=== PATIENT | female | born 1955 | race Caucasian/White ===

== ENCOUNTER → 2019-07-31 09:33 | Outpatient (CLI) | payer MEDICARE, OTHER, SELFPAY ==
--- NOTE | ~2019-07-31 | CT_ITS ---
EXAMINATION: CT abdomen pelvis wo con DATE: 07/31/2019 10:02 INDICATION: Left lower quadrant abdominal pain. Diverticulosis. TECHNIQUE: Computed tomography (CT) of the abdomen and pelvis was performed without intravenous contr ast. Automated exposure control and iterative reconstruction technique were employed. Exam dose: 106 7.05 mGy-cm total exam DLP. COMPARISON: 01/19/2018 CT abdomen pelvis FINDINGS: The lung bases are clear. There is a moderate sliding hiatal hernia. The liver, gallbladder, spleen, pancreas, and adrenal glands are unremarkable. No renal space occupyi ng mass lesion is evident. There is an approximately 2.5 mm nonobstructing lower pole left renal calculus. No other urinary trac t calculus or hydroureteronephrosis. There is atherosclerotic calcification but no aneurysm of the abdominal aorta. No intraperitoneal or retroperitoneal or pelvic mass lesion or adenopathy or ascites. There is prominent fat stranding in the pericolic area in the left lower abdomen and pelvis adjacent to the sigmoid colon evidence of sigmoid diverticula. Findings are most consistent with sigmoid diver ticulitis. No drainable abscess cavity is evident. There are multiple diverticula of the left and rig ht colon. No evidence of appendicitis. No bowel obstruction. No intraperitoneal free air. Small fat-containing umbilical hernia. The uterus, adnexal areas and urinary bladder are unremarkable. Included skeletal structures are unremarkable other than mild to moderate degenerative changes of the thoracic and lumbar spine. IMPRESSION: Sigmoid diverticulitis Diverticulosis of left and right colon Moderate sliding hiatal hernia 2.5 mm nonobstructing lower pole left renal calculus Dr. Cope telephoned the report on 07/31/2019 at 1142 hours to Sandee, Nurse Practitioner for Dr. Malorie yoo Reviewed, dictated and finalized at Location A. Reviewed, dictated and finalized at location A. ERY CHIEF IMPRESSION: Sigmoid diverticulitis Diverticulosis of left and right colon Moderate sliding hiatal hernia 2.5 mm nonobstructing lower pole left renal calculus Dr. Cope telephoned the report on 07/31/2019 at 1142 hours to Sandee Nurse Pr actitioner for Dr. Roman
== END ==
PROVIDERS: Visit Provider Family Medicine
DX: K57.32 Diverticulitis of large intestine without perforation or abscess without bleeding (principal); K42.9 Umbilical hernia without obstruction or gangrene; K44.9 Diaphragmatic hernia without obstruction or gangrene; N20.0 Calculus of kidney
CPT/HCPCS: 74176

== ENCOUNTER 2020-01-08 12:06 | Outpatient (CLI) | payer MEDICARE, SELFPAY ==
[2020-01-08 12:28] LABS: Basophils Absolute Auto 0.07 K/mm3 (0.00-0.10); Basophils Percent Auto 0.7 % (0.0-1.0); Eosinophils Absolute Auto 0.17 K/mm3 (0.02-0.50); Eosinophils Percent Auto 1.8 % (1.0-6.0); Hematocrit 40.5 % (35.0-42.0); Hemoglobin 12.9 g/dL (11.7-13.8); Immature Granulocyte Absolute 0.05 K/mm3 (0.00-0.00); Immature Granulocyte Percent A 0.5 % (0.0-0.0); Lymphocytes Percent Auto 31.3 % (18.0-42.0); Mean Corpuscular HGB Conc 31.9 g/dL (32.0-36.0); Mean Corpuscular Hemoglobin 29.3 pg (27.0-31.0); Mean Corpuscular Volume 91.8 fL (78.0-102.0); Monocytes Absolute Auto 0.73 K/mm3 (0.10-0.90); Monocytes Percent Auto 7.6 % (2.0-11.0); Neutrophils Absolute Auto 5.6 K/mm3 (1.7-7.2); Neutrophils Percent Auto 58.1 % (50.0-70.0); Platelet Count Result 380 K/mm3 (150-420); Red Blood Count 4.41 M/mm3 (4.20-5.40); Red Cell Distribution Width 12.8 % (11.6-14.4); White Blood Count 9.6 K/mm3 (4.8-10.8)
[2020-01-08 14:11] LABS: Erythrocyte Sedimentation Rate 34 mm/hr (0-20)
== END 2020-01-08 12:07 | disposition home or self-care (01) ==
LOC: CHSLAB 12:09
PROVIDERS: PCP Family Medicine; Visit Provider Family Medicine
DX: K12.30 Oral mucositis (ulcerative), unspecified (principal); M06.30 Rheumatoid nodule, unspecified site; R68.2 Dry mouth, unspecified
CPT/HCPCS: 36415; 85025; 85652; 86038

== ENCOUNTER 2020-08-25 10:06 | Outpatient (CLI) | payer MEDICARE, SELFPAY ==
[2020-08-25 10:17] LABS: Basophils Absolute Auto 0.07 K/mm3 (0.00-0.10); Basophils Percent Auto 0.8 % (0.0-1.0); Eosinophils Absolute Auto 0.25 K/mm3 (0.02-0.50); Eosinophils Percent Auto 2.9 % (1.0-6.0); Hematocrit 41.3 % (35.0-42.0); Hemoglobin 12.9 g/dL (11.7-13.8); Immature Granulocyte Absolute 0.03 K/mm3 (0.00-0.00); Immature Granulocyte Percent A 0.3 % (0.0-0.0); Lymphocytes Absolute Auto 2.46 K/mm3 (1.10-4.50); Lymphocytes Percent Auto 28.5 % (18.0-42.0); Mean Corpuscular HGB Conc 31.2 g/dL (32.0-36.0); Mean Corpuscular Hemoglobin 29.5 pg (27.0-31.0); Mean Corpuscular Volume 94.3 fL (78.0-102.0); Mean Platelet Volume 8.8 fl (9.2-11.8); Monocytes Absolute Auto 0.63 K/mm3 (0.10-0.90); Monocytes Percent Auto 7.3 % (2.0-11.0); Neutrophils Absolute Auto 5.2 K/mm3 (1.7-7.2); Neutrophils Percent Auto 60.2 % (50.0-70.0); Platelet Count Result 382 K/mm3 (150-420); Red Blood Count 4.38 M/mm3 (4.20-5.40); Red Cell Distribution Width 12.3 % (11.6-14.4); White Blood Count 8.6 K/mm3 (4.8-10.8)
[2020-08-25 10:29] LABS: Hemoglobin A1C 5.3 % (<5.7)
[2020-08-25 11:16] LABS: Cholesterol 190 mg/dL (0-200); HDL Direct 60 mg/dL (40-60); LDL Cholesterol Calculated 97 mg/dL (<130); Thyroid Stimulating Hormone 2.64 uIU/mL (0.36-3.74); Triglycerides 164 mg/dL (0-150)
[2020-08-28 11:53] LABS: Vitamin D 1,25 (OH)2 Total 55 pg/mL (18-72); Vitamin D2 1,25 (OH)2 <8 pg/mL; Vitamin D3 1,25 (OH)2 55 pg/mL
== END 2020-08-25 10:07 | disposition home or self-care (01) ==
PROVIDERS: PCP Family Medicine; Visit Provider Family Medicine
DX: E03.9 Hypothyroidism, unspecified (principal); I10 Essential (primary) hypertension; E55.9 Vitamin D deficiency, unspecified; E78.2 Mixed hyperlipidemia; R73.09 Other abnormal glucose
CPT/HCPCS: 36415; 80061; 82652; 83036; 84443; 85025

== ENCOUNTER 2020-08-26 10:01 | Outpatient (CLI) | payer MEDICARE, OTHER, SELFPAY ==
--- NOTE | ~2020-08-26 | DEXA_ITS ---
Bone Density Report Name: Guillermina Nicole Age: 65 Sex: Female Ethnicity: White Date of : 1955 Indication: osteopenia; height loss; Referring Provider: Maureen Roman Study: Bone densitometry was performed. Exam Date: August 26, 2020 Accession number: [id number] Bone Density: Region BMD T-score Z-score Classification AP Spine(L1-L4) 0.815 -2.1 -0.3 Osteopenia Femoral Neck (Left) 0.713 -1.2 0.3 Osteopenia Total Hip (Left) 0.939 0.0 1.3 Normal Femoral Neck (Right) 0.716 -1.2 0.4 Osteopenia Total Hip (Right) 0.886 -0.5 0.8 Normal Femoral Neck Mean 0.715 -1.2 0.4 Osteopenia Total Hip Mean 0.912 -0.2 1.0 Normal World Health Organization criteria for BMD impression classify patients as: Normal (T-score at or above -1.0), Osteopenia (T-score between -1.0 and -2.5), or Osteoporosis (T-score at or below -2.5). 10-year Fracture Risk(1): Major Osteoporotic Fracture 7.5% Hip Fracture 0.6% Reported Risk Factors: [place] (), Neck BMD=0.713, BMI=42.0 (1) FRAX(R) Version 3.08. Fracture probability calculated for an untreated patient. Fracture probability may be lower if the patient has received treatment. Previous Exams: Region Exam Age BMD T-score BMD Change BMD Change Date g/cm2 vs Baseline vs Previous AP Spine (L1-L4) 08/26/2020 65 0.815 -2.1 -0.010 (-1.2%) -0.010 (-1.2%) 10/05/2009 54 0.825 -2.0 Total Hip(Left) 08/26/2020 65 0.939 0.0 0.018 (2.0%)# 0.018 (2.0%)# 10/05/2009 54 0.921 -0.2 Total Hip(Right) 08/26/2020 65 0.886 -0.5 0.024 (2.7%)# 0.024 (2.7%)# 10/05/2009 54 0.862 -0.7 *Denotes significance at 95% confidence level, LSC for AP Spine = 0.022 g/cm2, LSC for Total Hip = 0.027 g/cm2 # Denotes dissimilar scan types or analysis methods Clinical Information Provided by Patient: Has used the following medications: Boniva (i.e. ibandronate), Fosamax (i.e. alendronate), HRT (i.e. estrogen/hormone therapy), Vitamin D Patient maximum height was 69 Drinks caffeinated beverages Onset of menses at age 14 Number of children 2 Impression: The patient has low bone mass, based on the Total Spine T-score. No significant bone loss was observed. Discussion: BONE DENSITY IS LOW AT ONE OR MORE SKELETAL SITES. This patient's lowest T-score is low at one or more skeletal sites. It meets the World Health Organization's (WHO) criteria for ?low bone mass? (T-score be
--- NOTE | ~2020-08-26 | MM_ITS ---
EXAMINATION: MM screening [facility] BI w francis HISTORY: Screening mammogram TECHNIQUE: Craniocaudal and mediolateral oblique 3-D tomosynthesis images were obtained and synthetic 2-D images were generated. CAD analysis was submitted and interpreted. COMPARISON: 06/25/2019, 03/23/2016, 08/21/2013 BREAST PARENCHYMAL COMPOSITION: There are scattered areas of fibroglandular density. FINDINGS: There is no evidence of suspicious mass, calcification, or architectural distortion to sugg est malignancy in either breast. There has been no suspicious interval change. IMPRESSION: 1. No mammographic evidence of malignancy. 2. Recommend routine screening mammography in one year. BI-RADS Category 1: Negative Reviewed, dictated and finalized at location A. 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
== END 2020-08-26 10:02 | disposition home or self-care (01) ==
PROVIDERS: PCP Family Medicine; Visit Provider Family Medicine
DX: Z78.0 Asymptomatic menopausal state (principal); Z12.31 Encounter for screening mammogram for malignant neoplasm of breast
CPT/HCPCS: 77063; 77067; 77080

== ENCOUNTER 2021-01-21 11:53 | Outpatient (CLI) | payer MEDICARE, OTHER, SELFPAY ==
[2021-01-21 12:23] LABS: Alanine Aminotransferase 16 U/L (4-35); Albumin Level 4.1 g/dL (3.5-5.1); Alkaline Phosphatase 89 U/L (38-126); Anion Gap 4 mmol/L (8-16); Aspartate Amino Transferase 22 U/L (14-36); Bilirubin,Total 0.7 mg/dL (0.2-1.3); Blood Urea Nitrogen 14 mg/dL (7-17); Calcium 9.9 mg/dL (8.4-10.2); Carbon Dioxide 30 mmol/L (22-30); Chloride 104 mmol/L (98-107); Estimated Glomerular Filt Rate > 60; Glucose 96 mg/dL (65-105); Potassium 4.1 mmol/L (3.4-5.0); Sodium 138 mmol/L (137-145)
[2021-01-21 12:25] LABS: Hemoglobin A1C 5.6 % (<5.7)
== END 2021-01-21 11:54 | disposition home or self-care (01) ==
PROVIDERS: PCP Family Medicine; Visit Provider Family Medicine
DX: I10 Essential (primary) hypertension (principal); R73.09 Other abnormal glucose
CPT/HCPCS: 36415; 80053; 83036

== ENCOUNTER 2021-08-25 12:49 | Outpatient (CLI) | payer MEDICARE, OTHER, SELFPAY ==
[2021-08-25 14:04] LABS: Cholesterol 185 mg/dL (0-200); Free T4 Free Thyroxine 1.03 ng/dL (0.76-1.46); HDL Direct 55 mg/dL (40-60); LDL Cholesterol Calculated 110 mg/dL (<130); Thyroid Stimulating Hormone 1.82 uIU/mL (0.36-3.74); Triglycerides 100 mg/dL (0-150)
[2021-08-30 07:35] LABS: Total Triiodothyronine (T3) 103 ng/dL (76-181)
== END 2021-08-25 12:50 | disposition home or self-care (01) ==
LOC: CHSLAB 12:53
PROVIDERS: PCP Family Medicine; Visit Provider Family Medicine
DX: E03.9 Hypothyroidism, unspecified (principal); E78.2 Mixed hyperlipidemia
CPT/HCPCS: 36415; 80061; 84439; 84443; 84480

== ENCOUNTER 2021-10-04 08:08 | Outpatient (CLI) | payer MEDICARE, OTHER, SELFPAY ==
--- NOTE | ~2021-10-04 | MM_ITS ---
EXAMINATION: MM screening [facility] BI w francis HISTORY: Screening mammogram TECHNIQUE: Craniocaudal and mediolateral oblique 3-D tomosynthesis images were obtained and synthetic 2-D images were generated. CAD analysis was submitted and interpreted. COMPARISON: 08/26/2020, 06/25/2019 BREAST PARENCHYMAL COMPOSITION: There are scattered areas of fibroglandular density. FINDINGS: There is no evidence of suspicious mass, calcification, or architectural distortion to sugg est malignancy in either breast. There has been no suspicious interval change. IMPRESSION: 1. No mammographic evidence of malignancy. 2. Recommend routine screening mammography in one year. BI-RADS Category 1: Negative Reviewed, dictated and finalized at location A. METER INSTALLER
== END 2021-10-04 08:09 | disposition home or self-care (01) ==
LOC: CHSIMG 08:10
PROVIDERS: PCP Family Medicine; Visit Provider Family Medicine
DX: Z12.31 Encounter for screening mammogram for malignant neoplasm of breast (principal)
CPT/HCPCS: 77063; 77067

== ENCOUNTER 2021-10-19 08:16 | Outpatient (CLI) | payer SELFPAY | END 2021-10-19 08:17 | disposition home or self-care (01) | PROVIDERS: PCP Family Medicine; Visit Provider Family Medicine | DX: E66.01 Morbid (severe) obesity due to excess calories (principal) | CPT/HCPCS: 99199 ==

== ENCOUNTER 2022-08-24 11:37 | Outpatient (CLI) | payer MEDICARE, OTHER, SELFPAY ==
[2022-08-24 12:17] LABS: Basophils Absolute Auto 0.09 K/mm3 (0.00-0.10); Eosinophils Percent Auto 2.2 % (1.0-6.0); Hematocrit 39.1 % (35.0-42.0); Hemoglobin 12.5 g/dL (11.7-13.8); Immature Granulocyte Absolute 0.04 K/mm3 (0.00-0.00); Immature Granulocyte Percent A 0.4 % (0.0-0.0); Lymphocytes Absolute Auto 2.72 K/mm3 (1.10-4.50); Lymphocytes Percent Auto 29.2 % (18.0-42.0); Mean Corpuscular Hemoglobin 29.7 pg (27.0-31.0); Mean Corpuscular Volume 92.9 fL (78.0-102.0); Mean Platelet Volume 9.2 fl (9.2-11.8); Monocytes Absolute Auto 0.68 K/mm3 (0.10-0.90); Monocytes Percent Auto 7.3 % (2.0-11.0); Neutrophils Absolute Auto 5.6 K/mm3 (1.7-7.2); Neutrophils Percent Auto 59.9 % (50.0-70.0); Platelet Count Result 366 K/mm3 (150-420); Red Blood Count 4.21 M/mm3 (4.20-5.40); Red Cell Distribution Width 12.9 % (11.6-14.4); White Blood Count 9.3 K/mm3 (4.8-10.8)
[2022-08-24 12:40] LABS: Hemoglobin A1C 5.7 % (<5.7)
[2022-08-24 12:49] LABS: Alanine Aminotransferase 18 U/L (14-59); Albumin Level 3.4 g/dL (3.4-5.0); Alkaline Phosphatase 94 U/L (46-116); Anion Gap 5 mmol/L (8-16); Aspartate Amino Transferase 12 U/L (15-37); Bilirubin,Total 0.6 mg/dL (0.00-1.00); Blood Urea Nitrogen 14 mg/dL (7-18); Carbon Dioxide 31 mmol/L (21-32); Chloride 103 mmol/L (98-108); Cholesterol 180 mg/dL (0-200); Estimated Glomerular Filt Rate > 60; Glucose 91 mg/dL (70-99); HDL Direct 64 mg/dL (40-60); LDL Cholesterol Calculated 95 mg/dL (<130); Osmolality Calculated 288 mOsm/kg (285-295); Potassium 4.3 mmol/L (3.5-5.1); Sodium 139 mmol/L (136-145); Total Protein 6.7 g/dL (6.4-8.2); Triglycerides 107 mg/dL (0-150)
[2022-08-24 13:14] LABS: Thyroid Stimulating Hormone Reflex 2.49 u/IU/mL (0.36-3.74)
[2022-08-28] LABS: Vitamin D 1,25 (OH)2 Total 46 pg/mL (18-72); Vitamin D2 1,25 (OH)2 <8 pg/mL; Vitamin D3 1,25 (OH)2 46 pg/mL
== END 2022-08-24 11:38 | disposition home or self-care (01) ==
LOC: CHSLAB 11:40
PROVIDERS: PCP Nurse Practitioner Gerontology; Visit Provider Nurse Practitioner Gerontology
DX: E03.9 Hypothyroidism, unspecified (principal); Z78.0 Asymptomatic menopausal state; E78.2 Mixed hyperlipidemia; I10 Essential (primary) hypertension; R73.09 Other abnormal glucose; E55.9 Vitamin D deficiency, unspecified
CPT/HCPCS: 36415; 80053; 80061; 82652; 83036; 84443; 85025

== ENCOUNTER 2022-08-30 13:24 | Outpatient (CLI) | payer MEDICARE, OTHER, SELFPAY ==
--- NOTE | ~2022-08-30 | DEXA_ITS ---
Bone Density Report Name: JAYE SIMPSON Age: 67 Sex: Female Ethnicity: White Date of : 1955 Indication: postmenopausal; screening for osteoporosis; parental hip fracture; height loss; inflammatory bowel disease; Referring Provider: HUGO BERGERON Study: Bone densitometry was performed. Exam Date: August 30, 2022 Accession number: [id number] Bone Density: Region BMD T-score Z-score Classification AP Spine(L1, L2, L3) 0.866 -1.4 0.6 Osteopenia Femoral Neck (Left) 0.690 -1.4 0.3 Osteopenia Total Hip (Left) 0.896 -0.4 1.0 Normal Femoral Neck (Right) 0.707 -1.3 0.4 Osteopenia Total Hip (Right) 0.878 -0.5 0.9 Normal Femoral Neck Mean 0.698 -1.4 0.3 Osteopenia Total Hip Mean 0.887 -0.5 1.0 Normal World Health Organization criteria for BMD impression classify patients as: Normal (T-score at or above -1.0), Osteopenia (T-score between -1.0 and -2.5), or Osteoporosis (T-score at or below -2.5). 10-year Fracture Risk: FRAX not reported because: Treated for osteoporosis Clinical Information Provided by Patient: Parent has had a hip fracture Is being treated for osteoporosis Has used the following medications: Boniva (i.e. ibandronate), Fosamax (i.e. alendronate), Vitamin D, Calcium Has the following medical conditions: Inflammatory bowel diseases Patient maximum height was 68 Menopause Age: 55 No regular weight bearing exercise Drinks caffeinated beverages Onset of menses at age 14 Number of children 2 Impression: The patient has low bone mass, based on the Total Spine T-score. The patient has risk factors, including: parental hip fracture. Discussion: It is important to ask patients whether they are taking their medications and to encourage continued and appropriate compliance with their osteoporosis therapies to reduce fracture risk. It is also important to review their risk factors and encourage appropriate calcium and vitamin D intakes, exercise, fall prevention and other lifestyle measures. Follow-Up: Consider a repeat BMD and Vertebral Fracture Assessment (VFA) exam in 2 years or sooner if medically necessary, to reassess this patient's status. Reported by: Dr. Marin Moncada on 08/30/2022 1:53:00 PM. Reviewed, dictated and finalized at location A. [facility]ITAL[facility]
== END 2022-08-30 13:25 | disposition home or self-care (01) ==
LOC: CHSIMG 13:26
PROVIDERS: PCP Family Medicine; Visit Provider Nurse Practitioner Gerontology
DX: Z78.0 Asymptomatic menopausal state (principal); E03.9 Hypothyroidism, unspecified; E78.2 Mixed hyperlipidemia; I10 Essential (primary) hypertension; M85.89 Other specified disorders of bone density and structure, multiple sites
CPT/HCPCS: 77080

== ENCOUNTER 2022-10-07 12:17 | Outpatient (CLI) | payer MEDICARE, OTHER, SELFPAY ==
--- NOTE | ~2022-10-07 | MM_ITS ---
EXAMINATION: MM screening [facility] BI w francis HISTORY: Screening TECHNIQUE: Craniocaudal and mediolateral oblique 3-D tomosynthesis images were obtained and synthetic 2-D images were generated. CAD analysis was submitted and interpreted. COMPARISON: Comparison to multiple prior studies sequentially, with oldest reviewed study dated 08/11. BREAST PARENCHYMAL COMPOSITION: There are scattered areas of fibroglandular density. FINDINGS: There is no evidence of suspicious mass, calcification, or architectural distortion to sugg est malignancy in either breast. There has been no suspicious interval change. IMPRESSION: 1. No mammographic evidence of malignancy. 2. Recommend routine screening mammography in one year. BI-RADS Category 1: Negative. Reviewed, dictated and finalized at location A. PICKER
== END 2022-10-07 12:18 | disposition home or self-care (01) ==
LOC: CHSIMG 12:19
PROVIDERS: PCP Family Medicine; Visit Provider Family Medicine
DX: Z12.31 Encounter for screening mammogram for malignant neoplasm of breast (principal)
CPT/HCPCS: 77063; 77067

== ENCOUNTER 2022-12-01 19:07 | Emergency (ER) | payer MEDICARE, OTHER, SELFPAY ==
[2022-12-01 19:20] VITALS: BP 103/57; PULSE 82; RESP 18; TEMP 36.3; O2SAT 98
--- NOTE | 2022-12-01 19:24 | ECG_ITS ---
Measurements Intervals [place] Rate: 72 P: 61 NM: 219 QRS: 7 QRSD: 102 T: -5 QT: 426 QTc: 467 Interpretive Statements SINUS RHYTHM WITH FIRST DEGREE AV BLOCK CONSIDER INFERIOR INFARCT, AGE INDETERMINATE BASELINE ARTIFACT- I, II, AVR, AVF ABNORMAL ECG NO PREVIOUS ECG AVAILABLE FOR COMPARISON Electronically Signed On 12-01-2022 20:51:56 CDT by Simon Mauricio D.O.
[2022-12-01] MEDS: SODIUM CHLORIDE 0.9% IV 1,000 ML 999 ML IV CONT (19:39)
[2022-12-01] MEDS: ONDANSETRON INJ 4 MG/2 ML VIAL IV PUSH ×2 (19:39→21:01)
[2022-12-01 19:40] LABS: Basophils Absolute Auto 0.05 K/mm3 (0.00-0.10); Basophils Percent Auto 0.4 % (0.0-1.0); Eosinophils Percent Auto 1.6 % (1.0-6.0); Hematocrit 38.1 % (35.0-42.0); Hemoglobin 12.2 g/dL (11.7-13.8); Immature Granulocyte Absolute 0.04 K/mm3 (0.00-0.00); Immature Granulocyte Percent A 0.3 % (0.0-0.0); Lymphocytes Percent Auto 34.6 % (18.0-42.0); Mean Corpuscular Hemoglobin 29.7 pg (27.0-31.0); Mean Corpuscular Volume 92.7 fL (78.0-102.0); Mean Platelet Volume 9.2 fl (9.2-11.8); Monocytes Absolute Auto 0.86 K/mm3 (0.10-0.90); Monocytes Percent Auto 7.1 % (2.0-11.0); Neutrophils Absolute Auto 6.8 K/mm3 (1.7-7.2); Platelet Count Result 381 K/mm3 (150-420); Red Blood Count 4.11 M/mm3 (4.20-5.40); Red Cell Distribution Width 13.1 % (11.6-14.4); White Blood Count 12.2 K/mm3 (4.8-10.8)
[2022-12-01 19:55] LABS: Alanine Aminotransferase 20 U/L (14-59); Albumin Level 3.3 g/dL (3.4-5.0); Alkaline Phosphatase 93 U/L (46-116); Anion Gap 13 mmol/L (8-16); Aspartate Amino Transferase 15 U/L (15-37); Bilirubin,Total 0.5 mg/dL (0.00-1.00); Blood Urea Nitrogen 16 mg/dL (7-18); Calcium 8.9 mg/dL (8.5-10.1); Carbon Dioxide 24 mmol/L (21-32); Chloride 103 mmol/L (98-108); Estimated CRCL calculation 69 ml/min; Estimated Glomerular Filt Rate > 60; Glucose 169 mg/dL (70-99); Lipase 19 U/L (16-77); Osmolality Calculated 295 mOsm/kg (285-295); Potassium 3.7 mmol/L (3.5-5.1); Sodium 140 mmol/L (136-145)
[2022-12-01 20:25] VITALS: BP 116/54; PULSE 79; RESP 18; O2SAT 97
[2022-12-01 20:25] LABS: Influenza A QL RT-PCR Negative (Negative); Influenza B QL RT-PCR Negative (Negative); SARS-CoV-2 RNA PCR Negative (Negative)
[2022-12-01 20:26] LABS: RSV RNA, RT-PCR Negative (Negative)
--- NOTE | 2022-12-01 20:48 | ED.GENADULT ---
HPI - General Adult General Chief complaint: Unspecified Stated complaint: Nausea/Vomiting/Diarrhea Time Seen by Provider: 12/01/22 19:13 Source: patient and family Mode of arrival: ambulatory History of Present Illness HPI narrative: Patient is a 67-year-old female with history of hypertension presents via EMS with a 3 day history of nausea vomiting and diarrhea otherwise there is no abdominal pain no flank pain no dysuria or hematuria no chest pain or shortness of breath. Patient has been having symptoms for the last 3 days and has intensified over the last couple of hours and EMS was called to bring the patient to the ER. Otherwise she is afebrile has been having episodes of nausea and vomiting. Onset (ago): day(s) Severity: moderate Related Data Home Medications Medication Instructions Recorded Confirmed aspirin 325 mg tablet 325 mg PO DAILY 07/26/19 12/01/22 tramadol 50 mg tablet 50 mg PO Q6H PRN Knee pain 06/09/21 12/01/22 Allergies Allergy/AdvReac Type Severity Reaction Status Date / Time hydrocodone Allergy Mild Vomitting Verified 12/01/22 19:20 oxycodone Allergy Unknown nausea Verified 12/01/22 19:20 Review of Systems Review of Systems: All systems reviewed & are unremarkable except as noted in HPI and below PMFSH Past Medical History Medical History BMI greater than 40 Essential (primary) hypertension Left knee DJD Mixed hyperlipidemia Right knee DJD Surgical History Surgical History History of cataract surgery Family History Family History Grandparent Diabetes mellitus Mother Cerebrovascular accident Social History Social History Social History: Smoking status: Former smoker Second hand tobacco smoke exposure: No Smoking end date: 09/11/78 Alcohol intake: never Alcohol use details: pt drinks socially Substance use: never Substance use type: does not use Living arrangements: with family Occupation/Education: retired Gender identity (if verbalized by the patient): Female Sexual Orientation (if Verbalized by the Patient): Straight or Heterosexual Exam Const: General: cooperative, healthy appearing, comfortable, no acute distress, well developed and alert HENMT: Head: normal to inspection Face/Nose/Sinus: Normal external nose present Face and sinus: normal facial exam Mouth: Yes Normal oral and palatal mucosa present and Yes moist mucous membranes abnormal Eyes: General: appearance normal, both eyes and all related structures Visual Reyes: normal visual reyes by confrontation EOM: EOMs intact bilaterally Neck: Neck: normal visual inspection, full ROM and no lymphadenopathy Chest: Chest palpation & inspection: normal inspection of the chest and normal palpation of entire chest wall Resp: Effort & Inspection: normal respiratory effort and able to speak in complete sentences Cardio: Jugular venous distension: no JVD Palpation: normal PMI Rate: regular rate Rhythm: regular rhythm GI: Inspection: normal to inspection Auscultation: normal bowel sounds : General: Yes bimanual renal exam normal bilaterally Back/Spine/Pelvis: Cervical Spine: normal cervical lordosis and cervical ROM normal Thoracic/Lumbar Spine: thoracic and lumbar spine normal to inspection and thoraco-lumbar ROM normal Skin: General skin exam: normal color and no rashes or lesions noted Rashes: no rashes Neuro: General: oriented to person, oriented to place, oriented to time and patient oriented x3 Extrem: General: normal to inspection, full ROM and capillary refill normal Psych: Appearance: grossly normal Mental Status: mental status grossly normal Speech and movement: Normal speech and movement present Course Course Emergency Course: Labs were re
[2022-12-01 21:13] LABS: Appearance Urine Clear (Clear); Bilirubin Urine 1+ (Negative); Blood Urine Negative (Negative); Color Urine Yellow (Yellow); Glucose Urine UA Negative (Negative); Ketones Urine Negative (Negative); Leukocyte Esterase Ur 1+ LEU/UL (Negative); Nitrate Urine Negative (Negative); Protein Urine Trace (Negative); Specific Grav Ur >= 1.030 (1.010-1.020)
[2022-12-01 21:15] VITALS: BP 128/60; PULSE 79; RESP 18; O2SAT 96
[2022-12-01 21:18] LABS: Add Urine Microscopic? YES; Squamous Epithelial Cell Urine Many /hpf (Few); WBC Urine >75 /hpf (0-3)
[2022-12-01 21:19] LABS: Amorphous Sediment Urine Heavy; Bacteria Urine 4+ /hpf; Mucus Urine Heavy /lpf
== END 2022-12-01 22:04 | disposition home or self-care (01) ==
PROVIDERS: Emergency Provider Emergency Medicine; PCP Family Medicine
DX: K52.9 Noninfective gastroenteritis and colitis, unspecified (principal); E86.0 Dehydration; N39.0 Urinary tract infection, site not specified; I10 Essential (primary) hypertension; Z79.82 Long term (current) use of aspirin; Z79.891 Long term (current) use of opiate analgesic; Z87.891 Personal history of nicotine dependence; Z20.822 Contact with and (suspected) exposure to COVID-19
CPT/HCPCS: 36415; 80053; 81001; 83690; 85025; 87086; 87088; 87637; 93005; 96361; 96365; 96375; 96376; 99283; 99284; J0696; J2405; J7030

== ENCOUNTER 2023-01-09 09:42 | Outpatient (CLI) | payer MEDICARE, SELFPAY ==
[2023-01-09 09:59] LABS: Basophils Absolute Auto 0.07 K/mm3 (0.00-0.10); Basophils Percent Auto 0.9 % (0.0-1.0); Eosinophils Absolute Auto 0.16 K/mm3 (0.02-0.50); Hematocrit 39.4 % (35.0-42.0); Hemoglobin 12.7 g/dL (11.7-13.8); Immature Granulocyte Absolute 0.03 K/mm3 (0.00-0.00); Immature Granulocyte Percent A 0.4 % (0.0-0.0); Lymphocytes Absolute Auto 2.89 K/mm3 (1.10-4.50); Lymphocytes Percent Auto 35.7 % (18.0-42.0); Mean Corpuscular HGB Conc 32.2 g/dL (32.0-36.0); Mean Corpuscular Hemoglobin 29.7 pg (27.0-31.0); Mean Corpuscular Volume 92.3 fL (78.0-102.0); Mean Platelet Volume 8.7 fl (9.2-11.8); Monocytes Absolute Auto 0.48 K/mm3 (0.10-0.90); Monocytes Percent Auto 5.9 % (2.0-11.0); Neutrophils Absolute Auto 4.5 K/mm3 (1.7-7.2); Neutrophils Percent Auto 55.1 % (50.0-70.0); Platelet Count Result 351 K/mm3 (150-420); Red Blood Count 4.27 M/mm3 (4.20-5.40); White Blood Count 8.1 K/mm3 (4.8-10.8)
[2023-01-09 10:44] LABS: Alanine Aminotransferase 37 U/L (14-59); Albumin Level 3.4 g/dL (3.4-5.0); Alkaline Phosphatase 95 U/L (46-116); Anion Gap 9 mmol/L (8-16); Aspartate Amino Transferase 18 U/L (15-37); Bilirubin,Total 0.6 mg/dL (0.00-1.00); Blood Urea Nitrogen 12 mg/dL (7-18); Calcium 9.3 mg/dL (8.5-10.1); Carbon Dioxide 27 mmol/L (21-32); Chloride 106 mmol/L (98-108); Estimated Glomerular Filt Rate > 60; Free T4 Free Thyroxine 1.04 ng/dL (0.76-1.46); Glucose 104 mg/dL (70-99); Osmolality Calculated 293 mOsm/kg (285-295); Potassium 4.2 mmol/L (3.5-5.1); Sodium 142 mmol/L (136-145); Thyroid Stimulating Hormone 2.41 uIU/mL (0.36-3.74); Total Protein 6.8 g/dL (6.4-8.2)
[2023-01-09 12:39] LABS: Appearance Urine Clear (Clear); Bilirubin Urine Negative (Negative); Blood Urine Trace-Intact (Negative); Color Urine Light Yellow (Yellow); Glucose Urine UA Negative (Negative); Ketones Urine Negative (Negative); Leukocyte Esterase Ur Trace LEU/UL (Negative); Nitrate Urine Negative (Negative); Protein Urine Negative (Negative); Specific Grav Ur <= 1.005 (1.010-1.020)
[2023-01-09 12:43] LABS: Add Urine Microscopic? YES; Bacteria Urine Trace /hpf; RBC Urine None seen /hpf (0-2); Squamous Epithelial Cell Urine Few /hpf (Few); WBC Urine 0-3 /hpf (0-3)
[2023-01-14 04:44] LABS: Total Triiodothyronine (T3) 113.5 ng/dL (76-181)
== END 2023-01-09 09:43 | disposition home or self-care (01) ==
PROVIDERS: PCP Family Medicine; Visit Provider Nurse Practitioner Gerontology
DX: R94.31 Abnormal electrocardiogram [ECG] [EKG] (principal); R55 Syncope and collapse; E78.2 Mixed hyperlipidemia; E03.9 Hypothyroidism, unspecified
CPT/HCPCS: 36415; 80053; 81001; 84439; 84443; 84480; 85025

== ENCOUNTER 2023-01-16 12:31 | Outpatient (CLI) | payer MEDICARE, OTHER, SELFPAY ==
--- NOTE | ~2023-01-16 | US_ITS ---
EXAMINATION: US carotid duplex BI DATE: 01/16/2023 13:26 INDICATION: Syncope and collapse TECHNIQUE: Grayscale, color Doppler, and pulsed Doppler images of the cervical carotid arteries were obtained. The degree of vessel stenosis is placed in one of the following categories: normal, <50%, 5 0-69%, >=70% but less than near-occlusion, near-occlusion, or total occlusion. Note that percent sten osis relative to normal distal artery lumen diameter is indirectly measured from velocity measurement s as described by Jaxon, et al. Radiology 2003; 229:340-346. COMPARISON: None. FINDINGS: RIGHT: The right common carotid artery (CCA) peak systolic velocity (PSV) is 75 cm/s. The right internal car otid artery (ICA) PSV is 88 cm/s. The right ICA end-diastolic velocity (EDV) is 35 cm/s. The right IC A/CCA PSV ratio is 1.2. Grayscale and color Doppler images yield an estimate of <50% diameter reducti on from plaque in the ICA. The external carotid artery (ECA) PSV is 103 cm/s. There is antegrade flow in the right vertebral artery. LEFT: The left CCA PSV is 97 cm/s. The left ICA PSV is 81 cm/s. The left ICA EDV is 35 cm/s. The left ICA/C CA PSV ratio is 0.8. Grayscale and color Doppler images yield an estimate of <50% diameter reduction from plaque in the ICA. The ECA PSV is 95 cm/s. There is antegrade flow in the left vertebral artery. IMPRESSION: 1. <50% stenosis from minimal plaque in the right internal carotid artery. 2. <50% stenosis from minimal plaque in the left internal carotid artery. Reviewed, dictated and finalized at location A.
--- NOTE | ~2023-01-16 | XR_ITS ---
XR chest 2V 01/16/2023 12:52 Indication: Syncope. Shortness of breath. Procedure: 2 view chest Comparison: 02/14/2013 Findings: Heart size normal. No focal air space disease, pulmonary edema, pleural effusion or suspect ed pneumothorax. There are nodular densities in the right lower lung which may represent confluence n o focal opacities, although parenchymal nodule not excluded. There is moderate thoracic spondylosis w ith accentuated kyphosis. Impression: 1: Nodular densities right lower thorax. Recommend correlation with CT chest to exclude parenchymal n odule. Reviewed, dictated and finalized at location B. Impression: 1: Nodular densities right lower thorax. Recommend correlation with CT chest to exclude parenchymal nodule.
--- NOTE | ~2023-01-16 | CT_ITS ---
EXAMINATION: CT brain wo con DATE: 01/16/2023 12:56 INDICATION: Syncope. Headache. TECHNIQUE: Computed tomography (CT) of the head was performed without intravenous contrast. The mA wa s adjusted according to patient size. Iterative reconstruction technique was employed. The dose-lengt h product was 605.33 mGy-cm. COMPARISON: None FINDINGS: There is no intracranial hemorrhage, acute infarction, or abnormal intracranial mass lesion . The ventricles are normal in size. There are likely changes of right ocular lens replacement surger y. There is mild mucosal thickening in the ethmoid sinuses. The mastoid air cells are normal. IMPRESSION: 1. Normal brain. Reviewed, dictated and finalized at location A. IMPRESSION: 1. Normal brain.
== END 2023-01-16 12:32 | disposition home or self-care (01) ==
PROVIDERS: PCP Family Medicine; Visit Provider Nurse Practitioner Gerontology
DX: R94.31 Abnormal electrocardiogram [ECG] [EKG] (principal); E03.9 Hypothyroidism, unspecified; E78.2 Mixed hyperlipidemia; R55 Syncope and collapse; I65.23 Occlusion and stenosis of bilateral carotid arteries
CPT/HCPCS: 70450; 71046; 93880

== ENCOUNTER 2023-01-20 13:08 | Outpatient (CLI) | payer MEDICARE, OTHER, SELFPAY ==
--- NOTE | ~2023-01-20 | CT_ITS ---
CT Scan of the Chest without Contrast: Clinical Indication: Abnormal findings on diagnostic imaging Technique: Contiguous sections were acquired throughout the chest without intravenous contrast. Dose reduction technique was used on this scan by utilizing automated exposure control and iterative recon struction technique. The dose-length product (DLP) was 569.96 mGy-cm. Findings: There is no evidence of any significant mediastinal, hilar or axillary lymphadenopathy. The mediastin al soft tissues appear normal. There is no evidence of pleural or pericardial effusion. The lungs are clear. No pulmonary nodules or infiltrates are noted. Images through the upper abdomen reveal moderate hiatal hernia. Impression: Moderate hiatal hernia. Clear lungs. Reviewed, dictated and finalized at location . Impression: Moderate hiatal hernia. Clear lungs.
== END 2023-01-20 13:09 | disposition home or self-care (01) ==
PROVIDERS: PCP Family Medicine; Visit Provider Nurse Practitioner Gerontology
DX: R93.89 Abnormal findings on diagnostic imaging of other specified body structures (principal); K44.9 Diaphragmatic hernia without obstruction or gangrene
CPT/HCPCS: 71250

== ENCOUNTER 2023-02-20 13:47 | Outpatient (CLI) | payer MEDICARE, OTHER, SELFPAY ==
--- NOTE | 2023-02-20 14:03 | ECHO_ITS ---
Patient Info Name: Guillermina Nicole Age: 67 years : 1955 Gender: Female Ht: 67 in Wt: 260 lbs BSA: 2.42 m2 HR: 66 bpm BP: 120 / 80 mmHg Technical Quality: Fair Exam Date: 02/20/2023 1:53 PM Exam Location: [facility] Patient Status: Outpatient Admit Date: 02/20/2023 Staff Ordering Physician: Simon Mauricio DO Apple Packing Header: Nhung Ramírez RDCS Attending Provider: Simon Mauricio DO Referring Physician: Hang RONQUILLO; Exam Type: CA echo dop color flow w con Study Info Indications - other forms of dyspnea Complete two-dimensional, color flow and Doppler transthoracic echocardiogram is performed with contrast to opacify the left ventricle and to improve the deliniation of the left ventricle endocardial borders. Contrast/Agitated Saline Contrast/Ag. Saline: Definity Amount: 3.00 ml Summary 1. Technically suboptimal study due to poor sonographic images. 2. Definity contrast administered improved wall motion interpretation. 3. Left ventricular chamber dimension is normal. 4. Left ventricular systolic function is normal, estimated at 60-65%. 5. There is mild concentric increased left ventricular wall thickness. 6. The left ventricular diastolic function is grade I diastolic dysfunction. 7. E/e' 10 is mildly elevated. 8. There is trace tricuspid valve regurgitation. 9. No pulmonary hypertension, estimated pulmonary arterial systolic pressure is 8 mmHg. Left Ventricle E/e' 10 is mildly elevated. Definity contrast administered improved wall motion interpretation. Technically suboptimal study due to poor sonographic images. Left ventricular chamber dimension is normal. Left ventricular systolic function is normal, estimated at 60-65%. There is mild concentric increased left ventricular wall thickness. The left ventricular diastolic function is grade I diastolic dysfunction. Right Ventricle Right ventricular systolic function is normal and with normal TAPSE 3.3 cm. Right ventricular chamber dimension is normal. Left Atria Left atrial chamber dimension is normal. Right Atria Right atrial chamber dimension is normal. Aortic Valve The aortic valve is trileaflet. There is no aortic valve stenosis. There is no aortic valve regurgitation. Pulmonic Valve There is no pulmonic regurgitation. Mitral Valve There is no mitral valve stenosis. There is no mitral valve regurgitation. Tricuspid Valve There is trace tricuspid valve regurgitation. No pulmonary hypertension, estimated pulmonary arterial systolic pressure is 8 mmHg. Pericardium/Pleural There is no pericardial effusion. Inferior Vena Cava Normal inferior vena cava with >50% collapse upon inspiration consistent with normal right atrial pressure, 5 mmHg. Aorta The aortic root size at the sinus of Valsalva is normal. Left Ventricular Outflow Tract Name Value Normal LVOT 2D LVOT Diameter 2.21 cm LVOT Doppler LVOT Peak Velocity 98.29 cm/s LVOT Peak Gradient 4 mmHg LVOT Mean Gradient 2 mmHg LVOT VTI 26.87 cm LVOT VTI/AV VTI Ratio 0.85 LVOT Stroke Volume
== END 2023-02-20 13:48 | disposition home or self-care (01) ==
PROVIDERS: PCP Family Medicine; Visit Provider Internal Medicine Cardiovascular Disease
DX: R06.09 Other forms of dyspnea (principal)
CPT/HCPCS: C8929

== ENCOUNTER 2023-08-31 11:22 | Outpatient (CLI) | payer MEDICARE, OTHER, SELFPAY ==
[2023-08-31 12:33] LABS: Alanine Aminotransferase 13 U/L (14-59); Albumin Level 3.6 g/dL (3.4-5.0); Alkaline Phosphatase 88 U/L (46-116); Anion Gap 3 mmol/L (8-16); Aspartate Amino Transferase 12 U/L (15-37); Bilirubin,Total 0.7 mg/dL (0.00-1.00); Blood Urea Nitrogen 11 mg/dL (7-18); Calcium 9.5 mg/dL (8.5-10.1); Carbon Dioxide 33 mmol/L (21-32); Chloride 102 mmol/L (98-108); Cholesterol 211 mg/dL (0-200); Estimated Glomerular Filt Rate > 60; Glucose 91 mg/dL (70-99); HDL Direct 63 mg/dL (40-60); LDL Cholesterol Calculated 123 mg/dL (<130); Magnesium 2.1 mg/dL (1.8-2.4); Osmolality Calculated 285 mOsm/kg (285-295); Potassium 4.8 mmol/L (3.5-5.1); Sodium 138 mmol/L (136-145); Total Protein 6.9 g/dL (6.4-8.2); Triglycerides 124 mg/dL (0-150)
== END 2023-08-31 11:23 | disposition home or self-care (01) ==
LOC: CHSLAB 11:25
PROVIDERS: PCP Family Medicine; Visit Provider Internal Medicine Cardiovascular Disease
DX: E78.2 Mixed hyperlipidemia (principal)
CPT/HCPCS: 36415; 80053; 80061; 83735

== ENCOUNTER 2024-03-07 11:17 | Outpatient (CLI) | payer MEDICARE, SELFPAY ==
[2024-03-07 11:38] LABS: Basophils Absolute Auto 0.07 K/mm3 (0.00-0.10); Basophils Percent Auto 0.7 % (0.0-1.0); Eosinophils Absolute Auto 0.22 K/mm3 (0.02-0.50); Eosinophils Percent Auto 2.1 % (1.0-6.0); Hemoglobin 11.6 g/dL (11.7-13.8); Immature Granulocyte Absolute 0.06 K/mm3 (0.00-0.00); Immature Granulocyte Percent A 0.6 % (0.0-0.0); Lymphocytes Absolute Auto 2.65 K/mm3 (1.10-4.50); Lymphocytes Percent Auto 25.4 % (18.0-42.0); Mean Corpuscular HGB Conc 31.4 g/dL (32-36); Mean Corpuscular Hemoglobin 28.7 pg (27.0-31.0); Mean Corpuscular Volume 91.6 fL (78.0-102.0); Mean Platelet Volume 8.5 fl (9.2-11.8); Monocytes Absolute Auto 0.72 K/mm3 (0.10-0.90); Monocytes Percent Auto 6.9 % (2.0-11.0); Neutrophils Absolute Auto 6.72 K/mm3 (1.70-7.20); Neutrophils Percent Auto 64.3 % (50.0-70.0); Platelet Count Result 446 K/mm3 (150-420); Red Blood Count 4.04 M/mm3 (4.20-5.40); Red Cell Distribution Width 13.2 % (11.6-14.4); White Blood Count 10.4 K/mm3 (4.8-10.8)
[2024-03-07 12:13] LABS: Alanine Aminotransferase 19 U/L (14-59); Albumin Level 3.2 g/dL (3.4-5.0); Alkaline Phosphatase 88 U/L (46-116); Anion Gap 6 mmol/L (4-12); Aspartate Amino Transferase 14 U/L (15-37); Bilirubin,Total 0.5 mg/dL (0.00-1.00); Blood Urea Nitrogen 12 mg/dL (7-18); CRP < 0.5 mg/dL (0.0-0.9); Calcium 9.2 mg/dL (8.5-10.1); Carbon Dioxide 28 mmol/L (21-32); Chloride 103 mmol/L (98-108); Creatine Kinase 30 U/L (26-192); Estimated Glomerular Filt Rate > 60; Glucose 89 mg/dL (70-99); Osmolality Calculated 282 mOsm/kg (285-295); Potassium 4.5 mmol/L (3.5-5.1); Sodium 137 mmol/L (136-145); Total Protein 6.8 g/dL (6.4-8.2)
[2024-03-07 12:41] LABS: Erythrocyte Sedimentation Rate 48 mm/hr (0-20)
== END 2024-03-07 11:18 | disposition home or self-care (01) ==
LOC: CHSLAB 11:19
PROVIDERS: PCP Family Medicine; Visit Provider Family Medicine
DX: I10 Essential (primary) hypertension (principal); K52.9 Noninfective gastroenteritis and colitis, unspecified; R53.1 Weakness
CPT/HCPCS: 36415; 80053; 82550; 85025; 85652; 86140

== ENCOUNTER 2024-03-13 12:43 | Outpatient (CLI) | payer MEDICARE, OTHER, SELFPAY ==
--- NOTE | ~2024-03-13 | MM_ITS ---
EXAMINATION: MM screening [facility] BI w francis HISTORY: Screening mammogram TECHNIQUE: Craniocaudal and mediolateral oblique 3-D tomosynthesis images were obtained and synthetic 2-D images were generated. CAD analysis was submitted and interpreted. COMPARISON: 10/07/2022, 10/04/2021, 08/26/2020 BREAST PARENCHYMAL COMPOSITION:Not Dense. There are scattered areas of fibroglandular density. FINDINGS: No suspicious mass, calcification, or architectural distortion are identified in either monico ast to suggest malignancy. There has been no suspicious interval change. IMPRESSION: No mammographic evidence of malignancy. Recommend routine screening mammography in one year. BI-RADS Category 1: Negative Reviewed, dictated and finalized at location .
== END 2024-03-13 12:44 | disposition home or self-care (01) ==
LOC: CHSIMG 12:45
PROVIDERS: PCP Family Medicine; Visit Provider Family Medicine
DX: Z12.31 Encounter for screening mammogram for malignant neoplasm of breast (principal)
CPT/HCPCS: 77063; 77067

== ENCOUNTER 2024-07-15 14:50 | Outpatient (CLI) | payer MEDICARE, OTHER, SELFPAY ==
--- NOTE | ~2024-07-15 | US_ITS ---
LEFT LOWER EXTREMITY VENOUS ULTRASOUND Ordering provider: Kim Cody PA-C History: . M79.89 - Other specified soft tissue disorders . Comparison: None. FINDINGS: --COMMON FEMORAL: Thrombosis is noted. --Profunda femoris vein: Thrombosis is noted. --PROXIMAL SUPERFICIAL FEMORAL: Thrombosis is seen.. --DISTAL SUPERFICIAL FEMORAL: Thrombosis is seen. --POPLITEAL: Thrombosis is seen. --POSTERIOR TIBIAL: Patent and free of thrombus. Normal compressibility, phasic flow and augmentation . Peroneal vein: Thrombosed. IMPRESSION: Deep vein thrombosis left lower extremity veins. Reviewed, dictated and finalized at location A. MAN
== END 2024-07-15 14:51 | disposition home or self-care (01) ==
PROVIDERS: PCP Family Medicine; Visit Provider Physician Assistant
DX: M79.89 Other specified soft tissue disorders (principal); I82.4Z2 Acute embolism and thrombosis of unspecified deep veins of left distal lower extremity
CPT/HCPCS: 93971

== ENCOUNTER 2024-08-13 16:24 | Emergency (ER) | payer MEDICARE, OTHER, SELFPAY ==
[2024-08-13] VITALS (25 sets, daily range): BP systolic 126–138; BP diastolic 59–71; PULSE 80; RESP 18; TEMP 36.5; O2SAT 80–99
--- NOTE | ~2024-08-13 | CT_ITS ---
CT abdomen pelvis w con Ordering provider: Jeff Burt MD History: 69 years Female with . abdo pain . Comparison: None. Technique: CT abdomen and pelvis with IV and without oral contrast. Automated exposure control and it erative reconstruction technique were employed. The dose-length product was 1479.48 mGy-cm. 100 mL Omnipaque 350 was given IV. Findings: VISUALIZED LOWER CHEST: Normal. UPPER ABDOMINAL ORGANS: Liver: Normal. Gallbladder: Normal. Spleen: Normal. Stomach/duodenum: Sliding hiatus hernia. Pancreas: Normal. Adrenals: Prominent left adrenal gland. Kidneys: 5 mm stone is seen in the left kidney lower pole.. PELVIC ORGANS: The bladder shows slight thickening in the wall anteriorly. Adjacent bowel loop is see n near to the anterior bladder with no definite fistula. BOWEL AND MESENTERY: Colon: Thickening of the wall of the sigmoid colon is seen. Further evaluation advised to exclude inf iltrative process. Colitis is possible. Dilatation of the large bowel is seen proximal to this area. This area of thickening measures 5.9 cm. Normal appendix. Small Bowel: Normal. No obstruction. Peritoneum/mesentery: No free air or free fluid. No mesenteric lymphadenopathy. RETROPERITONEUM: Filling defect or hypodensity is seen in the left femoral vein extending into the le ft iliac vein and inferior vena cava suggestive of a thrombus. Mild atheromatous disease of the abdom inal aorta. No retroperitoneal lymphadenopathy. MUSCULOSKELETAL: Superficial soft tissues: The superficial soft tissues are normal. Bones: Age appropriate degenerative changes of the spine. Bilateral sacroiliacs. IMPRESSION: 1. Thrombosis seen in the IVC, left iliac vein and left femoral vein suggestive of DVT. The proximal thrombus is opposite the right renal vein. 2. Thickened wall of the sigmoid colon suggestive of a mass versus colitis. Sigmoidoscopy is advised . Proximal dilatation of the colon is noted. 3. Left kidney stone.. 4. Highly difficult to the aorta suggestive cardiomegaly radiology sliding hiatus hernia. Physician: Jeff Burt MD Was notified with the result of the patient at 8:22 PM on September 09, 2024. Reviewed, dictated and finalized at location A. [facility] IMPRESSION: 1. Thrombosis seen in the IVC, left iliac vein and left femoral vein suggestiv e of DVT. The proximal thrombus is opposite the right renal vein. 2. Thickened wall of the sigmoid colon suggestive of a mass versus colitis. Si gmoidoscopy is advised. Proximal dilatation of the colon is noted. 3. Left kidney stone.. 4. Highly difficult to the aorta suggestive cardiomegaly radiology sliding hi atus hernia. Physician: Jeff Burt MD Was notified with the result of the patient at 8:22 PM on September 09, 2024.
--- NOTE | 2024-08-13 16:32 | ED_ITS ---
HPI - Abdominal Pain General Chief Complaint: Abdominal Pain Stated Complaint: SICK Time Seen by Provider: 08/13/24 16:29 Source: patient and family Mode of arrival: ambulatory Limitations: no limitations History of Present Illness HPI narrative: patient is a 69-year-old female with left lower quadrant abdominal pain for the past 3 days. Patient has a history of diverticulitis /colitis. He is having nausea and diarrhea. No bleeding. MD elicited complaint: abdominal pain ( Left lower quadrant) Pertinent past history: diverticulitis Onset (ago): day(s) (3) Pain Consistency: intermittent and colicky Location: LLQ Severity: moderate Pain scale (0-10): 6 Quality: cramping and sharp Radiation: other ( mid abdomen) Migration to: periumbilical Exacerbating factors: nothing Relieving factors: nothing Context: confirms history of similar episodes Associated symptoms: nausea and diarrhea Related Data Home Medications Medication Instructions Recorded Confirmed rivaroxaban 15 mg (42)-20 mg (9) See Rx Instructions PO .COMPLEX 07/15/24 08/13/24 tablets in a starter pack (Xarelto DVT-PE Treatment 30-Day Starter) Allergies Allergy/AdvReac Type Severity Reaction Status Date / Time hydrocodone Allergy Mild Vomitting Verified 08/13/24 23:15 oxycodone Allergy Unknown nausea Verified 08/13/24 23:15 Review of Systems Review of Systems: All systems reviewed & are unremarkable except as noted in HPI and below Constitutional: Constitutional: Reports no additional constitutional complaints Eyes: Eyes: Reports no additional eye complaints ENT: Reports system reviewed and no additional complaints, except as documented Cardiovascular: Cardiovascular: Reports no additional cardiovascular complaints Respiratory: Respiratory: Reports no additional respiratory complaints Gastrointestinal: Gastrointestinal: Reports no additional gastrointestinal complaints Genitourinary: Genitourinary: Reports no additional female genitourinary complaints Musculoskeletal: Musculoskeletal: Reports no additional musculoskeletal complaints Integumentary/Breasts: Skin/Breast: Reports system reviewed and no additional complaints, except as docu Neurologic: Reports system reviewed and no additional complaints, except as documented Psychiatric: Psychiatric: Reports no additional psychiatric complaints Endocrine: Endocrine: Reports no additional endocrine complaints Hematologic/Lymphatic: Hematologic/Lymphatic: Reports no additional hematologic/lymphatic complaints Allergic/Immunologic: Allergic/Immunologic: Reports no additional allergic/immunologic complaints PMFSH Past Medical History Medical History Abnormal CXR Abnormal EKG BMI greater than 40 Candidiasis, urogenital Elevated random blood glucose level Essential (primary) hypertension Left knee DJD Mixed hyperlipidemia Mucositis oral Right knee DJD Surgical History Surgical History History of cataract surgery Family History Family History Grandparent Diabetes mellitus Mother Cerebrovascular accident Social History Social History Social History: Smoking status: Former smoker Second hand tobacco smoke exposure: No Smoking end date: 09/11/78 Alcohol intake: never Alcohol use details: pt drinks socially Substance use: never Substance use type: does not use Do You Feel Safe in your Home?: Yes Lack of Transportation: No Lack of Food: Never True Current Housing: I Have Housing Concerned About Future Housing: No Difficulty Paying Gas/Electric Bills: No Difficulty Paying for Meds: No Currently Unemployed: YES Education: Decline to Answer Difficulty w/ Childcare or Family Care: No Living arrangements: with family Occupation/Education: retired Gender identity (if verbalized by the patient): Female Sexual Orientation (if Verbalized by the Patient): Straight or Heterosexual Exam Const: General: healthy appearing Nutritional Appearance: well nourished Orientation/consciousness: patient oriented x3 HENMT: Head: normal to inspection Ears: external ears normal Face/Nose/Sinus: Normal external nose present Eyes: Conjunctivae: conjunctivae normal Pupils: Equal, round and reactive pupils present EOM: EOMs intact bilaterally Neck: Neck: normal visual inspection Chest: Chest palpation & inspection: normal inspection of the chest Resp: Effort & Inspection: normal respiratory effort and not labored Auscultation: clear to auscultation bilaterally Cardio: Rate: regular rate Rhythm: regular rhythm Heart sounds: no murmurs GI: Inspection: non-distended GI Palp: Yes Soft to palpation, Yes Tenderness to palpation present (GI) ( left lower quadrant), No Guarding due to palpation present (GI), No Rigid due to palpation, No Hernia present, No Palpa ble mass present and No Rebound tenderness present Auscultation: normal bowel sounds : General: Yes bladder normal to palpation Back/Spine/Pelvis: Back: no CVA tenderness Skin: General skin exam: normal color Rashes: no rashes Wounds: no wounds Neuro: General: patient oriented x3 Cranial nerves: Yes Nystagmus not present Speech: normal speech Extrem: General: normal to inspection Psych: Mental Status: mental status grossly normal Affect: normal affect Attitude: cooperative Course Vital Signs Vital signs: Vital Signs Oxygen Delivery Room Air 08/13/24 16:24 Temperature 36.5 C 08/13/24 16:25 Pulse Rate 80 08/13/24 16:25 Respiratory Rate 18 08/13/24 16:25 Blood Pressure 133/71 08/14/24 00:01 Pulse Oximetry 94 08/14/24 00:01 Oxygen Delivery Nasal Cannula 08/13/24 21:53 Oxygen Flow Rate 2 08/14/24 00:01 MDM - Abdominal Pain MDM Narrative Medical decision making narrative: patient is a 69-year-old female with abdominal pain. Patient has history of diverticulitis. We will go ahead and do abdominal pain workup at this time. Patient has multiple thrombus / DVT on CT scan with contrast. Patient knows about her DVT issue and she is on Xarelto. There is colitis in the left lower quadrant. All in all, there is an IVC thrombus and I discussed this with vascular surgery at [facility] and I explained that there is a possible mass in the sigmoid area and the vascular surgeon feels this is a likely connection at this time. Patient took Xarelto today so therefore we cannot use a heparin drip at this time. We do not have Xarelto reversal medicine. Further, the colitis will be treated with the Zosyn at this time and further treated with the hospitalist. She has required some oxygen therapy due to some hypoxemia which is unclear at this time but possibly from pain medication. Also the possibility of sleep apnea. Lab Data Attestation: I reviewed the patient's lab results. 08/13/24 17:00 08/13/24 17:00 Labs: Lab Results 08/13/24 08/13/24 Range/Units 17:00 18:11 WBC 12.7 H (4.8-10.8) K/mm3 RBC 4.35 (4.20-5.40) M/mm3 Hgb 12.7 (11.7-13.8) g/dL Hct 39.5 (35.0-42.0) % MCV 90.8 (78.0-102.0) fL MCH 29.2 (27.0-31.0) pg MCHC 32.2 (32-36) g/dL RDW 13.5 (11.6-14.4) % Plt Count 408 (150-420) K/mm3 MPV 9.1 L (9.2-11.8) fl Immature Gran % (Auto) 0.3 H (0.0-0.0) % Neut % (Auto) 78.9 H (50.0-70.0) % Lymph % (Auto) 14.7 L (18.0-42.0) % [place] % (Auto) 5.2 (2.0-11.0) % Eos % (Auto) 0.4 L (1.0-6.0) % Baso % (Auto) 0.5 (0.0-1.0) % Lymph # (Auto) 1.87 (1.10-4.50) K/mm3 [place] # (Auto) 0.66 (0.10-0.90) K/mm3 Eos # (Auto) 0.05 (0.02-0.50) K/mm3 Baso # (Auto) 0.06 (0.00-0.10) K/mm3 Abs Immat Gran (auto) 0.04 H (0.00-0.00) K/mm3 Absolute Neuts (auto) 10.00 H (1.70-7.20) K/mm3 Absolute Nucleated RBC 0.00 (0.00-0.00) K/mm3 Nucleated RBC % 0.0 (0-0.0) % Sodium 135 L (136-145) mmol/L Potassium 3.9 (3.5-5.1) mmol/L Chloride 100 (98-108) mmol/L Carbon Dioxide 29 (21-32) mmol/L Anion Gap 6 (4-12) mmol/L BUN 12 (7-18) mg/dL Creatinine 0.96 (0.55-1.02) mg/dL Estim Creat Clear Calc 64 ml/min Estimated GFR 57 L (59 - ) Glucose 109 H (70-99) mg/dL Calculated Osmolality 280 L (285-295) mOsm/kg Lactic Acid 0.7 (0.4-2.0) mmol/L Calcium 9.6 (8.5-10.1) mg/dL Total Bilirubin 0.8 (0.00-1.00) mg/dL AST 12 L (15-37) U/L ALT 24 (14-59) U/L Alkaline Phosphatase 108 (46-116) U/L Total Protein 7.6 (6.4-8.2) g/dL Albumin 3.4 (3.4-5.0) g/dL Lipase 19 (16-77) U/L Urine Color Yellow (Yellow) Urine Appearance Sl cloudy A (Clear) Urine pH 6.0 (5.0-8.0) Ur Specific [place] 1.010 (1.010-1.020) Urine Protein Negative (Negative) Urine Glucose (UA) Negative (Negative) Urine Ketones Negative (Negative) Ur Blood (Man) Trace-intact H (Negative) Urine Nitrate Negative (Negative) Urine Bilirubin Negative (Negative) Urine Urobilinogen 0.2 (0.2-1.0) mg/dL Leukocyte Esterase Rfl Negative (Negative) LESLY/UL Urine RBC 0-2 (0-2) /hpf Urine WBC 0-3 (0-3) /hpf Ur Squamous Epith Cells Moderate H (Few) /hpf Urine Bacteria Trace (None) /hpf Imaging Data Attestation: I personally reviewed and interpreted this imaging study as follows: Radiologist's impression: ITS Impressions Abdomen/Pelvis CT 08/13/24 19:58 IMPRESSION: 1. Thrombosis seen in the IVC, left iliac vein and left femoral vein suggestive of DVT. The proximal thrombus is opposite the right renal vein. 2. Thickened wall of the sigmoid colon suggestive of a mass versus colitis. Sigmoidoscopy is advised. Proximal dilatation of the colon is noted. 3. Left kidney stone.. 4. Highly difficult to the aorta suggestive cardiomegaly radiology sliding hiatus hernia. Physician: Jeff Burt MD Was notified with the result of the patient at 8:22 PM on September 09, 2024. Discharge Plan Discharge Clinical Impression: Colitis, Thrombus DVT (deep venous thrombosis) Qualifiers: DVT location: non-extremity vein Chronicity: acute Qualified Code(s): I82.90 - Acute embolism and thrombosis of unspecified vein Patient Disposition: Acute Care Hospital Condition: Serious Prescriptions: No Action metoprolol tartrate 25 mg tablet 25 mg PO BID Qty: 180 3RF alendronate 70 mg tablet 70 mg PO WEEKLY Qty: 14 3RF nystatin 100,000 unit/gram cream 1 applic topical BID Qty: 30 0RF metoclopramide HCl 5 mg tablet 5 mg PO TID Qty: 90 2RF Xarelto DVT-PE Treat 30d Start 15 mg (42)- 20 mg (9) tablets,dose pack See Rx Instructions PO .COMPLEX Patient Comments: Sample given to patient today Rx Instructions: take one-15 mg tablet twice daily for 21 days, then one-20 mg tablet once daily; must take with meal/food PO Xarelto 20 mg tablet 20 mg PO DAILY Qty: 90 0RF Rx Instructions: must administer with evening meal omeprazole 20 mg capsule,delayed release(DR/EC) 20 mg PO DAILY Qty: 90 3RF furosemide 20 mg tablet 20 mg PO BID Qty: 90 0RF ezetimibe-simvastatin [Vytorin 10-20] 10-20 mg tablet 1 tablet PO DAILY Qty: 90 4RF Follow-up/Referrals: Maureen Roman MD [Primary Care Provider] - Time of Disposition: 20:28
[2024-08-13] MEDS: MORPHINE SULFATE (*CRX) 2 MG/ML INJ IV PUSH (17:17)
[2024-08-13 17:21] LABS: Basophils Absolute Auto 0.06 K/mm3 (0.00-0.10); Basophils Percent Auto 0.5 % (0.0-1.0); Eosinophils Absolute Auto 0.05 K/mm3 (0.02-0.50); Eosinophils Percent Auto 0.4 % (1.0-6.0); Hematocrit 39.5 % (35.0-42.0); Hemoglobin 12.7 g/dL (11.7-13.8); Immature Granulocyte Absolute 0.04 K/mm3 (0.00-0.00); Immature Granulocyte Percent A 0.3 % (0.0-0.0); Lymphocytes Absolute Auto 1.87 K/mm3 (1.10-4.50); Lymphocytes Percent Auto 14.7 % (18.0-42.0); Mean Corpuscular HGB Conc 32.2 g/dL (32-36); Mean Corpuscular Hemoglobin 29.2 pg (27.0-31.0); Mean Corpuscular Volume 90.8 fL (78.0-102.0); Mean Platelet Volume 9.1 fl (9.2-11.8); Monocytes Absolute Auto 0.66 K/mm3 (0.10-0.90); Monocytes Percent Auto 5.2 % (2.0-11.0); Neutrophils Percent Auto 78.9 % (50.0-70.0); Platelet Count Result 408 K/mm3 (150-420); Red Blood Count 4.35 M/mm3 (4.20-5.40); Red Cell Distribution Width 13.5 % (11.6-14.4); White Blood Count 12.7 K/mm3 (4.8-10.8)
[2024-08-13 17:40] LABS: Alanine Aminotransferase 24 U/L (14-59); Albumin Level 3.4 g/dL (3.4-5.0); Alkaline Phosphatase 108 U/L (46-116); Anion Gap 6 mmol/L (4-12); Aspartate Amino Transferase 12 U/L (15-37); Bilirubin,Total 0.8 mg/dL (0.00-1.00); Blood Urea Nitrogen 12 mg/dL (7-18); Calcium 9.6 mg/dL (8.5-10.1); Carbon Dioxide 29 mmol/L (21-32); Chloride 100 mmol/L (98-108); Estimated CRCL calculation 64 ml/min; Estimated Glomerular Filt Rate 57; Glucose 109 mg/dL (70-99); Lipase 19 U/L (16-77); Osmolality Calculated 280 mOsm/kg (285-295); Potassium 3.9 mmol/L (3.5-5.1); Sodium 135 mmol/L (136-145); Total Protein 7.6 g/dL (6.4-8.2)
[2024-08-13 17:49] LABS: Lactic Acid Reflex 0.7 mmol/L (0.4-2.0)
[2024-08-13 18:13] LABS: Add Urine Microscopic? YES; Appearance Urine Sl Cloudy (Clear); Bilirubin Urine Negative (Negative); Blood Urine Trace-intact (Negative); Color Urine Yellow (Yellow); Glucose Urine UA Negative (Negative); Ketones Urine Negative (Negative); Leukocyte Esterase Ur Negative LEU/UL (Negative); Nitrate Urine Negative (Negative); Protein Urine Negative (Negative); Urobilinogen Urine 0.2 mg/dL (0.2-1.0)
[2024-08-13 18:17] LABS: Bacteria Urine Trace /hpf; RBC Urine 0-2 /hpf (0-2); Squamous Epithelial Cell Urine Moderate /hpf (Few); WBC Urine 0-3 /hpf (0-3)
--- NOTE | 2024-08-13 18:35 | PC.NURSE ---
pt returns from CT, ua was collected. pt reports pain comes and goes like spams . pt is awaiting results at this time. at bedside. will continue to monitor.
[2024-08-13] MEDS: ONDANSETRON INJ 4 MG/2 ML VIAL IV PUSH ×2 (20:43→22:38)
[2024-08-13] MEDS: MORPHINE SULFATE (*CRX) 4 MG/ML INJ IV PUSH (20:44)
[2024-08-13] MEDS: HYDROmorphone HCL INJ (*CRX) 2 MG/ML VIAL 0.5 MG IV PUSH (22:09)
[2024-08-13] MEDS: PIPERACILLN/TAZ 3.375GM/NS50ML 3.375 GM/50 ML BAG IVPB (22:15)
[2024-08-14] VITALS (8 sets, daily range): BP systolic 126–140; BP diastolic 64–71; PULSE 95; RESP 18; O2SAT 94–98
--- NOTE | 2024-08-14 02:19 | PC.NURSE ---
Addendum entered by Tila Veelz RN 08/14/24 02:35: EMS called and said that they will be here in 45 mins. Original Note: EMS called and said that they will be
[2024-08-14] MEDS: ONDANSETRON INJ 4 MG/2 ML VIAL IV PUSH (03:14)
[2024-08-14] MEDS: HYDROmorphone HCL INJ (*CRX) 2 MG/ML VIAL 0.5 MG IV PUSH (03:15)
--- NOTE | 2024-08-14 03:30 | PC.NURSE ---
Called Jaxson Davis'moshe to let her know that pt is on her way.
--- NOTE | 2024-08-15 13:22 | PC.NURSE ---
preliminary blood cuture, no growth noted
== END 2024-08-14 03:32 | disposition short-term general hospital (02) ==
PROVIDERS: Emergency Provider Emergency Medicine; PCP Family Medicine
DX: K52.9 Noninfective gastroenteritis and colitis, unspecified (principal); I82.90 Acute embolism and thrombosis of unspecified vein; I10 Essential (primary) hypertension; E78.2 Mixed hyperlipidemia; Z87.891 Personal history of nicotine dependence; Z79.01 Long term (current) use of anticoagulants
CPT/HCPCS: 36415; 74177; 80053; 81001; 83605; 83690; 85025; 87040; 96365; 96375; 96376; 99284; J1171; J2270; J2405; J2543; Q9967

== ENCOUNTER 2024-08-19 17:38 | Emergency (ER) | payer MEDICARE, OTHER, SELFPAY ==
[2024-08-19] VITALS (40 sets, daily range): BP systolic 116–145; BP diastolic 45–99; PULSE 95–97; RESP 18; TEMP 36.1–36.9; O2SAT 86–99
--- NOTE | ~2024-08-19 | CT_ITS ---
EXAMINATION: CT abdomen pelvis w con DATE: 08/19/2024 18:50 INDICATION: VOMITING/RECENT SIGMOIDOSCOPY AND CLOT TO LEFT IVC TECHNIQUE: Computed tomography (CT) of the abdomen and pelvis was performed with 100 mL Omnipaque-350 intravenous contrast. Automated exposure control and iterative reconstruction technique were employe d. The dose-length product was 1403.06 mGy-cm. COMPARISON: 08/13/2024. FINDINGS: Lower thorax: Unremarkable Liver: Normal. Biliary/Gallbladder: Gallbladder is normal. No bile duct dilation. Pancreas: Mild fatty atrophy. Spleen: Normal. Adrenals:No mass. Kidneys: No suspicious mass, obstructing stone, or hydronephrosis. 3 mm left lower pole nonobstructin g calcification. GI tract: Large hiatal hernia. No small or large bowel dilation. Normal appendix. Diverticulosis with out diverticulitis. Mild cecal, ascending, and transverse colonic dilation. Borderline dilation of th e descending colon, transition point in a moderate length segment of sigmoid bowel wall thickening as previously described. Mesentery/Peritoneum: No mass or free air. Small focus of free fluid in the right lower quadrant tram cent to the cecum and appendix. Fluid-filled colon.. Retroperitoneum: No mass. Persistent thrombus in the IVC extending from the level of the right renal vein to the left iliac vein and left femoral vein. Pelvis: Partially distended urinary bladder shifted slightly to the left, with inflammatory change ne ar the dome, with thin strand-like connections to a 2.6 cm rim-enhancing gas and fluid collection (ax ial image 140). Thin connections extend to adjacent small bowel and sigmoid. Soft Tissues: Soft tissues and body wall unremarkable. Bones: No acute osseous finding. IMPRESSION: Persistent sigmoid wall thickening and mild proximal sigmoid distention. Fluid-filled colon, may be secondary to diarrhea illness or bowel prep, depending on the timing of th e reported recent sigmoidoscopy. Focal free fluid in the right lower quadrant, presumably reactive, no definite pneumoperitoneum. 2.6 cm pelvic abscess, with strand-like connections to the adjacent urinary bladder, a loop of small bowel, and the adjacent sigmoid. This may represent an enterovesicular fistula. Correlate with urinal ysis. Persistent left femoral, iliac vein, and IVC thrombus. Reviewed, dictated and finalized at location K. ING ALLEY MECHANIC IMPRESSION: Persistent sigmoid wall thickening and mild proximal sigmoid distention. Fluid-filled colon, may be secondary to diarrhea illness or bowel prep, dependi ng on the timing of the reported recent sigmoidoscopy. Focal free fluid in the right lower quadrant, presumably reactive, no definite pneumoperitoneum. 2.6 cm pelvic abscess, with strand-like connections to the adjacent urinary jessica dder, a loop of small bowel, and the adjacent sigmoid. This may represent an en terovesicular fistula. Correlate with urinalysis. Persistent left femoral, iliac vein, and IVC thrombus.
--- NOTE | 2024-08-19 17:40 | ED_ITS ---
HPI - Nausea/Vomiting/Diarrhea General Chief complaint: Nausea/Vomiting/Diarrhea <Tien Lester MD - Last Filed: 08/21/24 07:06> Stated complaint: VOMITING, DIARRHEA <Tien Lester MD - Last Filed: 08/21/24 07:06> Time Seen by Provider: 08/19/24 17:40 <Tien Lester MD - Last Filed: 08/21/24 07:06> Source: patient <Tien Lester MD - Last Filed: 08/21/24 07:06> Mode of arrival: ambulatory <Tien Lester MD - Last Filed: 08/21/24 07:06> Limitations: no limitations <Tien Lester MD - Last Filed: 08/21/24 07:06> History of Present Illness HPI Narrative: 69 YEARS OLD WHITE FEMALE CAME TO THE ED BY PRIVATE CAR WITH HER DAUGHTER COMPLAINING OF WAKING UP THIS MORNING WITH NAUSEA, 1 HOUR PRIOR TO ARRIVAL TO THE EMERGENCY ROOM STARTED HAVING LOOSE BOWEL MOVEMENT X2, AND VOMITED 2-3 TIMES WHILE SITTING IN THE CAR. CURRENTLY PATIENT MAIN COMPLAINT IS GENERAL WEAKNESS AND TIREDNESS. PATIENT WAS DISCHARGED FROM [facility] 2 DAYS AGO WITH A DIAGNOSIS OF DEEP VEIN THROMBOSIS, AND COLITIS STARTED ON LOVENOX 120 MG TWICE A DAY, DID NOT TAKE HER 8:00 P.M. DOES YET. AND ANTIBIOTICS, SHE DENIES CHEST PAIN, SHORTNESS OF BREATH, RUNNY NOSE, SORE THROAT, CHEST PAIN, BACK PAIN, SHORTNESS OF BREATH OR ABDOMINAL PAIN. SHE IS TELLING ME THAT SHE HAVE POSSIBLE CLOT OR TUMOR IN THE COLON AND SCHEDULE FOR SURGERY SEPTEMBER 2024. I DO NOT HAVE OLD BLOOD WORKUP OR OLD CT SCAN TO FIND OUT WHAT IS AGO UNKNOWN. <Tien Lester MD - Last Filed: 08/21/24 07:06> Related Data Home medications: Home Medications ?Medication ?Instructions ?Recorded ?Confirmed ?Last Taken ?Type rivaroxaban 15 mg (42)-20 mg (9) See Rx Instructions PO .COMPLEX 07/15/24 08/19/24 Unknown History tablets in a starter pack (Xarelto DVT-PE Treatment 30-Day Starter) <Tien Lester MD - Last Filed: 08/21/24 07:06> Allergies/Adverse reactions: Allergies Allergy/AdvReac Type Severity Reaction Status Date / Time hydrocodone Allergy Mild Vomitting Verified 08/13/24 23:15 oxycodone Allergy Unknown nausea Verified 08/13/24 23:15 <Tien Lester MD - Last Filed: 08/21/24 07:06> Review of Systems 2 Review of Systems: All systems reviewed & are unremarkable except as noted in HPI and below <Tien Lester MD - Last Filed: 08/21/24 07:06> [facility] Past Medical History Medical History: Medical History Abnormal CXR Abnormal EKG BMI greater than 40 Candidiasis, urogenital Elevated random blood glucose level Essential (primary) hypertension Left knee DJD Mixed hyperlipidemia Mucositis oral Right knee DJD <Tien Lester MD - Last Filed: 08/21/24 07:06> Surgical History Surgical History: Surgical History History of cataract surgery <Tien Lester MD - Last Filed: 08/21/24 07:06> Family History Family History: Family History Grandparent Diabetes mellitus Mother Cerebrovascular accident <Tien Lester MD - Last Filed: 08/21/24 07:06> Social History Social History: Social History Social History: Smoking status: Former smoker Second hand tobacco smoke exposure: No Smoking end date: 09/11/78 Alcohol intake: never Alcohol use details: pt drinks socially Substance use: never Substance use type: does not use Do You Feel Safe in your Home?: Yes Lack of Transportation: No Lack of Food: Never True Current Housing: I Have Housing Concerned About Future Housing: No Difficulty Paying Gas/Electric Bills: No Difficulty Paying for Meds: No Currently Unemployed: YES Education: Decline to Answer Difficulty w/ Childcare or Family Care: No Living arrangements: with family Occupation/Education: retired Gender identity (if verbalized by the patient): Female Sexual Orientation (if Verbalized by the Patient): Straight or Heterosexual <Tien Lester MD - Last Filed: 08/21/24 07:06> Exam 2 Narrative: GENERAL APPEARANCE: WELL-DEVELOPED, WELL-NOURISHED SKIN: PALE HEAD: NORMOCEPHALIC, NONTRAUMATIC EYES: CLEAR CONJUNCTIVA NECK: SUPPLE, NONTENDER CHEST AND RESPIRATORY: AIRWAY PATENT, NO RESPIRATORY DISTRESS, NO ACCESSORY MUSCLE USE HEART: REGULAR RATE/RHYTHM ABDOMEN: SOFT, NONTENDER, NO ORGANOMEGALY, QUIET BOWEL SOUNDS VASCULAR: NORMAL PERIPHERAL PULSES, NORMAL CAPILLARY REFILL. MUSCULOSKELETAL: NORMAL RANGE OF MOTION, NONTENDER BACK NEUROLOGIC: ALERT AND ORIENTED ?3, TELESALES REPRESENTATIVE IS NORMAL TESTED, NO GROSS MOTOR DEFICIT <Tien Lester MD - Last Filed: 08/21/24 07:06> Course Course Emergency Course: 08/20/24 (0700) I received report and assumed care of this patient at shift change. Patient is 69 y/o female who presented to the ED stating she awoke yesterday with nausea. 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 She c/o generalized weakness and being tired. She was discharged from [facility] 2 days ago. She was dx DVT and colitis. Patient reported some type of tumor or clot to colon and she is scheduled for surgery Sep 2024. CBC: H/H 12.7/39.5, Plt 422; wbc 13.9 with 73 S, 19 L, 10 M CMP: Na 134, K 3.6, Cl 96, CO2 25, Glc 133, BUN 9, Cr 1.13; LFT's AST 71, ALT 73 Lipase: 24 UA: trace ketones Covid/ Influenza/ RSV: negative CT Abd/Pelvis: persistent sigmoid wall thickening and mild prox sigmoid distension. Fluid filled colon. Focal free fluid RLQ. 2.6 cm pelvic abscess with strand like connections to the adjacent bladder, loop of small bowel and adjacent sigmoid - ? fistula. Tx: MS 4 mg, Reglan 10 mg IVP, IVF, Dilaudid 0.5 mg IVP x 2, Zofran 4 mg and 8 mg IVP, Lovenox 120 mg SQ, Zosyn 3.375 gm IVPB. Patient has been accepted for transfer to [facility] and [facility] and is awaiting bed assignment at shift change time. 08/20/24 (0800) Tx: Zosyn 3.375 gm IVPB, Lovenox 120 mg SQ (0940) Report given to [facility] Transfer. Will contact MD and call back. Most likely bed wait. (1000) Report given to [facility] Transfer. Will contact MD and call back. (1017) Discussed with Dr. Noe ([facility] - surgery). Report given. Agrees will all current management. Not time critical transfer. Patient placed on wait list, however recommends return to previous facility ([facility]). (1050) Discussed with Dr. Carmona ([facility] - Surgery). Report given. Will accept patient for transfer. Awaiting bed assignment. (1055) Discussed with Dr. Mesa ([facility] - Hospitalist). Report given. Will accept patient for transfer if surgery agreeable. (1108) Discussed with Dr. Thompson ([facility]). Report given. Recommends patient go to higher level of care facility. (1308) Bed assigned at [facility]. Accepting physician Dr. Blue. <Ben Goins MD - Last Filed: 08/20/24 13:38> Vital Signs Vital signs: Vital Signs Temperature 36.4 C L 08/19/24 17:38 Pulse Rate 97 08/19/24 17:38 Respiratory Rate 18 08/19/24 17:38 Blood Pressure 136/76 08/19/24 17:38 Pulse Oximetry 97 08/19/24 17:38 Oxygen Delivery Room Air 08/19/24 17:38 Temperature 36.8 C 08/20/24 13:53 Pulse Rate 66 08/20/24 13:53 Respiratory Rate 16 08/20/24 13:53 Blood Pressure 132/67 08/20/24 13:53 Pulse Oximetry 98 08/20/24 13:53 Oxygen Delivery Room Air 08/20/24 13:53 Oxygen Flow Rate 2 08/20/24 02:38 Fraction of Inspired Oxygen 96 08/19/24 19:33 <Tien Lester MD - Last Filed: 08/21/24 07:06> Vital Signs Temperature 36.4 C L 08/19/24 17:38 Pulse Rate 97 08/19/24 17:38 Respiratory Rate 18 08/19/24 17:38 Blood Pressure 136/76 08/19/24 17:38 Pulse Oximetry 97 08/19/24 17:38 Oxygen Delivery Room Air 08/19/24 17:38 Temperature 36.8 C 08/20/24 13:53 Pulse Rate 66 08/20/24 13:53 Respiratory Rate 16 08/20/24 13:53 Blood Pressure 132/67 08/20/24 13:53 Pulse Oximetry 98 08/20/24 13:53 Oxygen Delivery Room Air 08/20/24 13:53 Oxygen Flow Rate 2 08/20/24 02:38 Fraction of Inspired Oxygen 96 08/19/24 19:33 <Ben Goins MD - Last Filed: 08/20/24 13:38> Transfer Transfered to: [facility] <Ben Goins MD - Last Filed: 08/20/24 13:38> Transportation: ALS <Ben Goins MD - Last Filed: 08/20/24 13:38> Transfer rationale: Higher level of care <Ben Goins MD - Last Filed: 08/20/24 13:38> Accepting physician: Dr. Blue <Ben Goins MD - Last Filed: 08/20/24 13:38> MDM - Nausea/Vomiting/Diarrhea Lab Data Result diagrams: 08/19/24 18:03 08/19/24 18:03 <Tien Lester MD - Last Filed: 08/21/24 07:06> Labs: Lab Results 08/19/24 08/19/24 Range/Units 18:03 21:00 WBC 13.9 H (4.8-10.8) K/mm3 RBC 4.40 (4.20-5.40) M/mm3 Hgb 12.7 (11.7-13.8) g/dL Hct 39.5 (35.0-42.0) % MCV 89.8 (78.0-102.0) fL MCH 28.9 (27.0-31.0) pg MCHC 32.2 (32-36) g/dL RDW 13.6 (11.6-14.4) % Plt Count 422 H (150-420) K/mm3 MPV 8.8 L (9.2-11.8) fl Immature Gran % (Auto) 0.9 H (0.0-0.0) % Neut % (Auto) 72.9 H (50.0-70.0) % Lymph % (Auto) 19.2 (18.0-42.0) % Ballard % (Auto) 6.3 (2.0-11.0) % Eos % (Auto) 0.3 L (1.0-6.0) % Baso % (Auto) 0.4 (0.0-1.0) % Lymph # (Auto) 2.68 (1.10-4.50) K/mm3 Ballard # (Auto) 0.88 (0.10-0.90) K/mm3 Eos # (Auto) 0.04 (0.02-0.50) K/mm3 Baso # (Auto) 0.05 (0.00-0.10) K/mm3 Abs Immat Gran (auto) 0.13 H (0.00-0.00) K/mm3 Absolute Neuts (auto) 10.15 H (1.70-7.20) K/mm3 Absolute Nucleated RBC 0.00 (0.00-0.00) K/mm3 Nucleated RBC % 0.0 (0-0.0) % Sodium 134 L (136-145) mmol/L Potassium 3.6 (3.5-5.1) mmol/L Chloride 96 L (98-108) mmol/L Carbon Dioxide 25 (21-32) mmol/L Anion Gap 13 H (4-12) mmol/L BUN 9 (7-18) mg/dL Creatinine 1.13 H (0.55-1.02) mg/dL Estim Creat Clear Calc 55 ml/min Estimated GFR 48 L (59 - ) Glucose 133 H (70-99) mg/dL Calculated Osmolality 278 L (285-295) mOsm/kg Calcium 10.3 H (8.5-10.1) mg/dL Total Bilirubin 0.8 (0.00-1.00) mg/dL AST 71 H (15-37) U/L ALT 73 H (14-59) U/L Alkaline Phosphatase 107 (46-116) U/L Total Protein 7.8 (6.4-8.2) g/dL Albumin 3.7 (3.4-5.0) g/dL Lipase 24 (16-77) U/L Urine Color Light yellow (Yellow) Urine Appearance Clear (Clear) Urine pH 7.0 (5.0-8.0) Ur Specific [place]re <= 1.005 L (1.010-1.020) Urine Protein Negative (Negative) Urine Glucose (UA) Negative (Negative) Urine Ketones Trace H (Negative) Ur Blood (Man) Negative (Negative) Urine Nitrate Negative (Negative) Urine Bilirubin Negative (Negative) Urine Urobilinogen 1.0 (0.2-1.0) mg/dL Leukocyte Esterase Rfl Negative (Negative) LESLY/UL Influenza A (RT-PCR) Negative (Negative) Influenza B (RT-PCR) Negative (Negative) RSV (RT-PCR) Negative (Negative) SARS-CoV-2 RNA (RT-PCR) Negative (Negative) <Tien Lester MD - Last Filed: 08/21/24 07:06> Lab Results 08/19/24 08/19/24 Range/Units 18:03 21:00 WBC 13.9 H (4.8-10.8) K/mm3 RBC 4.40 (4.20-5.40) M/mm3 Hgb 12.7 (11.7-13.8) g/dL Hct 39.5 (35.0-42.0) % MCV 89.8 (78.0-102.0) fL MCH 28.9 (27.0-31.0) pg MCHC 32.2 (32-36) g/dL RDW 13.6 (11.6-14.4) % Plt Count 422 H (150-420) K/mm3 MPV 8.8 L (9.2-11.8) fl Immature Gran % (Auto) 0.9 H (0.0-0.0) % Neut % (Auto) 72.9 H (50.0-70.0) % Lymph % (Auto) 19.2 (18.0-42.0) % Ballard % (Auto) 6.3 (2.0-11.0) % Eos % (Auto) 0.3 L (1.0-6.0) % Baso % (Auto) 0.4 (0.0-1.0) % Lymph # (Auto) 2.68 (1.10-4.50) K/mm3 Ballard # (Auto) 0.88 (0.10-0.90) K/mm3 Eos # (Auto) 0.04 (0.02-0.50) K/mm3 Baso # (Auto) 0.05 (0.00-0.10) K/mm3 Abs Immat Gran (auto) 0.13 H (0.00-0.00) K/mm3 Absolute Neuts (auto) 10.15 H (1.70-7.20) K/mm3 Absolute Nucleated RBC 0.00 (0.00-0.00) K/mm3 Nucleated RBC % 0.0 (0-0.0) % Sodium 134 L (136-145) mmol/L Potassium 3.6 (3.5-5.1) mmol/L Chloride 96 L (98-108) mmol/L Carbon Dioxide 25 (21-32) mmol/L Anion Gap 13 H (4-12) mmol/L BUN 9 (7-18) mg/dL Creatinine 1.13 H (0.55-1.02) mg/dL Estim Creat Clear Calc 55 ml/min Estimated GFR 48 L (59 - ) Glucose 133 H (70-99) mg/dL Calculated Osmolality 278 L (285-295) mOsm/kg Calcium 10.3 H (8.5-10.1) mg/dL Total Bilirubin 0.8 (0.00-1.00) mg/dL AST 71 H (15-37) U/L ALT 73 H (14-59) U/L Alkaline Phosphatase 107 (46-116) U/L Total Protein 7.8 (6.4-8.2) g/dL Albumin 3.7 (3.4-5.0) g/dL Lipase 24 (16-77) U/L Urine Color Light yellow (Yellow) Urine Appearance Clear (Clear) Urine pH 7.0 (5.0-8.0) Ur Specific [place] <= 1.005 L (1.010-1.020) Urine Protein Negative (Negative) Urine Glucose (UA) Negative (Negative) Urine Ketones Trace H (Negative) Ur Blood (Man) Negative (Negative) Urine Nitrate Negative (Negative) Urine Bilirubin Negative (Negative) Urine Urobilinogen 1.0 (0.2-1.0) mg/dL Leukocyte Esterase Rfl Negative (Negative) LESLY/UL Influenza A (RT-PCR) Negative (Negative) Influenza B (RT-PCR) Negative (Negative) RSV (RT-PCR) Negative (Negative) SARS-CoV-2 RNA (RT-PCR) Negative (Negative) <Ben E. Briseida, MD - Last Filed: 08/20/24 13:38> Imaging Data Radiologist's impression: Impressions Abdomen/Pelvis CT 08/19/24 19:01 IMPRESSION: Persistent sigmoid wall thickening and mild proximal sigmoid distention. Fluid-filled colon, may be secondary to diarrhea illness or bowel prep, depending on the timing of the reported recent sigmoidoscopy. Focal free fluid in the right lower quadrant, presumably reactive, no definite pneumoperitoneum. 2.6 cm pelvic abscess, with strand-like connections to the adjacent urinary bladder, a loop of small bowel, and the adjacent sigmoid. This may represent an enterovesicular fistula. Correlate with urinalysis. Persistent left femoral, iliac vein, and IVC thrombus. <Tien Lester MD - Last Filed: 08/21/24 07:06> Critical Care Time Critical Care Time Critical Care Time: Yes <Tien Lester MD - Last Filed: 08/21/24 07:06> Total Critical Care Time: 30 <Tien Lester MD - Last Filed: 08/21/24 07:06> Discharge Plan Discharge Clinical Impression: Gastroenteritis, SUHAIL (acute kidney injury), Abscess of female pelvis <Tien Lester MD - Last Filed: 08/21/24 07:06> Patient Disposition: Acute Care Hospital [facility] <Tien Lester MD - Last Filed: 08/21/24 07:06> Condition: Guarded Prognosis <Tien Lester MD - Last Filed: 08/21/24 07:06> Patient Language: Congolese <Tien Lester MD - Last Filed: 08/21/24 07:06> Prescriptions: No Action metoprolol tartrate 25 mg tablet 25 mg PO BID Qty: 180 3RF alendronate 70 mg tablet 70 mg PO WEEKLY Qty: 14 3RF nystatin 100,000 unit/gram cream 1 applic topical BID Qty: 30 0RF metoclopramide HCl 5 mg tablet 5 mg PO TID Qty: 90 2RF Xarelto DVT-PE Treat 30d Start 15 mg (42)- 20 mg (9) tablets,dose pack See Rx Instructions PO .COMPLEX Patient Comments: Sample given to patient today Rx Instructions: take one-15 mg tablet twice daily for 21 days, then one-20 mg tablet once daily; must take with meal/food PO Xarelto 20 mg tablet 20 mg PO DAILY Qty: 90 0RF Rx Instructions: must administer with evening meal omeprazole 20 mg capsule,delayed release(DR/EC) 20 mg PO DAILY Qty: 90 3RF furosemide 20 mg tablet 20 mg PO BID Qty: 90 0RF ezetimibe 10 mg tablet 10 mg PO DAILY Qty: 90 4RF simvastatin 20 mg tablet 20 mg PO DAILY Qty: 90 4RF <Tien Lester MD - Last Filed: 08/21/24 07:06> Follow-up/Referrals: Maureen Roman MD [Primary Care Provider] - <Tien Lester MD - Last Filed: 08/21/24 07:06> Time of Disposition: 13:38 <Tien Lester MD - Last Filed: 08/21/24 07:06> 13:38 <Ben Goins MD - Last Filed: 08/20/24 13:38>
[2024-08-19 18:06] LABS: Basophils Absolute Auto 0.05 K/mm3 (0.00-0.10); Basophils Percent Auto 0.4 % (0.0-1.0); Eosinophils Absolute Auto 0.04 K/mm3 (0.02-0.50); Eosinophils Percent Auto 0.3 % (1.0-6.0); Hematocrit 39.5 % (35.0-42.0); Hemoglobin 12.7 g/dL (11.7-13.8); Immature Granulocyte Absolute 0.13 K/mm3 (0.00-0.00); Immature Granulocyte Percent A 0.9 % (0.0-0.0); Lymphocytes Absolute Auto 2.68 K/mm3 (1.10-4.50); Lymphocytes Percent Auto 19.2 % (18.0-42.0); Mean Corpuscular HGB Conc 32.2 g/dL (32-36); Mean Corpuscular Hemoglobin 28.9 pg (27.0-31.0); Mean Corpuscular Volume 89.8 fL (78.0-102.0); Mean Platelet Volume 8.8 fl (9.2-11.8); Monocytes Absolute Auto 0.88 K/mm3 (0.10-0.90); Monocytes Percent Auto 6.3 % (2.0-11.0); Neutrophils Absolute Auto 10.15 K/mm3 (1.70-7.20); Neutrophils Percent Auto 72.9 % (50.0-70.0); Platelet Count Result 422 K/mm3 (150-420); Red Cell Distribution Width 13.6 % (11.6-14.4); White Blood Count 13.9 K/mm3 (4.8-10.8)
[2024-08-19] MEDS: ENOXAPARIN 120 MG/0.8 ML SYRINGE SUB-Q (18:16)
[2024-08-19] MEDS: SODIUM CHLORIDE 0.9% IV 1,000 ML 999 ML IV CONT ×2 (18:16→19:40)
[2024-08-19] MEDS: ONDANSETRON INJ 4 MG/2 ML VIAL 8 MG IV PUSH (18:16)
[2024-08-19 18:22] LABS: Alanine Aminotransferase 73 U/L (14-59); Albumin Level 3.7 g/dL (3.4-5.0); Alkaline Phosphatase 107 U/L (46-116); Anion Gap 13 mmol/L (4-12); Aspartate Amino Transferase 71 U/L (15-37); Bilirubin,Total 0.8 mg/dL (0.00-1.00); Blood Urea Nitrogen 9 mg/dL (7-18); Calcium 10.3 mg/dL (8.5-10.1); Carbon Dioxide 25 mmol/L (21-32); Chloride 96 mmol/L (98-108); Estimated CRCL calculation 55 ml/min; Estimated Glomerular Filt Rate 48; Glucose 133 mg/dL (70-99); Lipase 24 U/L (16-77); Osmolality Calculated 278 mOsm/kg (285-295); Potassium 3.6 mmol/L (3.5-5.1); Sodium 134 mmol/L (136-145); Total Protein 7.8 g/dL (6.4-8.2)
[2024-08-19 18:45] LABS: SARS-CoV-2 RNA PCR Negative (Negative)
[2024-08-19 18:46] LABS: Influenza A QL RT-PCR Negative (Negative); Influenza B QL RT-PCR Negative (Negative); RSV RNA, RT-PCR Negative (Negative)
--- NOTE | 2024-08-19 18:59 | PC.NURSE ---
Report given to Carlie shift supervisor RN
--- NOTE | 2024-08-19 19:40 | PC.NURSE ---
PATIENT AMBULATORY TO BATHROOM WITHOUT DIFFICULTY. PATIENT DAUGHTER HUGO AT BEDSIDE, UPDATE PROVIDED BY ERP TO FAMILY AND PATIENT. VSS. RN MONITORING. PATIENT GIVEN ADDITIONAL WARM BLANKETS, CALL LIGHT WITHIN REACH.
[2024-08-19] MEDS: METOCLOPRAMIDE HCL INJ 10 MG/2 ML VIAL IV PUSH (20:06)
[2024-08-19] MEDS: diphenhydrAMINE HCl INJ 50 MG/ML VIAL IV PUSH (20:06)
[2024-08-19] MEDS: PIPERACILLN/TAZ 3.375GM/NS50ML 3.375 GM/50 ML BAG IVPB (20:13)
--- NOTE | 2024-08-19 20:21 | PC.NURSE ---
Dr. Lester at bedside speaking with patient and her daughter at this time. RN monitoring. VSS. IVF infusing. patient medicated per order.
--- NOTE | 2024-08-19 20:47 | PC.NURSE ---
patient resting on stretcher, states the nausea medication helped alittle bit . patient reports intermittent abadominal pain she is currently rating 6/10. ERP is aware, RN monitoring. Call light within reach.
[2024-08-19 21:03] LABS: Add Urine Microscopic? NO; Appearance Urine Clear (Clear); Bilirubin Urine Negative (Negative); Blood Urine Negative (Negative); Color Urine Light Yellow (Yellow); Glucose Urine UA Negative (Negative); Ketones Urine Trace (Negative); Leukocyte Esterase Ur Negative LEU/UL (Negative); Nitrate Urine Negative (Negative); Protein Urine Negative (Negative); Specific Grav Ur <= 1.005 (1.010-1.020)
--- NOTE | 2024-08-19 21:44 | PC.NURSE ---
patient daughter returns to bedside at this time. update provided, remain awaiting room at transfer facility. patient resting on stretcher with call light in reach.
[2024-08-19] MEDS: HYDROmorphone HCL INJ (*CRX) 2 MG/ML VIAL 0.5 MG IV PUSH (22:17)
--- NOTE | 2024-08-19 22:31 | PC.NURSE ---
patient medicated for pain, see MAR. patient daughter at bedside. patient placed on 3 lpm nasal cannula as patient very sensitive to pain medication and oxygen saturation began to decrease to 86% on RA post pain medical imaging specialist.
--- NOTE | 2024-08-19 22:45 | PC.NURSE ---
patient assisted to hospital bed for comfort while boarding for transfer facility. patient reports her pain is improved some. VSS, O2 improving and dropped down to 2 lpm. RN monitoring. call light within reach. daughter at bedside.
--- NOTE | 2024-08-19 22:46 | PC.NURSE ---
Dr. cohn at bedside for update and to check on patient.
--- NOTE | 2024-08-19 23:11 | PC.NURSE ---
patient resting on stretcher, RN monitoring. call light within reach.
[2024-08-20] VITALS (86 sets, daily range): BP systolic 114–145; BP diastolic 53–82; PULSE 61–169; RESP 14–20; TEMP 36.6–36.9; O2SAT 89–99
--- NOTE | 2024-08-20 00:09 | PC.NURSE ---
patient awake and ambulatory to bathroom with an episode of diarrhea. patient returned to bed, daughter remains at bedside. update provided and patient assisted to position of comfort. oxygen discontinued as patient no longer requiring support. RN monitoring. call light within reach.
--- NOTE | 2024-08-20 01:12 | PC.NURSE ---
patient resting on hospital bed, awaiting bed assignment at transfer facility. RN monitoring.
[2024-08-20] MEDS: HYDROmorphone HCL INJ (*CRX) 2 MG/ML VIAL 0.5 MG IV PUSH (02:19)
[2024-08-20] MEDS: ONDANSETRON INJ 4 MG/2 ML VIAL IV PUSH ×2 (02:19→13:46)
--- NOTE | 2024-08-20 02:30 | PC.NURSE ---
patient awake and alert, medicated per order, see MAR. RN monitoring, VSS. patient denies further needs, ice chips at bedside. awaiting bed at transfer hospital.
--- NOTE | 2024-08-20 07:01 | PC.NURSE ---
Patient in department during downtime procedures from 0245 AM until 0700. Please see attached documentation for nursing charting during the downtime hours.
--- NOTE | 2024-08-20 07:14 | PC.NURSE ---
patient resting on stretcher, report provided to ROSELYN Foss for continuation of care on day shift. call light within reach.
[2024-08-20] MEDS: ENOXAPARIN 120 MG/0.8 ML SYRINGE SUB-Q (08:08)
[2024-08-20] MEDS: PIPERACILLN/TAZ 3.375GM/NS50ML 3.375 GM/50 ML BAG IVPB (08:11)
== END 2024-08-20 14:05 | disposition short-term general hospital (02) ==
PROVIDERS: Emergency Medicine; Emergency Provider Emergency Medicine; PCP Family Medicine
DX: K52.9 Noninfective gastroenteritis and colitis, unspecified (principal); N17.9 Acute kidney failure, unspecified; N73.9 Female pelvic inflammatory disease, unspecified; E78.2 Mixed hyperlipidemia; I10 Essential (primary) hypertension; Z87.891 Personal history of nicotine dependence; Z20.822 Contact with and (suspected) exposure to COVID-19
CPT/HCPCS: 36415; 74177; 80053; 81003; 83690; 85025; 87637; 96361; 96365; 96372; 96375; 96376; 99285; J1171; J1200; J1650; J2405; J2543; J2765; J7030; Q9967

== ENCOUNTER 2024-09-02 19:15 | Emergency (ER) | payer MEDICARE, OTHER, SELFPAY ==
[2024-09-02] VITALS (22 sets, daily range): BP systolic 110–153; BP diastolic 54–83; PULSE 94–122; RESP 15–24; TEMP 36.6; O2SAT 89–96
--- NOTE | ~2024-09-02 | CT_ITS ---
EXAMINATION: CT abdomen pelvis w con DATE: 09/02/2024 20:55 INDICATION: abdominal pain TECHNIQUE: Computed tomography (CT) of the abdomen and pelvis was performed with 100 mL Omnipaque-350 intravenous contrast. Automated exposure control and iterative reconstruction technique were employe d. The dose-length product was 1478.00 mGy-cm. COMPARISON: 08/19/2024. FINDINGS: Lower thorax: Unremarkable Liver: Normal. Biliary/Gallbladder: Gallbladder is normal. No bile duct dilation. Pancreas: Mild fatty atrophy Spleen: Normal. Adrenals:No mass. Kidneys: No suspicious mass, obstructing stone, or hydronephrosis. 4 mm left lower pole nonobstructin g calcification GI tract: Moderate hiatal hernia. Diffusely dilated large bowel, increasing since the prior study. La rge bowel is fluid-filled. Long segment intraluminal stent in the distal sigmoid with adjacent surgic al/biopsy clips. Mild pericolonic stranding, most notably at the proximal sigmoid and hepatic flexure . No small bowel dilation. Normal appendix. Mesentery/Peritoneum: Rim-enhancing multilobulated fluid collection adjacent to the left side of the distal sigmoid in the left pelvis, extending to the dome of the bladder, concerning for abscess. The collection measures 1.7 x 3.6 cm adjacent to the left side of the sigmoid and is contiguous with a 1. 7 x 2.8 cm collection at the bladder dome. Loss of the fat plane with the bladder and strand-like con nections to an adjacent loop of bowel are noted. Retroperitoneum: Nonocclusive IVC thrombus. Atherosclerotic abdominal aortic and/or arterial calcific ations. Pelvis: The urinary bladder is mostly decompressed. Trace free pelvic fluid. Simple appearing 1.6 cm left ovarian cyst. Normal uterus. Soft Tissues: Soft tissues and body wall unremarkable. Bones: No acute osseous finding. IMPRESSION: Distal sigmoid intraluminal stent which traverses a region of nonspecific wall thickening. Increasing large bowel dilation, which may indicate stent obstruction with resulting large bowel obst ruction. Fluid-filled large bowel seen with diarrheal illness. 3.6 cm multilobulated abscess in the deep left pelvis and along the dome of the bladder. Localized si gmoid perforation, entero-enteric, and enterovesicular fistula, or a combination of those entities co uld all give this appearance. Mild pericolonic inflammatory changes at the hepatic flexure and proximal sigmoid could represent inf ectious, inflammatory, or ischemic colitis. Persistent nonocclusive IVC thrombus. Reviewed, dictated and finalized at location K. ER BATH IMPRESSION: Distal sigmoid intraluminal stent which traverses a region of nonspecific wall thickening. Increasing large bowel dilation, which may indicate stent obstruction with resu lting large bowel obstruction. Fluid-filled large bowel seen with diarrheal ill ness. 3.6 cm multilobulated abscess in the deep left pelvis and along the dome of the bladder. Localized sigmoid perforation, entero-enteric, and enterovesicular fi stula, or a combination of those entities could all give this appearance. Mild pericolonic inflammatory changes at the hepatic flexure and proximal sigmo id could represent infectious, inflammatory, or ischemic colitis. Persistent nonocclusive IVC thrombus.
--- NOTE | 2024-09-02 19:40 | ED_ITS ---
HPI - General Adult General Chief complaint: Nausea/Vomiting/Diarrhea Stated complaint: abdominal pain Time Seen by Provider: 09/02/24 19:21 History of Present Illness HPI narrative: Guillermina is a 76F with a PMH of DVT, hypothyroidism, obesity, OA, HTN and diverticulitis that presented to the ED with abdominal pain, watery diarrhea, and vomiting. She was recently admitted at [facility] for a week and had a sigmoid procedure done. She felt well for one day after discharge. After that she started to develop nausea and vomiting as well as diarrhea. This progressed to 5 episodes of eat per day. Later she started to have abdominal distension, pain and fatigue. She told her daughter that brought her to the ED. No CP or dyspnea currently. Related Data Home Medications ?Medication ?Instructions ?Recorded ?Confirmed ?Last Taken ?Type amoxicillin 875 mg-potassium 1 tablet PO Q12H 09/02/24 09/02/24 Unknown History clavulanate 125 mg tablet enoxaparin 120 mg/0.8 mL 120 mg subcut Q12H 09/02/24 09/02/24 Unknown History subcutaneous syringe Allergies Allergy/AdvReac Type Severity Reaction Status Date / Time hydrocodone Allergy Mild Vomitting Verified 08/13/24 23:15 oxycodone Allergy Unknown nausea Verified 08/13/24 23:15 Review of Systems 2 Review of Systems: All systems reviewed & are unremarkable except as noted in HPI and below PMFSH Past Medical History Medical History Abnormal CXR Abnormal EKG Candidiasis, urogenital BMI greater than 40 Elevated random blood glucose level Right knee DJD Left knee DJD Mucositis oral Essential (primary) hypertension Mixed hyperlipidemia Surgical History Surgical History History of cataract surgery Family History Family History Grandparent Diabetes mellitus Mother Cerebrovascular accident Social History Social History Social History: Smoking status: Former smoker Second hand tobacco smoke exposure: No Smoking end date: 09/11/78 Alcohol intake: never Alcohol use details: pt drinks socially Substance use: never Substance use type: does not use Do You Feel Safe in your Home?: Yes Lack of Transportation: No Lack of Food: Never True Current Housing: I Have Housing Concerned About Future Housing: No Difficulty Paying Gas/Electric Bills: No Difficulty Paying for Meds: No Currently Unemployed: YES Education: Decline to Answer Difficulty w/ Childcare or Family Care: No Living arrangements: with family Occupation/Education: retired Gender identity (if verbalized by the patient): Female Sexual Orientation (if Verbalized by the Patient): Straight or Heterosexual Exam 2 Const: General: cooperative, comfortable, no acute distress, well developed, alert and awake Orientation/consciousness: oriented to person, oriented to place and oriented to time Other: mildly ill appearing HENMT: Head: normal to inspection, normocephalic and atraumatic Ears: h earing grossly normal bilaterally and external ears normal Face/Nose/Sinus: N ormal external nose present Eyes: General: appearance normal, both eyes and all related structures P eriorbital: periorbital findings normal Sclera: sclerae normal Pupils: E qual, round and reactive pupils present Neck: Neck: normal visual inspection Chest: Chest palpation & inspection: normal inspection of the chest Resp: Effort & Inspection: normal respiratory effort, able to speak in complete sentences and no respiratory distress Auscultation: clear to auscultation bilaterally Cardio: Jugular venous distension: no JVD Rate: regular rate Rhythm: r egular rhythm GI: Inspection: normal to inspection GI Palp: Yes Soft to palpation A uscultation: normal bowel sounds Other: Pale skin. Distended abdomen. No guarding or rebound tenderness. Skin: General skin exam: normal color and no rashes or lesions noted Other: Pale skin. Neuro: General: oriented to person, oriented to place and oriented to time Cranial nerves: Yes Equal, round and reactive pupils present Extrem: General: normal to inspection Course Course Emergency Course: Ordered labs, IV fluids, zofran Labs showed mild leukocytosis, thrombocytosis, severe hypokalemia, elevated glucose IV potassium was ordered. EXAMINATION: CT abdomen pelvis w con DATE: 09/02/2024 20:55 INDICATION: abdominal pain TECHNIQUE: Computed tomography (CT) of the abdomen and pelvis was performed with 100 mL Omnipaque-350 intravenous contrast. Automated exposure control and iterative reconstruction technique were employed. The dose-length product was 1478.00 mGy-cm. COMPARISON: 08/19/2024. FINDINGS: Lower thorax: Unremarkable Liver: Normal. Biliary/Gallbladder: Gallbladder is normal. No bile duct dilation. Pancreas: Mild fatty atrophy Spleen: Normal. Adrenals:No mass. Kidneys: No suspicious mass, obstructing stone, or hydronephrosis. 4 mm left lower pole nonobstructing calcification GI tract: Moderate hiatal hernia. Diffusely dilated large bowel, increasing since the prior study. Large bowel is fluid-filled. Long segment intraluminal stent in the distal sigmoid with adjacent surgical/biopsy clips. Mild pericolonic stranding, most notably at the proximal sigmoid and hepatic flexure. No small bowel dilation. Normal appendix. Mesentery/Peritoneum: Rim-enhancing multilobulated fluid collection adjacent to the left side of the distal sigmoid in the left pelvis, extending to the dome of the bladder, concerning for abscess. The collection measures 1.7 x 3.6 cm adjacent to the left side of the sigmoid and is contiguous with a 1.7 x 2.8 cm collection at the bladder dome. Loss of the fat plane with the bladder and strand-like connections to an adjacent loop of bowel are noted. Retroperitoneum: Nonocclusive IVC thrombus. Atherosclerotic abdominal aortic and/or arterial calcifications. Pelvis: The urinary bladder is mostly decompressed. Trace free pelvic fluid. Simple appearing 1.6 cm left ovarian cyst. Normal uterus. Soft Tissues: Soft tissues and body wall unremarkable. Bones: No acute osseous finding. IMPRESSION: Distal sigmoid intraluminal stent which traverses a region of nonspecific wall thickening. Increasing large bowel dilation, which may indicate stent obstruction with resulting large bowel obstruction. Fluid-filled large bowel seen with diarrheal illness. 3.6 cm multilobulated abscess in the deep left pelvis and along the dome of the bladder. Localized sigmoid perforation, entero-enteric, and enterovesicular fistula, or a combination of those entities could all give this appearance. Mild pericolonic inflammatory changes at the hepatic flexure and proximal sigmoid could represent infectious, inflammatory, or ischemic colitis. Persistent nonocclusive IVC thrombus. Emma reported that K+ must be above 2.5 to go to floor, and ICU is full. Ordered BMP. Repeat potassium was 2.5. Emma called back and Dr. Khan accepted the patient. Vital Signs Vital signs: Vital Signs Temperature 98 F 09/02/24 19:25 Pulse Rate 122 H 09/02/24 19:25 Respiratory Rate 20 09/02/24 19:25 Blood Pressure 153/83 H 09/02/24 19:25 Pulse Oximetry 95 09/02/24 19:25 Oxygen Delivery Room Air 09/02/24 19:25 Temperature 98 F 09/02/24 19:25 Pulse Rate 104 H 09/02/24 23:01 Respiratory Rate 19 09/02/24 20:31 Blood Pressure 122/67 09/02/24 23:01 Pulse Oximetry 93 09/02/24 23:01 Oxygen Delivery Room Air 09/02/24 20:31 Medical Decision Making Vital Signs Vital Signs: Vital Signs Temperature 98 F 09/02/24 19:25 Pulse Rate 122 H 09/02/24 19:25 Respiratory Rate 20 09/02/24 19:25 Blood Pressure 153/83 H 09/02/24 19:25 Pulse Oximetry 95 09/02/24 19:25 Oxygen Delivery Room Air 09/02/24 19:25 Temperature 98 F 09/02/24 19:25 Pulse Rate 104 H 09/02/24 23:01 Respiratory Rate 19 09/02/24 20:31 Blood Pressure 122/67 09/02/24 23:01 Pulse Oximetry 93 09/02/24 23:01 Oxygen Delivery Room Air 09/02/24 20:31 Lab Data 09/02/24 19:35 09/02/24 22:35 Labs: Lab Results 09/02/24 09/02/24 09/02/24 Range/Units 19:35 22:35 22:51 WBC 14.5 H (4.8-10.8) K/mm3 RBC 4.39 (4.20-5.40) M/mm3 Hgb 13.0 (11.7-13.8) g/dL Hct 38.7 (35.0-42.0) % MCV 88.2 (78.0-102.0) fL MCH 29.6 (27.0-31.0) pg MCHC 33.6 (32-36) g/dL RDW 13.9 (11.6-14.4) % Plt Count 616 H (150-420) K/mm3 MPV 8.6 L (9.2-11.8) fl Immature Gran % (Auto) 1.0 H (0.0-0.0) % Neut % (Auto) 71.7 H (50.0-70.0) % Lymph % (Auto) 19.6 (18.0-42.0) % [place] % (Auto) 6.6 (2.0-11.0) % Eos % (Auto) 0.6 L (1.0-6.0) % Baso % (Auto) 0.5 (0.0-1.0) % Lymph # (Auto) 2.83 (1.10-4.50) K/mm3 [place] # (Auto) 0.95 H (0.10-0.90) K/mm3 Eos # (Auto) 0.08 (0.02-0.50) K/mm3 Baso # (Auto) 0.07 (0.00-0.10) K/mm3 Abs Immat Gran (auto) 0.14 H (0.00-0.00) K/mm3 Absolute Neuts (auto) 10.38 H (1.70-7.20) K/mm3 Absolute Nucleated RBC 0.00 (0.00-0.00) K/mm3 Nucleated RBC % 0.0 (0-0.0) % % Immature Plt Fraction 0.8 L (1.0-7.0) % Sodium 135 L 138 (136-145) mmol/L Potassium 2.4 L* 2.5 L (3.5-5.1) mmol/L Chloride 94 L 99 (98-108) mmol/L Carbon Dioxide 26 29 (21-32) mmol/L Anion Gap 15 H 10 (4-12) mmol/L BUN 5 L 4 L (7-18) mg/dL Creatinine 0.83 0.73 (0.55-1.02) mg/dL Estim Creat Clear Calc 74 84 ml/min Estimated GFR > 60 > 60 (59 - ) Glucose 147 H 106 H (70-99) mg/dL Calculated Osmolality 280 L 282 L (285-295) mOsm/kg Lactic Acid 1.7 (0.4-2.0) mmol/L Calcium 9.8 8.6 (8.5-10.1) mg/dL Total Bilirubin 0.5 (0.00-1.00) mg/dL AST 18 (15-37) U/L ALT 20 (14-59) U/L Alkaline Phosphatase 80 (46-116) U/L Troponin I 5.1 (0.00-60.4) ng/L C-Reactive Protein 0.6 (0.0-0.9) mg/dL Total Protein 7.1 (6.4-8.2) g/dL Albumin 3.0 L (3.4-5.0) g/dL Lipase 32 (16-77) U/L Urine Color Light yellow (Yellow) Urine Appearance Clear (Clear) Urine pH 7.0 (5.0-8.0) Ur Specific Baker <= 1.005 L (1.010-1.020) Urine Protein Trace H (Negative) Urine Glucose (UA) Negative (Negative) Urine Ketones Trace H (Negative) Ur Blood (Man) Trace-intact H (Negative) Urine Nitrate Negative (Negative) Urine Bilirubin Negative (Negative) Urine Urobilinogen 0.2 (0.2-1.0) mg/dL Leukocyte Esterase Rfl Negative (Negative) LESLY/UL Urine RBC 0-2 (0-2) /hpf Urine WBC 0-3 (0-3) /hpf Ur Squamous Epith Cells Few (Few) /hpf Urine Bacteria None seen (None) /hpf Discharge Plan Discharge Clinical Impression: Diverticulitis of intestine with abscess Patient Disposition: Acute Care Hospital Condition: Serious Patient Language: Qatari Prescriptions: No Action amoxicillin-pot clavulanate 875-125 mg tablet 1 tablet PO Q12H enoxaparin 120 mg/0.8 mL syringe 120 mg subcut Q12H metoprolol tartrate 25 mg tablet 25 mg PO BID Qty: 180 3RF alendronate 70 mg tablet 70 mg PO WEEKLY Qty: 14 3RF nystatin 100,000 unit/gram cream 1 applic topical BID Qty: 30 0RF omeprazole 20 mg capsule,delayed release(DR/EC) 20 mg PO DAILY Qty: 90 3RF furosemide 20 mg tablet 20 mg PO BID Qty: 90 0RF ezetimibe 10 mg tablet 10 mg PO DAILY Qty: 90 4RF Follow-up/Referrals: Maureen Roman MD [Primary Care Provider] -
[2024-09-02 19:41] LABS: Basophils Absolute Auto 0.07 K/mm3 (0.00-0.10); Basophils Percent Auto 0.5 % (0.0-1.0); Eosinophils Absolute Auto 0.08 K/mm3 (0.02-0.50); Eosinophils Percent Auto 0.6 % (1.0-6.0); Hematocrit 38.7 % (35.0-42.0); Immature Granulocyte Absolute 0.14 K/mm3 (0.00-0.00); Immature Platelet Fraction Pct 0.8 % (1.0-7.0); Lymphocytes Absolute Auto 2.83 K/mm3 (1.10-4.50); Lymphocytes Percent Auto 19.6 % (18.0-42.0); Mean Corpuscular HGB Conc 33.6 g/dL (32-36); Mean Corpuscular Hemoglobin 29.6 pg (27.0-31.0); Mean Corpuscular Volume 88.2 fL (78.0-102.0); Mean Platelet Volume 8.6 fl (9.2-11.8); Monocytes Absolute Auto 0.95 K/mm3 (0.10-0.90); Monocytes Percent Auto 6.6 % (2.0-11.0); Neutrophils Absolute Auto 10.38 K/mm3 (1.70-7.20); Neutrophils Percent Auto 71.7 % (50.0-70.0); Platelet Count Result 616 K/mm3 (150-420); Red Blood Count 4.39 M/mm3 (4.20-5.40); Red Cell Distribution Width 13.9 % (11.6-14.4); White Blood Count 14.5 K/mm3 (4.8-10.8)
[2024-09-02] MEDS: ONDANSETRON INJ 4 MG/2 ML VIAL IV PUSH (19:48)
[2024-09-02] MEDS: SODIUM CHLORIDE 0.9% IV 1,000 ML 999 ML IV CONT ×2 (19:49→21:23)
[2024-09-02 20:00] LABS: Alanine Aminotransferase 20 U/L (14-59); Alkaline Phosphatase 80 U/L (46-116); Anion Gap 15 mmol/L (4-12); Aspartate Amino Transferase 18 U/L (15-37); Bilirubin,Total 0.5 mg/dL (0.00-1.00); Blood Urea Nitrogen 5 mg/dL (7-18); CRP 0.6 mg/dL (0.0-0.9); Calcium 9.8 mg/dL (8.5-10.1); Carbon Dioxide 26 mmol/L (21-32); Chloride 94 mmol/L (98-108); Estimated CRCL calculation 74 ml/min; Estimated Glomerular Filt Rate > 60; Glucose 147 mg/dL (70-99); Lactic Acid Reflex 1.7 mmol/L (0.4-2.0); Lipase 32 U/L (16-77); Osmolality Calculated 280 mOsm/kg (285-295); Sodium 135 mmol/L (136-145); Total Protein 7.1 g/dL (6.4-8.2); Troponin I 5.1 ng/L (0.00-60.4)
[2024-09-02 20:01] LABS: Potassium 2.4 mmol/L (3.5-5.1)
[2024-09-02] MEDS: KCL 20 MEQ/SW 100 ML 100 ML 50 MEQ IVPB ×2 (20:19→23:21)
--- NOTE | 2024-09-02 20:52 | PC.NURSE ---
Pt resting, VSS, pt back from CT, given warm blankets and daughter at bedside. Awaiting CT results.
--- NOTE | 2024-09-02 21:38 | PC.NURSE ---
ERP in to talk to pt and daughter about CT report and need for transfer. Pt wants transfer back to [facility] since this is where her surgeon and are located.
--- NOTE | 2024-09-02 22:30 | PC.NURSE ---
Pt moved to more comfortable bed and repositioned, call lyon in place, continuing to monitor ans await acceptance to transfer.
[2024-09-02] MEDS: PIPERACILLN/TAZ 3.375GM/NS50ML 3.375 GM/50 ML BAG IVPB (22:48)
[2024-09-02 22:51] LABS: Anion Gap 10 mmol/L (4-12); Blood Urea Nitrogen 4 mg/dL (7-18); Calcium 8.6 mg/dL (8.5-10.1); Carbon Dioxide 29 mmol/L (21-32); Chloride 99 mmol/L (98-108); Estimated CRCL calculation 84 ml/min; Estimated Glomerular Filt Rate > 60; Glucose 106 mg/dL (70-99); Osmolality Calculated 282 mOsm/kg (285-295); Sodium 138 mmol/L (136-145)
[2024-09-02] MEDS: ENOXAPARIN 120 MG/0.8 ML SYRINGE SUB-Q (22:51)
[2024-09-02 22:53] LABS: Add Urine Microscopic? YES; Appearance Urine Clear (Clear); Bilirubin Urine Negative (Negative); Blood Urine Trace-intact (Negative); Color Urine Light Yellow (Yellow); Glucose Urine UA Negative (Negative); Ketones Urine Trace (Negative); Leukocyte Esterase Ur Negative LEU/UL (Negative); Nitrate Urine Negative (Negative); Protein Urine Trace (Negative); Specific Grav Ur <= 1.005 (1.010-1.020); Urobilinogen Urine 0.2 mg/dL (0.2-1.0)
[2024-09-02 22:58] LABS: Potassium 2.5 mmol/L (3.5-5.1)
[2024-09-02 22:59] LABS: Bacteria Urine None seen /hpf; RBC Urine 0-2 /hpf (0-2); Squamous Epithelial Cell Urine Few /hpf (Few); WBC Urine 0-3 /hpf (0-3)
[2024-09-02] MEDS: SODIUM CHLORIDE 0.9% IV 500 ML 999 ML IV CONT (23:21)
--- NOTE | 2024-09-02 23:27 | PC.NURSE ---
Pt resting w/ lights dimmed, IVF infusing as per order. VSS. Awaiting transfer status to [facility].
[2024-09-02 23:53] LABS: Magnesium 1.8 mg/dL (1.8-2.4)
--- NOTE | 2024-09-03 00:14 | PC.NURSE ---
Pt resting, report given to ROSELYN Vieira. Will await EMS for transfer. VSS.
[2024-09-03 00:20] VITALS: BP 123/62; PULSE 102; RESP 20; TEMP 36.8; O2SAT 92
--- NOTE | 2024-09-03 00:29 | PC.NURSE ---
[facility] pts K+ needs to be above 2.5... ERP Dr Bradley notified and plan to redraw another K+ level after this current KCL rider is complete.
[2024-09-03 00:30] VITALS: PULSE 107; O2SAT 90
[2024-09-03 00:31] VITALS: BP 119/68; PULSE 108; O2SAT 92
[2024-09-03 01:01] VITALS: BP 132/67; PULSE 119; O2SAT 93
--- NOTE | 2024-09-03 01:01 | PC.NURSE ---
Lab redraw for K+ level, will await results, pt resting, VSS, no distress noted, call lyon at pt side.
[2024-09-03 01:21] LABS: Anion Gap 9 mmol/L (4-12); Blood Urea Nitrogen 5 mg/dL (7-18); Calcium 8.6 mg/dL (8.5-10.1); Carbon Dioxide 30 mmol/L (21-32); Chloride 98 mmol/L (98-108); Estimated CRCL calculation 84 ml/min; Estimated Glomerular Filt Rate > 60; Glucose 108 mg/dL (70-99); Osmolality Calculated 282 mOsm/kg (285-295); Potassium 2.7 mmol/L (3.5-5.1); Sodium 137 mmol/L (136-145)
--- NOTE | 2024-09-03 01:26 | PC.NURSE ---
Call back to [facility] and spoke to ROSELYN Vieira w/ pts updated K+ level at 2.7. Call repaged for [facility] for transfer.
[2024-09-03] MEDS: ONDANSETRON INJ 4 MG/2 ML VIAL IV PUSH (01:51)
[2024-09-03 01:54] VITALS: BP 134/67; PULSE 102; RESP 20; TEMP 36.7; O2SAT 94
--- NOTE | 2024-09-04 12:14 | PC.NURSE ---
preliminary blood culture noted no growth to date. pt transfer to [facility].
--- NOTE | 2024-09-09 13:55 | PC.NURSE ---
final blood culture reviewed. no growth after 5 days. no change in plan of care
== END 2024-09-03 01:54 | disposition short-term general hospital (02) ==
PROVIDERS: Emergency Provider Family Medicine; PCP Family Medicine
DX: K57.92 Diverticulitis of intestine, part unspecified, without perforation or abscess without bleeding (principal); K65.1 Peritoneal abscess; I10 Essential (primary) hypertension; E03.9 Hypothyroidism, unspecified; Z86.718 Personal history of other venous thrombosis and embolism; E78.2 Mixed hyperlipidemia; Z87.891 Personal history of nicotine dependence
CPT/HCPCS: 36415; 74177; 80048; 80053; 81001; 83605; 83690; 83735; 84484; 85025; 85055; 86140; 87040; 96365; 96366; 96367; 96372; 96375; 96376; 99285; J1650; J2405; J2543; J3480; J7030; J7040; Q9967

== ENCOUNTER 2024-10-03 16:06 | Outpatient (NON) | payer MEDICARE, OTHER, SELFPAY ==
[2024-10-03 18:04] LABS: Toxigenic C. Diff NEGATIVE (NEGATIVE)
--- OUTSIDE RECORDS SUMMARY | 2024-10-04 06:07 | XMS_ITS | Continuity of Care Document ---
Author Name [facility] Organization [facility] Care Team Providers Care Photography Coordinator Name Role Phone [facility] Unavailable Unavailable Medications Combined list of outpatient medications from Department of Defense and Veterans Affairs facilities.Medications provided include 1) outpatient medications from the last 15 months, and 2) patient-reported medications. Medication Details Route Status Patient Instructions Prescription Expires Prescription Number Last Dispense Date Ordering Provider Order Date Order Qty Source ALENDRONATE SODIUM (alendronat e sodium), 70 MG, TABLET, ORAL, [employer]ARMACE, 4 ea. BLIST PACK Active [id number] 4 2023 12 Pharmac y Data Transac tion Service Facilit y AMOXICILLIN -CLAVULANAT E POTASS (amoxicilli n/potassium clavulanate ), 875-125 MG, TABLET, ORAL, [employer],, 100 ea. BOTTLE Active [id number] 4 2023 6 Pharmac y Data Transac tion Service Facilit y Benzonatate (demandmart) 500 CAPSULE in 1 BOTTLE Active [id number] 02/13/20 2 4 2023 90 Pharmac y Data Transac tion Service Facilit y CIPROFLOXAC IN HCL (CIPROFLOXA JUAN HCL), 500 MG, TABLET, ORAL, PACK PHARMACEUT, 500 ea. BOTTLE Active [id number] 4 2023 14 Pharmac y Data Transac tion Service Facilit y METOCLOPRAM TULIO HCL (METOCLOPRA MIDE HCL), 5MG, TABLET, ORAL, [employer], 100 ea. BOTTLE Active [id number] 4 2023 90 Pharmac y Data Transac tion Service Facilit y METOPROLOL TARTRATE (metoprolol tartrate), 25 MG, TABLET, ORAL, [employer] 1000 ea. BOTTLE Cancele d [id number] 4 [id number] : 2023 0 Pharmac y Data Transac tion Service Facilit y METOPROLOL TARTRATE (metoprolol tartrate), 25 MG, TABLET, ORAL, [employer] 1000 ea. BOTTLE Active [id number] 4 2023 180 Pharmac y Data Transac tion Service Facilit y METOPROLOL TARTRATE (metoprolol tartrate), 25 MG, TABLET, ORAL, [employer] 1000 ea. BOTTLE Active [id number] 4 2023 180 Pharmac y Data Transac tion Service Facilit y METRONIDAZO LE (METRONIDAZ OLE), 500MG, TABLET, ORAL, [employer], 100 ea. BOTTLE Active [id number] 4 2023 21 Pharmac y Data Transac tion Service Facilit y MICARDIS HCT (TELMISARTA N/HYDROCHLO ROTHIAZID), 40-12.5MG, TABLET, ORAL, [employer]., 30 ea. BLIST PACK Active [id number] 4 2023 90 Pharmac y Data Transac tion Service Facilit y MICARDIS HCT (TELMISARTA N/HYDROCHLO ROTHIAZID), 40-12.5MG, TABLET, ORAL, [employer]., 30 ea. BLIST PACK Active [id number] 4 2023 90 Pharmac y Data Transac tion Service Facilit y NYSTATIN (nystatin), 174649/G, CREAM (G), TOPICAL, ALBA PHARMAC, 30 g TUBE Cancele d [id number] 4 [id number] : 2023 0 Pharmac y Data Transac tion Service Facilit y NYSTATIN (nystatin), 627075/G, CREAM (G), TOPICAL, [employer], 30 g TUBE Active [id number] 4 2023 30 Pharmac y Data Transac tion Service Facilit y OMEPRAZOLE (omeprazole ), 20 MG, CAPSULE DR, ORAL, [employer] 1000 ea. BOTTLE Active [id number] 4 2023 90 Pharmac y Data Transac tion Service Facilit y OMEPRAZOLE (omeprazole ), 20 MG, CAPSULE DR, ORAL, [employer], 1000 ea. BOTTLE Active [id number] 4 2023 90 Pharmac y Data Transac tion Service Facilit y SIMVASTATIN (simvastati n), 20 MG, TABLET, ORAL, [employer], 1000 ea. BOTTLE Active [id number] 4 2023 90 Pharmac y Data Transac tion Service Facilit y SIMVASTATIN (simvastati n), 20 MG, TABLET, ORAL, [employer], 1000 ea. BOTTLE Active [id number] 4 2023 90 Pharmac y Data Transac tion Service Facilit y Allergies, Adverse Reactions, Alerts Combined list of allergies from Department of Defense and Veterans Affairs facilities. It does not include entries that were removed or entered in error. Substance Category Reaction Severity Reaction type Status Date Reported Comments Source OXYCODONE Drug allergy (disorder) Unknown active 02/18/2015 [facility] [employer] [facility] ([facility] [place] [facility]) Immunizations Combined list of available immunizations from the Department of Defense and Veterans Affairs facilities. Immunization Series Date Given Administered By Site Reaction Lot Number CVX Code Drug Senior Sql Server Database Developer Status Comments Source COVID-19, mRNA, LNP-S, PF, 100 mcg or 50 mcg dose 2020 TAMIKO, () Not Given COVID-19, mRNA, LNP-S, PF, 100 mcg or 50 mcg dose DoD influenza, high-dose, quadrivalent 2020 WEN[place]AK, () Not Given influenza , high-dose , quadrival ent DoD COVID-19 vaccine, vector-nr, rS-Ad26, PF, 0.5 mL 2020 ALUL, () Not Given COVID-19 vaccine, vector-nr , rS-Ad26, PF, 0.5 mL DoD COVID-19, mRNA, LNP-S, PF, 30 mcg/0.3 mL dose 2020 AL[facility], [employer] (PFR) Not Given COVID-19, mRNA, LNP-S, PF, 30 mcg/0.3 mL dose DoD zoster recombinant 2018 [facility], () Not Given zoster recombina nt DoD zoster recombinant 2018 [facility], () Not Given zoster recombina nt DoD Tdap 2015 [facility], () Not Given Tdap DoD Social History Combined list of available smoking, tobacco, and other social history from Department of Defense and Veterans Affairs facilities. Social History Type Response Date Comment Sourc e This section is an empty social history section. DoD
== END 2024-10-03 16:07 | disposition home or self-care (01) ==
PROVIDERS: PCP Family Medicine
DX: L08.9 Local infection of the skin and subcutaneous tissue, unspecified (principal); R19.7 Diarrhea, unspecified; K57.20 Diverticulitis of large intestine with perforation and abscess without bleeding; R53.81 Other malaise
CPT/HCPCS: 87070; 87075; 87186; 87205; 87493

== ENCOUNTER 2024-11-14 12:01 | Outpatient (CLI) | payer MEDICARE, OTHER, SELFPAY ==
--- NOTE | ~2024-11-14 | US_ITS ---
EXAMINATION: US venous doppler LE LT DATE: 11/14/2024 12:50 INDICATION: Follow-up left lower extremity deep venous thrombosis. Of note, patient is currently on Lovenox and by report, has an IVC filter. No IVC filter is visualized on the most recent CT examination dated 09/02/2024. As per the patient's EMR, an IVC filter was placed during her recent hospitalization, likely on or ar ound 09/07/2024. Today's ultrasound examination is to evaluate for the persistence or resolution of the left lower ext remity thrombosis seen in August 2024 TECHNIQUE: Grayscale ultrasound images without and with compression and Doppler ultrasound images of the left lower extremity veins were obtained. COMPARISON: 07/15/2024. Reference is also made to a CT examination of the abdomen and pelvis dated 09/02/2024 which demonstra ariela nonocclusive thrombus within the inferior vena cava to the level of L1/L2 in addition to the visu alized portions of the left lower extremity. FINDINGS: The left common femoral vein is now patent and demonstrates appropriate color flow. Inflow from the left greater saphenous vein is now patent and easily compressible. Profunda femoral vein is widely patent, although interrogation for compressibility was not performed on the submitted images. This patient has 2 left femoral veins: the deeper left femoral vein (not to be confused with the profunda femoral vein) is occluded and nonc ompressible. No color flow is demonstrated. The more superficial of the 2 left femoral veins demonstrates appropriate color flow but is only part ially compressible. Both left femoral veins demonstrate markedly thickened betts consistent with prior thrombosis. This patient has 2 left popliteal veins: these demonstrate only partial compressibility. No interrogation for color flow was performed on the submitted images. The left posterior tibial vein and left peroneal vein demonstrate appropriate color flow although no interrogation for compressibility was performed on the submitted images. IMPRESSION: Limited interrogation of the left lower extremity, as detailed above. From the limited evaluation performed, the left common femoral vein is now patent as is inflow from t he left greater saphenous vein. The left profunda femoral vein is also now patent although interrogation for compressibility was not performed. Continued thrombosis of the deeper of the 2 left femoral veins with only partial compressibility of t he more superficial of the 2 left femoral veins. Partial compressibility of both of the 2 popliteal veins without interrogation for color flow on the submitted images. The left posterior tibial and peroneal veins demonstrate color flow although no interrogation for com pressibility was performed on the submitted images. Given patient's provoked deep venous thrombosis (prolonged immobility while traveling) would maintain anticoagulation and repeat interrogation of both lower extremities as well as imaging of the inferio r vena cava prior to removal of the inferior vena cava filter or discontinuation of the anticoagulati on. Please feel free to contact me personally ([phone]) for any questions or concerns about the inte rpretation of this imaging. Reviewed, dictated and finalized at location A. NELL OPERATOR IMPRESSION: Limited interrogation of the left lower extremity, as detailed above. From the limited evaluation performed, the left common femoral vein is now abdul nt as is inflow from the left greater saphenous vein. The left profunda femoral vein is also now patent although interrogation for co mpressibility was not performed. Continued thrombosis of the deeper of the 2 left femoral veins with only partia l compressibility of the more superficial of the 2 left femoral veins. Partial compressibility of both of the 2 popliteal veins without interrogation for color flow on the submitted images. The left posterior tibial and peroneal veins demonstrate color flow although no interrogation for compressibility was performed on the submitted images. Given patient's provoked deep venous thrombosis (prolonged immobility while tra veling) would maintain anticoagulation and repeat interrogation of both lower e xtremities as well as imaging of the inferior vena cava prior to removal of the inferior vena cava filter or discontinuation of the anticoagulation. Please feel free to contact me personally ([phone]) for any questions or c oncerns about the interpretation of this imaging.
[2024-11-14 12:28] LABS: Basophils Absolute Auto 0.05 K/mm3 (0.00-0.10); Basophils Percent Auto 0.5 % (0.0-1.0); Eosinophils Absolute Auto 0.15 K/mm3 (0.02-0.50); Eosinophils Percent Auto 1.5 % (1.0-6.0); Hematocrit 36.5 % (35.0-42.0); Hemoglobin 11.2 g/dL (11.7-13.8); Immature Granulocyte Absolute 0.04 K/mm3 (0.00-0.00); Immature Granulocyte Percent A 0.4 % (0.0-0.0); Lymphocytes Absolute Auto 2.93 K/mm3 (1.10-4.50); Lymphocytes Percent Auto 30.2 % (18.0-42.0); Mean Corpuscular HGB Conc 30.7 g/dL (32-36); Mean Corpuscular Hemoglobin 28.3 pg (27.0-31.0); Mean Corpuscular Volume 92.2 fL (78.0-102.0); Mean Platelet Volume 8.7 fl (9.2-11.8); Monocytes Absolute Auto 0.59 K/mm3 (0.10-0.90); Monocytes Percent Auto 6.1 % (2.0-11.0); Neutrophils Absolute Auto 5.93 K/mm3 (1.70-7.20); Neutrophils Percent Auto 61.3 % (50.0-70.0); Platelet Count Result 398 K/mm3 (150-420); Red Blood Count 3.96 M/mm3 (4.20-5.40); Red Cell Distribution Width 14.7 % (11.6-14.4); White Blood Count 9.7 K/mm3 (4.8-10.8)
--- OUTSIDE RECORDS SUMMARY | 2024-11-14 13:32 | XMS_ITS | Continuity of Care Document ---
Author Organization [facility] Address [address] [place] [address] [address] Phone Care Team Providers Care Web Press Jogger Name Role Phone Flo Brantley MD Unavailable Unavailable Procedures Procedure Date Work/medical disability examination I M E X-ray exam lower spine 2-3 views 2007 Advance Directives Directive Yes / No Effective Date File Name No Information Encounters Encounter Description Practice Location Reason(s) For Visit Diagnoses Date Provider Providers Copied on Encounter Work/medical disability examination [facility], [address] [place] [address], [id number], tel:[phone] [facility] No Information [address] Karon Rossi. [address] [place] [address], [id number] , . tel: [phone] Family History Family Member Type Diagnosis Age At Onset No Information Payers Payer name Insurance type Covered constitution party ID Authoriza tion(s) Evalumed [id number] Social History Type Description Quantity Date Captured Comments Sex Female Smoking Status No Information Chief Complaint And Reason For Visit No Information Reason For Referral Reason For Referral No Information History Of Present Illness Encounter Date Complaint History Of Prese nt Illness No Information Functional Status Date Functional Assessmen t No Information Instructions Date Instruction Additional Infor mation No Information Assessments Type Assessment Date No Information Patient Care Teams Name Effective Dates (start - stop) Status Members No Information
--- OUTSIDE RECORDS SUMMARY | 2024-11-14 13:32 | XMS_ITS | Clinical Summary ---
Author Organization [facility] Address [address] [place] [address] Care Team Providers Care Substation Operator Conversion Name Role Phone Petey Vasquez MD Primary Care Provider [phone] Allergies Active Allergy Reactions Criticality Noted Date Comments Oxycodone Nausea and Vomiting 08/14/2024 Medications alendronate (FOSAMAX) 70 MG tablet Take 1 tablet (70 mg total) by mouth every 7 days. Active ezetimibe-simva statin (VYTORIN) 10-20 MG tablet Take 1 tablet by mouth nightly at bedtime. Active furosemide (LASIX) 20 MG tablet Take 1 tablet (20 mg total) by mouth 2 (two) times daily. Active metoclopramide (REGLAN) 5 MG tablet Take 1 tablet (5 mg total) by mouth 3 (three) times daily. Active metoprolol tartrate (LOPRESSOR) 25 MG tablet Take 1 tablet (25 mg total) by mouth 2 (two) times daily. Active nystatin (MYCOSTATIN) cream Apply topically 2 (two) times daily. Active omeprazole (PRILOSEC) 20 MG capsule Take 1 capsule (20 mg total) by mouth daily. Active Active Problems Problem Noted Date Diagnosed Date Thrombus 08/14/2024 Colitis 08/14/2024 Encounters Date Type Department Care Team Description 09/10/2024 8:00 AM DIRECTOR COLLEGE Home Care Visit [facility] [address] [place], [place] [id number] Drea Martinez RN SN NON ADMIT SOC 09/10/2024 Scan [facility] [address] [place] [address] Scanned, [facility] 08/27/2024 Scan [facility] [address] [place] [address] Scanned, [facility] 08/19/2024 Hospital Follow-up Call [facility] [address] [place] [address] Coby Martinez RN 08/14/2024 4:45 AM DIRECTOR COLLEGE - 08/17/2024 1:00 PM DIRECTOR COLLEGE Hospital Encounter [facility] [address] [place] [address] Rebecca Singh MD Sohail, Atif, MD Discharge Disposition: Home or Self Care (Routine Discharge) from Last 3 Months Social History Tobacco Use Types Packs/Day Years Used Date Smoking Tobacco: Former Cigarettes 0.1 11 1 972 1982 Smokeless Tobacco: Never Alcohol Use Standard Drinks/Week Comments Not Currently 0 (1 standard drink = 0.6 oz pur e alcohol) [facility] Utilities Answer Date Recorded In the past 12 months has e electric, gas, oil, or water [employer] threatened to shut off services in your home? No 08/14/2024 Humiliation, Afraid, Rape, and Kick questionnair e Answer Date Recorded Within the last year, have y ou been afraid of your partner or ex-partner? No 08/14/2024 Within the last year, have y ou been humiliated or emotionally abused in other ways by your partner or ex-partner? No Within the last year, have y ou been kicked, hit, slapped, or otherwise physically hurt by your partner or ex-partner? No 08/14/2024 Within the last year, have y ou been raped or forced to have any kind of sexual activity by your partner or ex-partner? No 08/14/2024 Overall Financial Resource Strain (CARDIA) Answe r Date Recorded How hard is it for you to pa y for the very basics like food, housing, medical care, and heating? Not hard at all 08/14/2024 Hunger Vital Sign Answer Date Recorded Within the past 12 months, y ou worried that your food would run out before you got the money to buy more. Never true 08/14/20 24 Within the past 12 months, t he food you bought just didn't last and you didn't have money to get more. Never true 08/14/2024 PRAPARE - Transportation Answer Date Re corded In the past 12 months, has l ack of transportation kept you from medical appointments or from getting medications? No 12/2023 In the past 12 months, has l ack of transportation kept you from meetings, work, or from getting things needed for daily living? No 08/14/2024 Housing Stability Vital Sign Answer Bulmaro e Recorded In the last 12 months, was t here a time when you were not able to pay the mortgage or rent on time? No 08/14/2024 In the past 12 months, how m any times have you moved where you were living? 0 08/14/2024 At any time in the past 12 m [facility], were you homeless or living in a skilled nursing (including now)? No 08/14/2024 Comments No Sex and Gender Information Value Date Recorded Sex Assigned at Not on file Legal Sex Female 8:11 PM CDT Gender Identity Not on file Sexual Orientation Not on file Last Filed Vital Signs Vital Sign Reading Time Taken Comments Blood Pressure 143/56 08/17/2024 8:04 AM DIRECTOR COLLEGE Pulse 78 08/17/2024 8:04 AM DIRECTOR COLLEGE Temperature 37 C (98.6 F) 08/17/2024 8:04 AM DIRECTOR COLLEGE Respiratory Rate 18 08/17/2024 8:04 AM DIRECTOR COLLEGE Oxygen Saturation 96% 08/17/2024 8:04 AM DIRECTOR COLLEGE Inhaled Oxygen Concentration - - Weight 118.2 kg (260 lb 9.3 oz) 08/17/2024 5:54 AM DIRECTOR COLLEGE Height 170.2 cm (5' 7 ) 08/14/2024 4:49 AM DIRECTOR COLLEGE Body Mass Index 40.81 08/14/2024 4:49 AM DIRECTOR COLLEGE Plan of Treatment Health Maintenance Due Date Last Done Comments Hepatitis C 1972 Mammogram Screening 1994 RSV Immunization or 60+ Years (1 - Risk 60-74 years 1-dose series) 2014 Annual Medicare Wellness Visit 2019 Dexa Scan (General) 2019 COVID-19 Vaccine (3 - season) 2024 08/18/2021, 01/23/2021 DTaP, Tdap and Td Vaccines (2 - Td or Tdap) 04/05/2026 04/05/2016 Colorectal Cancer Screening Flex Sig (5 Years) 08/15/2029 08/15/2024, 08/15/2024 Zoster Vaccines Completed 08/29/2019, 06/21/2019 Pneumococcal Vaccine: 65+ Years Completed 06/08/2020, 06/21/2019 Influenza Adult Completed 05/14/2024, 02/2022, 08/18/2021, Additional history exists Meningococcal B Vaccine Aged Out No l onger eligible based on patient's age to complete this topic Meningococcal Vaccine Aged Out No didier vai eligible based on patient's age to complete this topic RSV Immunizations Under 20 Months Aged Out No longer eligible based on patient's age to complete this topic Procedures Procedure Name Priority Date/Time Associated Diagnosis Comments FACTOR V LEIDEN MUTATION Routine 024 12:11 PM DIRECTOR COLLEGE PROTHROMBIN GENE MUTATION Routine 08/16/2024 12:11 PM DIRECTOR COLLEGE ANTIPHOSPHOLIPID AB PANEL Routine 08/16/2024 12:11 PM DIRECTOR COLLEGE PARTIAL THROMBOPLASTIN TIME,PTT TIMED 08/16/2024 7:22 AM DIRECTOR COLLEGE FLEX SIG GENERIC 08/15/2024 1:07 PM DIRECTOR COLLEGE from Last 3 Months or Most Recently Relevant to Health Maintenance Results * ANTIPHOSPHOLIPID AB PANEL (08/16/2024 12:11 PM DIRECTOR COLLEGE) CARDIOLIPIN AB IGG <2.0 <20.0 GPL 2023 3:37 AM DIRECTOR COLLEGE [employer] ABIGAIL BARRAZA Comment: U/mL Value Interpretation ----- < 20.0 Antibody not detected > or = 20.0 Antibody detected CARDIOLIPIN AB IGA <2.0 <20.0 APL 2023 3:37 AM [facility] BARRA[facility] Comment: U/mL Value Interpretation ----- < 20.0 Antibody not detected > or = 20.0 Antibody detected CARDIOLIPIN AB IGM 2.0 <20.0 MPL 2023 3:37 AM [facility]UD[facility] BARRA[facility] Comment: U/mL Value Interpretation ----- < 20.0 Antibody not detected > or = 20.0 Antibody detected Test Performed by [employer], [employer] [facility], [address] [place] [address] Real Winchester M.D., Ph.D., Director of Laboratories , [place] [id number] APS IGG <9 <=30 U 08/22/2024 3:37 AM [facility]HumanOLSCmedJACKSON BARRAZA Comment: For additional information, please refer to [email or web address]/faq/QXE739 (This link is being provided for informational/ educational purposes only.) APS IGM <9 <=30 U 08/22/2024 3:37 AM [facility]SCmedJACKSON BARRAZA Comment: For additional information, please refer to [email or web address] [place]/faq/UXR474 (This link is being provided for informational/ educational purposes only.) BETA-2 GLYCOPROTEIN I IGA <2.0 <20.0 U/mL 08/22/2024 3:37 AM [facility]OLSCmedJACKSON BARRAZA Comment: Value Interpretation ----- < 20.0 Antibody not detected > or = 20.0 Antibody detected BETA-2 GLYCOPROTEIN I IGM <2.0 <20.0 U/mL 08/22/2024 3:37 AM [facility]JACKSON BARRAZA Comment: Value Interpretation ----- < 20.0 Antibody not detected > or = 20.0 Antibody detected BETA-2 GLYCOPROTEIN I IGG <2.0 <20.0 U/mL 08/22/2024 3:37 AM DIRECTOR COLLEGE [employer] ABIGAIL BARRAZA Comment: Value Interpretation ----- < 20.0 Antibody not detected > or = 20.0 Antibody detected INTERPRETATION REPORT 08/22/2024 3:37 AM DIRECTOR COLLEGE [employer] ABIGAIL BARRAZA Comment: The antiphospholipid antibody syndrome (APS) is a clinical-pathologic correlation that includes a clinical event (e.g. arterial or venous thrombosis, morbidity) and persistent positive anti- phospholipid antibodies (IgM, IgG Cardiolipin or b2GPI antibodies greater than the 99th percentile; or a lupus anticoagulant). International consensus guidelines for APS suggest waiting at least 12 weeks before retesting to confirm antibody persistence. The Systemic Lupus International Collaborating Clinics immunological classification criteria for systemic lupus erythema- tosus (SLE) include testing for isotype IgA, which has yet to be incorporated into APS criteria. Low level antiphospholipid antibodies may sometimes be detected in the setting of infection, drug therapy or aging. For additional information, please refer to http://education.[employer]ures.com/faq/ICX323 (This link is being provided for informational/ educational purposes only.) 08/16/2024 12:1 1 PM DIRECTOR COLLEGE Maik Brock Parks DO LABORATORY Final Result [employer] [facility] [address] [place] [address], * PROTHROMBIN GENE MUTATION (08/16/2024 12:11 PM DIRECTOR COLLEGE) [facility] PROTHROMBIN GENE MUTATION NEGATIVE 08/23/2024 5:57 PM DIRECTOR COLLEGE [employer] ABIGAIL BARRAZA Comment: RESULT: [id number] VARIANT NOT DETECTED INTERPRETATION REPORT 08/23/2024 5:57 PM DIRECTOR COLLEGE [employer] ABIG[facility] BARRA[facility] Comment: INTERPRETATION: This individual is negative (normal) for the [id number] variant in the Prothrombin/Factor II gene. Increased risk of thrombophilia can be caused by a variety of genetic and non-genetic factors not screened for by this assay. Laboratory testing supervised and results monitored by Korey Chatman, Ph.D., [facility], [facility]. The Q29053J mutation [[id number]: g.32536T>A (c.*97G>A)] in the Prothrombin/Factor II gene is the second most common inherited risk factor for thrombosis occurring in approximately 2% of Caucasians. Presence of the mutation is associated with an elevation of prothrombin levels to about 30% above normal in heterozygotes and to 70% above normal in homozygotes. Prothrombin (T38767V) mutations are detected by amplification of their selected gene regions by polymerase chain reaction (PCR) and fluorescent probe hybridization to the targeted region, followed by melting curve analysis with a real time PCR system. Although rare, false positive or false negative results may occur. All results should be interpreted in context of clinical findings, relevant history, and other laboratory data. Health care providers, please contact your local [employer]' genetic counselor or call [phone] ([phone]) for assistance with interpretation of these results. This test was developed and its analytical performance characteristics have been determined by [facility]. It has not been cleared or approved by the FDA. This assay has been validated pursuant to the CLIA regulations and is used for clinical purposes. Test performed by [employer] [place] [address] [place] [address] Appliance Counselor: Selin Cabrera MD,PHD,DONAL Test Reported by [facility], [employer] [facility], [address] [place], [place] Real Winchester M.D., Ph.D., Director of Laboratories , CLIA [id number] 08/16/2024 12:1 1 PM DIRECTOR COLLEGE us Maik B Parks DO LABORATORY Final Result [employer] [address] [place] [address], * FACTOR V LEIDEN MUTATION (08/16/2024 12:11 PM DIRECTOR COLLEGE) [facility] Signature FACTOR V LEIDEN NEGATIVE 8:49 PM DIRECTOR COLLEGE [facility] ABIGAIL BARRAZA Comment: FACTOR V LEIDEN (R506Q) VARIANT NOT DETECTED INTERPRETATION REPORT 08/23/2024 8:49 PM DIRECTOR COLLEGE [facility] ABIGAIL BARRAZA Comment: INTERPRETATION: This individual is negative (normal) for the Factor V Leiden (R506Q) variant in the Factor V gene. Increased risk of thrombophilia can be caused by a variety of genetic and non-genetic factors not screened for by this assay. Laboratory testing supervised and results monitored by Korey Chatman, Ph.D., [facility], [facility]. VARIANT ANALYSIS: The Factor V Leiden (R506Q) variant [[id number]:c.1601G>A (p.R534Q)] in the Factor V gene is one of the most common causes of inherited thrombophilia. This variant causes resistance to degradation of activated Factor V protein by activated Protein C (APC). The Factor V Leiden (R506Q) variant is detected by amplification of the selected region of the Factor V gene by polymerase chain reaction (PCR) and fluorescent probe hybridization to the targeted region, followed by end-point analysis with a real time PCR system. Although rare, false positive or false negative results may occur. All results should be interpreted in context of clinical findings, relevant history, and other laboratory data. Health care providers, please contact your local [employer] genetic counselor or call [employer] ([phone]) for assistance with interpretation of these results. This test was developed and its analytical performance characteristics have been determined by [facility]. It has not been cleared or approved by the FDA. This assay has been validated pursuant to the CLIA regulations and is used for clinical purposes. Test performed by [employer] [address] [facility] [place] [address] Appliance Counselor: Selin Cabrera MD,PHD,DONAL Test Reported by [facility], [employer] [facility], [address] [place], [place] Real Winchester M.D., Ph.D., Director of Laboratories , [place] [id number] 08/16/2024 12:1 1 PM DIRECTOR COLLEGE Maik Parks LABORATORY Final Result [employer] [place] [id number] [place], [place] , [place] [phone] * (ABNORMAL) PARTIAL THROMBOPLASTIN TIME,PTT (08/16/2024 7:22 AM DIRECTOR COLLEGE) PTT 75.7(H) 25.1 - 36.5 SEC 08/16/2024 7:48 AM DIRECTOR COLLEGE [facility] 08/16/2024 7:22 AM DIRECTOR COLLEGE Jose Garza MD LABORATORY Final Result Performing Organization Address City/[facility]/ZIP Co de Phone Number [facility] [address] [place] [address], [phone] * FLEX SIG GENERIC (08/15/2024 1:07 PM DIRECTOR COLLEGE) Melani Foreman MD [facility] Final Result from Last 3 Months or Most Recently Relevant to Health Maintenance Insurance MEDICARE [employer] Advance Directives * Full Code (Latest Code Status on File) Date Activated Date Inactivated Comments 08/14/2024 5:33 AM 08/17/2024 3:15 PM Care Teams Substation Operator Conversion Relationship Specialty Start Date End Date Petey Vasquez MD [address] [place] [address] PCP - General FAMILY PRACTICE 08/26/24
--- OUTSIDE RECORDS SUMMARY | 2024-11-14 13:32 | XMS_ITS | Encounter Summary ---
Author Organization [facility] Address [address] [place] [address] Care Team Providers Care Glass Finisher Name Role Phone Petey Vasquez MD Primary Care Provider [phone] Encounter Details Date Type Department Care Team (Late Contact Info) Description 11/13/2024 External Device Data [facility] ABSTRACTION Provider, Abstract NO ADDRESS ON FILE Social History Tobacco Use Types Packs/Day Years Used Date Smoking Tobacco: Former Feeling Safe Answer Date Recorded Are you in a relationship wi th someone who hurts you emotionally and/or physically? No 09/07/2024 Food Insecurity Answer Date Recorded Social/Environmental Concerns No concerns Transportation Needs Answer Date Record ed Social/Environmental Concerns No concerns Housing Stability Answer Date Recorded Social/Environmental Concerns No concerns Utility Needs Answer Date Recorded Social/Environmental Concerns No concerns Comments No Sex and Gender Information Value Date Recorded Sex Assigned at Female 09/22/2024 11:47 PM UNDERGROUND DRILL OPERATOR Legal Sex Female 7:23 AM CDT Gender Identity Female 09/22/2024 11:47 PM UNDERGROUND DRILL OPERATOR Sexual Orientation Straight 09/22/2024 11 :47 PM UNDERGROUND DRILL OPERATOR documented as of this encounter Plan of Treatment Upcoming Encounters Date Type Department Care Team (Late Contact Info) Description 11/27/2024 4:30 PM CDT Telephone Check Up [facility] Oncology and Hematology - Bob [address] [facility] [address] [place] [address] Kerwin Londono MD [address] [facility] [address] [place] [address] documented as of this encounter Visit Diagnoses Not on filedocumented in this encounter Care Teams Glass Finisher Relationship Specialty Start Date End Date Petey Vasquez MD [address] [facility] [address] [place] [address] PCP - General Family Practice 11/12/24 documented as of this encounter
--- OUTSIDE RECORDS SUMMARY | 2024-11-14 13:32 | XMS_ITS | Encounter Summary ---
Author Organization [facility] Address [address] [place] [address] Care Team Providers Care Head Of Transport Logistics Name Role Phone Maureen Roman MD Primary Care Provider [phone] Petey Vasquez MD Primary Care Provider [phone] Encounter Details Date Type Department Care Team (Late st Contact Info) Description 08/19/2024 Hospital Follow-up Call [facility] Unit [address] [place] [address] Coby Martinez RN Social History Tobacco Use Types Packs/Day Years Used Date Smoking Tobacco: Former Cigarettes 0.1 11 1 972 - 1982 Smokeless Tobacco: Never Alcohol Use Standard Drinks/Week Comments Not Currently 0 (1 standard drink = 0.6 oz pur e alcohol) [facility] Utilities Answer Date Recorded In the past 12 months has [facility] [employer], gas, oil, or water [employer] threatened to shut off services in your [...] any time in the past 12 m [facility], were you homeless or living in a senior care (including now)? No 08/14/2024 Comments No Sex and Gender Information Value Date Recorded Sex Assigned at Not on file Legal Sex Female 8:11 PM CDT Gender Identity Not on file Sexual Orientation Not on file documented as of this encounter Functional Status * Are you deaf or do you have serious difficulty hearing Answer Date of Assessment Author Status No 08/14/2024 5:00 AM Jarrod Richter RN Active * Are you blind or do you have serious difficulty seeing, even when wearing glasses? Answer Date of Assessment Author Status No 08/14/2024 5:00 AM Jarrod Richter RN Active * Do you have serious difficulty walking or climbing stairs? Answer Date of Assessment Author Status No 08/14/2024 5:00 AM Jarrod Richter RN Active * Do you have difficulty dressing or bathing? Answer Date of Assessment Author Status No 08/14/2024 5:00 AM Jarrod Richter, ROSELYN Active * Because of a physical, mental, or emotional condition, do you have difficulty doing errands alone such as visiting a doctor's office or shopping? Answer Date of Assessment Author Status No 08/14/2024 5:00 AM Jarrod Richter RN Active documented as of this encounter Mental Status * Because of a physical, mental, or emotional condition, do you have serious difficulty concentrating, remembering, or making decisions? Answer Entry Date Author Status No 08/14/2024 5:00 AM Jarrod Richter RN Active documented in this encounter Plan of Treatment Not on file documented as of this encounter Visit Diagnoses Not on filedocumented in this encounter Care Teams Head Of Transport Logistics Relationship Specialty Start Date End Date Maureen Roman MD [address] [facility] [address] [place] [address] PCP - General FAMILY PRACTICE 08/14/24 08/25/24 Petey Vasquez MD [address] [facility] [address] [place] [address] PCP - General FAMILY PRACTICE 08/26/24 documented as of this encounter
--- OUTSIDE RECORDS SUMMARY | 2024-11-14 13:32 | XMS_ITS | Continuity of Care Document ---
Author Name [facility] Organization [facility] Care Team Providers Care Mold Tooling Technician Name Role Phone [facility] Unavailable Unavailable Medications Combined list of outpatient medications from Department of Defense and Veterans Affairs facilities.Medications provided include 1) outpatient medications from the last 15 months, and 2) patient-reported medications. Medication Details Route Status Patient Instructions Prescription Expires Prescription Number Last Dispense Date Ordering Provider Order Date Order Qty Source AMOXICILLIN -CLAVULANAT E POTASS (amoxicilli n/potassium clavulanate ), 875-125 MG, TABLET, ORAL, [employer] [place],, 100 ea. BOTTLE Active [id number] 4 2023 6 Pharmac y Data Transac tion Service Facilit y Benzonatate (Woofound) 500 CAPSULE in 1 BOTTLE Active [id number] 02/13/20 2 4 2023 90 Pharmac y Data Transac tion Service Facilit y CIPROFLOXAC IN HCL (CIPROFLOXA JUAN HCL), 500 MG, TABLET, ORAL, [employer], 500 ea. BOTTLE Active [id number] 4 2023 14 Pharmac y Data Transac tion Service Facilit y METOCLOPRAM TULIO HCL (METOCLOPRA MIDE HCL), 5MG, TABLET, ORAL, [facility] ([facility]) [place], 100 ea. BOTTLE Active [id number] 4 2023 90 Pharmac y Data Transac tion Service Facilit y METOPROLOL TARTRATE (metoprolol tartrate), 25 MG, TABLET, ORAL, [employer] 1000 ea. BOTTLE Cancele d [id number] 4 [id number] : 2023 0 Pharmac y Data Transac tion Service Facilit y METRONIDAZO LE (METRONIDAZ OLE), 500MG, TABLET, ORAL, [employer], 100 ea. BOTTLE Active [id number] 4 2023 21 Pharmac y Data Transac tion Service Facilit y NYSTATIN (nystatin), 265503/G, CREAM (G), TOPICAL, [employer], 30 g TUBE Cancele d [id number] 4 [id number] : 2023 0 Pharmac y Data Transac tion Service Facilit y NYSTATIN (nystatin), 485982/G, CREAM (G), TOPICAL, [employer], 30 g TUBE Active [id number] 4 2023 30 Pharmac y Data Transac tion Service Facilit y OMEPRAZOLE (omeprazole ), 20 MG, CAPSULE DR, ORAL, [employer] 1000 ea. BOTTLE Active [id number] 4 2023 90 Pharmac y Data Transac tion Service Facilit y OMEPRAZOLE (omeprazole ), 20 MG, CAPSULE DR, ORAL, [employer], 1000 ea. BOTTLE Active [id number] 4 2023 90 Pharmac y Data Transac tion Service Facilit y Allergies, Adverse Reactions, Alerts Combined list of allergies from Department of Defense and Veterans Affairs facilities. It does not include entries that were removed or entered in error. Substance Category Reaction Severity Reaction type Status Date Reported Comments Source OXYCODONE Drug allergy (disorder) Unknown active 02/18/2015 [facility] [employer] [facility] ([facility]) Immunizations Combined list of available immunizations from the Department of Defense and Veterans Affairs facilities. Immunization Series Date Given Administered By Site Reaction Lot Number CVX Code Drug Managing Partner Status Comments Source COVID-19, mRNA, LNP-S, PF, 100 mcg or 50 mcg dose 2020 TAMIKO, () Not Given COVID-19, mRNA, LNP-S, PF, 100 mcg or 50 mcg dose DoD influenza, high-dose, quadrivalent 2020 TAMIKO, () Not Given influenza , high-dose , quadrival ent DoD COVID-19 vaccine, vector-nr, rS-Ad26, PF, 0.5 mL 2020 ALUL, () Not Given COVID-19 vaccine, vector-nr , rS-Ad26, PF, 0.5 mL DoD COVID-19, mRNA, LNP-S, PF, 30 mcg/0.3 mL dose 2020 ALUL, [employer] (PFR) Not Given COVID-19, mRNA, LNP-S, [...] facilities. Social History Type Response Date Comment Sour e This section is an empty social history section. DoD
--- OUTSIDE RECORDS SUMMARY | 2024-11-14 13:32 | XMS_ITS | Clinical Summary ---
Author Organization [facility] Address [address] [place] [phone] Phone Care Team Providers Care Director Information Name Role Phone Petey Vasquez MD Primary Care Provider [phone] Allergies Active Allergy Reactions Criticality Noted Date Comments Oxycodone Nausea and Vomiting,Unknown Medium 03/05/20 16 Medications metoprolol tartrate (LOPRESSOR) 25 mg tablet Take 25 mg by mouth daily. Active ezetimibe (ZETIA) 10 mg tablet Take 10 mg by mouth daily. Active enoxaparin (LOVENOX) 120 mg/0.8 mL injection Inject 120 mg by subcutaneous injection every 12 hours. Active alendronate (FOSAMAX) 70 mg tablet Take 70 mg by mouth every 7 days. Patient takes on Wednesdays 3 Active omeprazole (PriLOSEC) 20 mg Capsule, Delayed Release(E.C.) Take 20 mg by mouth daily. 4 Active acetaminophen (TYLENOL) 500 mg tablet Take 2 Tablets (1,000 mg) by mouth every 8 hours. 5 Active calcium as carbonate (TUMS ULTRA) 1,000 mg (400 mg elemental) Tablet, Chewable Take 1 Tablet (400 mg) by mouth every 6 hours as needed for Indigestion. 5 Active famotidine (PEPCID) 20 mg tablet Take 1 Tablet (20 mg) by mouth 2 times daily. 5 Active magnesium oxide (MAG-OX) 400 mg (241.3 mg magnesium) tablet Take 1 Tablet (400 mg) by mouth daily. 5 Active prochlorperazin e maleate (COMPAZINE) 10 mg tablet Take 1 Tablet (10 mg) by mouth every 6 hours as needed for Nausea/Emesis. 5 Active traMADoL (ULTRAM) 50 mg tabletIndicatio ns:Diverticulit is of large intestine with abscess without bleeding Take 1 Tablet (50 mg) by mouth every 4 hours as needed for Pain or Pain, Break-Through. 5 Active ciprofloxacin HCl (CIPRO) 500 mg tablet Take 1 Tablet (500 mg) by mouth 2 times daily. 3 Tablet 5 Active simvastatin (ZOCOR) 20 mg tablet Take 1 Tablet (20 mg) by mouth daily with supper. 5 Active metoclopramide HCl (REGLAN) 10 mg tablet Take 1 Tablet (10 mg) by mouth every 6 hours as needed for Nausea/Emesis. 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 [address] [place] [address] Kerwin Londono MD Chronic anemia (Primary Dx); Acute deep vein thrombosis (DVT) of proximal vein of left lower extremity (CMS/HCC) 10/30/2024 External Device Data STL ABSTRACTION Provider, Abstract 10/17/2024 Telephone [facility] Oncology and Hematology [facility] [address] [facility] [address] [place] [address] Mychart, Generic Provider Presidential Support Specialist 10/15/2024 External Device Data STL ABSTRACTION Provider, Abstract 10/11/2024 Hospital Encounter [facility] Operating Room [address] [place] [address] Phan Self MD Non-healing surgical wound, initial encounter 10/10/2024 Telephone [facility] Surgical Spec [place] [id number] [facility] [address] [place] [phone] Phan Self MD Surgery 10/09/2024 External Device Data STL ABSTRACTION Provider, Abstract 10/09/2024 Abstract [facility] [id number] [facility] [address] [place] [address] Carolina Martinez, RN 10/09/2024 Abstract [facility] [id number] [facility] [address] [place] [address] Carolina Martinez, RN 10/08/2024 9:15 AM SCRIPT ARTIST Office Visit [facility] [id number] [facility] [address] [place] [address] Phan Self MD Colostomy status (CMS/HCC) (Primary Dx); Diverticulitis of large intestine with abscess without bleeding 10/08/2024 External Device Data STL ABSTRACTION Provider, Abstract 10/08/2024 External Device Data STL ABSTRACTION Provider, Abstract 10/08/2024 Prep for Surgery [facility] [place] [id number] [facility] [address] [place] [address] Carolina Martinez, RN 10/08/2024 Prep for Surgery [facility] [id number] [place] [address] Carolina Martinez, RN 10/07/2024 Abstract [facility] [id number] [facility] [address] [place] [id number] Carolina Martinez, ROSELYN 10/04/2024 9:52 AM SCRIPT ARTIST - 10/04/2024 11:59 PM SCRIPT ARTIST Hospital Encounter [facility] CT Scan [address] [place] [address] Belen Sanchez, DO Discharge Disposition: Home or Self Care 10/03/2024 External Device Data STL ABSTRACTION Provider, Abstract 10/03/2024 Telephone [facility] [id number] [facility] [address] [place] [phone] Phan Self MD Wound Infection 09/30/2024 Abstract [facility] [id number] [facility] [address] [place] [address] Carolina Martinez, RN 09/25/2024 Telephone [facility] [place] [id number] [facility] [address] [address] Phan Self MD wound care orders 09/19/2024 3:30 PM SCRIPT ARTIST Office Visit [facility] [place] [id number] [place] [address] Phan Self MD Colostomy status (CMS/HCC) (Primary Dx); Diverticulitis of large intestine with abscess without bleeding 09/13/2024 11:30 AM SCRIPT ARTIST - 09/13/2024 11:59 PM SCRIPT ARTIST Hospital Encounter [facility] Emergency Medical [facility] [address] [place] [address] Ambulance, AllysonBelen Osman, Discharge Disposition: Rehab Facility IP 09/07/2024 8:03 AM SCRIPT ARTIST Anesthesia Event [facility] Operating Room [address] [place] [address] Kannan Braga MD 09/07/2024 7:14 AM SCRIPT ARTIST - 09/07/2024 1:25 PM SCRIPT ARTIST Surgery [facility] Operating Room [address] [place] [address] Phan Self MD COLON SIGMOID RESECTION 09/03/2024 3:04 AM SCRIPT ARTIST - 09/13/2024 9:59 PM SCRIPT ARTIST Hospital Encounter [facility] Care Unit [address] [place] [address] Magdi Khan MD McClintock, Andrew, MD Goering, MD Laura Ontiveros Jennifer E, DO Acute abscess of female pelvis Discharge Disposition: Rehab Facility IP 08/27/2024 External Device Data STL ABSTRACTION Provider, Abstract 08/27/2024 Travel 08/23/2024 2:27 PM SCRIPT ARTIST Anesthesia Event [facility] GI Lab [facility] [address] [place] [address] Noel Mendiola MD 08/23/2024 2:00 PM SCRIPT ARTIST - 08/23/2024 2:40 PM SCRIPT ARTIST Surgery [facility] GI [facility] [address] [place] [address] Raman Bailey MD SIGMOIDOSCOPY FLEXIBLE 08/20/2024 3:44 PM SCRIPT ARTIST - 08/27/2024 5:33 PM SCRIPT ARTIST Hospital Encounter [facility] Medicine [address] [place] [address] Tena Ortega MD Jeliazkova, Iana, MD Muhammud, MD Dexter Delatorre, Silvana Thorne MD IVC thrombosis ([facility]) Discharge Disposition: Home Health Care Svc from Last 3 Months Family History Medical History Relation Name Comments No Known Problems Brother 1 No Known Problems Brother 2 Diabetes Child 1 No Known Problems Child 2 No Known Problems Father No Known Problems Mother No Known Problems Sister Blood Clots Neg Hx Relation Name Status Comments Brother 1 Brother 2 Child 1 Alive Child 2 Alive Father Mother Sister Social History Tobacco Use Types Packs/Day Years Used Date Smoking Tobacco: Former Tobacco Cessation:Counseling Given: Not Answered Feeling Safe Answer Date Recorded Are you [...] Sex Assigned at Female 09/22/2024 11:47 PM SCRIPT ARTIST Legal Sex Female 7:23 AM CDT Gender Identity Female 09/22/2024 11:47 PM SCRIPT ARTIST Sexual Orientation Straight 09/22/2024 11 :47 PM SCRIPT ARTIST Last Filed Vital Signs Vital Sign Reading Time Taken Comments Blood Pressure 80/46 11/12/2024 3:09 PM SCRIPT ARTIST Pulse 72 11/12/2024 3:01 PM SCRIPT ARTIST Temperature 36.9 C (98.4 F) 11/12/2024 3:01 PM SCRIPT ARTIST Respiratory Rate 15 11/12/2024 3:01 PM SCRIPT ARTIST Oxygen Saturation 96% 11/12/2024 3:01 PM SCRIPT ARTIST Inhaled Oxygen Concentration - - Weight 106.5 kg (234 lb 12.8 oz) 11/12/2024 3:01 PM SCRIPT ARTIST Height 170.2 cm (5' 7 ) 11/12/2024 3:01 PM SCRIPT ARTIST Body Mass Index 36.77 11/12/2024 3:01 PM SCRIPT ARTIST Plan of Treatment Upcoming Encounters Date Type Department Care Team (Late st Contact Info) Description 11/27/2024 4:30 PM CDT Telephone Check Up [facility] Oncology and Hematology - Bob [address] [facility] [address] [place] [address] Kerwin Londono MD [address] [facility] [address] [place] [address] Health Maintenance Due Date Last Done Comments Pre-Diabetes and Diabetes Screening 1954 DTAP/TDAP/TD VACCINES (1 - Tdap) 1973 Traditional Medicare (ACO) A nnual Wellness Visit 1973 BREAST CANCER SCREENING 1994 FIT-DNA Q 3 years 1999 FIT/FOBT Q 1 year 1999 PNEUMOCOCCAL VACCINE 50+ YEA RS (1 of 1 - PCV) 2004 ZOSTER VACCINE (1 of 2) 2004 RSV VACCINE (60+ or ) (1 - Risk 60-74 years 1-dose series) 2014 OSTEOPOROSIS SCREENING 2019 INFLUENZA VACCINE (#1) 2024 Flex Sig/CT Colonography Q 5 years 08/23/20292023, 08/15/2024 COLORECTAL SCREENING 08/15/2034 08/15/2024 Colorectal Cancer Screening 08/15/2034 Medical Devices Implanted Type Area Silica Mixer Operator Device Identifier Shelf Expiration Date Model / Serial / Lot Barrier Seprafilm 5x6in [id number] - [id number] Implanted:Q ty: 1 on 09/07/2024 by Phan Self MD at [facility] Adhesion Barrier N/A: Abdomen [employer] 06/26/2026 [id number] / / [id number] Clip Endo Mantis 2.8mm 235cm [id number] - [id number] Implanted:Q ty: 1 on 08/23/2024 by Raman Bailey MD at [facility] Clip N/A: Perianal [employer] [id number] 02/22/2027 [id number] / / [id number] Clip Endo Mantis 2.8mm 235cm [id number] - [id number] Implanted:Q ty: 1 on 08/23/2024 by Raman Bailey MD at [facility] Clip N/A: Perianal [employer] PH[employer] [id number] 02/22/2027 [id number] / / [id number] Stent Colonic [id number] - [id number] Implanted:Q ty: 1 on 08/23/2024 by Raman Bailey MD at [facility] Stent N/A: Perianal [employer] PHI [id number] 03/27/2026 [id number] / / [id number] Ivc Filter-08/12 Implanted:Q ty: 1 on 09/06/2024 by Dick Zelaya MD Inferior Vena Cava 06/10/2027 [id number] / / [id number] Description:Jennie IVC Filte r implanted on 09/06/[address] Zelaya Procedures Procedure Name Priority Date/Time Associated Diagnosis Comments CT ABDOMEN PELVIS W CONTRAST Routine 10/04/2024 10:20 AM SCRIPT ARTIST IVC thrombosis (CMS/HCC) TELEMETRY REPORT 09/21/2024 3:56 PM SCRIPT ARTIST CBC WITHOUT DIFFERENTIAL Routine 09/13/2024 12:43 AM SCRIPT ARTIST PHOSPHORUS Routine 09/13/2024 12:43 AM SCRIPT ARTIST MAGNESIUM LEVEL Routine 09/13/2024 12:43 AM SCRIPT ARTIST BASIC METABOLIC PANEL Routine 09/13/2024 12:43 AM SCRIPT ARTIST CBC WITHOUT DIFFERENTIAL Routine 09/12/2024 4:24 AM SCRIPT ARTIST PHOSPHORUS Routine 09/12/2024 4:24 AM SCRIPT ARTIST MAGNESIUM LEVEL Routine 09/12/2024 4:24 AM SCRIPT ARTIST BASIC METABOLIC PANEL Routine 09/12/2024 4:24 AM SCRIPT ARTIST PHOSPHORUS Routine 09/11/2024 3:39 AM SCRIPT ARTIST MAGNESIUM LEVEL Routine 09/11/2024 3:39 AM SCRIPT ARTIST BASIC METABOLIC PANEL Routine 09/11/2024 3:39 AM SCRIPT ARTIST CBC WITH DIFFERENTIAL Routine 09/11/2024 3:39 AM SCRIPT ARTIST CALCIUM IONIZED Routine 09/10/2024 1:31 AM SCRIPT ARTIST PHOSPHORUS Routine 09/10/2024 1:31 AM SCRIPT ARTIST MAGNESIUM LEVEL Routine 09/10/2024 1:31 AM SCRIPT ARTIST BASIC METABOLIC PANEL Routine 09/10/2024 1:31 AM SCRIPT ARTIST CBC WITH DIFFERENTIAL Routine 09/10/2024 1:31 AM SCRIPT ARTIST POC GLUCOSE Routine 09/09/2024 10:11 PM SCRIPT ARTIST PHOSPHORUS Routine 09/09/2024 5:45 PM SCRIPT ARTIST MAGNESIUM LEVEL Routine 09/09/2024 5:45 PM SCRIPT ARTIST BASIC METABOLIC PANEL Routine 09/09/2024 5:45 PM SCRIPT ARTIST PHOSPHORUS Routine 09/09/2024 2:38 AM SCRIPT ARTIST MAGNESIUM LEVEL Routine 09/09/2024 2:38 AM SCRIPT ARTIST BASIC METABOLIC PANEL Routine 09/09/2024 2:38 AM SCRIPT ARTIST CBC WITH DIFFERENTIAL Routine 09/09/2024 2:38 AM SCRIPT ARTIST PHOSPHORUS Routine 09/08/2024 3:58 PM SCRIPT ARTIST MAGNESIUM LEVEL Routine 09/08/2024 3:58 PM SCRIPT ARTIST BASIC METABOLIC PANEL Routine 09/08/2024 3:58 PM SCRIPT ARTIST PHOSPHORUS Routine 09/08/2024 1:13 AM SCRIPT ARTIST MAGNESIUM LEVEL Routine 09/08/2024 1:13 AM SCRIPT ARTIST BASIC METABOLIC PANEL Routine 09/08/2024 1:13 AM SCRIPT ARTIST CBC WITH DIFFERENTIAL Routine 09/08/2024 1:13 AM SCRIPT ARTIST BASIC METABOLIC PANEL Routine 09/07/2024 3:55 PM SCRIPT ARTIST PATHOLOGY Pathology 09/07/2024 9:36 AM SCRIPT ARTIST ID ANES INSERT ENDOTRACHEAL AIRWAY Routine 09/07/2024 8:15 AM SCRIPT ARTIST ID ANESTHESIA BLOCK PB PLACEHOLDER CHARGE Routine 09/07/2024 7:37 AM SCRIPT ARTIST SMALL BOWEL RESECTION 09/07/2024 7:14 AM SCRIPT ARTIST COLOSTOMY 09/07/2024 7:14 AM SCRIPT ARTIST ID COLECTOMY PARTIAL W/ANASTOMOSIS 09/07/2024 7:14 AM SCRIPT ARTIST ID CYSTO W/INSERT URETERAL STENT 09/07/2024 7:14 AM SCRIPT ARTIST BASIC METABOLIC PANEL Routine 09/07/2024 1:59 AM SCRIPT ARTIST PHOSPHORUS Routine 09/07/2024 1:59 AM SCRIPT ARTIST Sigmoid diverticulitis MAGNESIUM LEVEL Routine 09/07/2024 1:59 AM SCRIPT ARTIST Sigmoid diverticulitis CBC WITH DIFFERENTIAL Routine 09/07/2024 1:59 AM SCRIPT ARTIST BASIC METABOLIC PANEL Routine 09/06/2024 3:30 PM SCRIPT ARTIST IR IVC FILTER Routine 09/06/2024 1:38 PM SCRIPT ARTIST LMW HEPARIN ACTIVITY Timed Study 09/06/2024 10:20 AM SCRIPT ARTIST XR ABDOMEN FOR FEEDING TUBE 1 VW Stat 09/06/2024 5:54 AM SCRIPT ARTIST POC GLUCOSE Routine 09/06/2024 5:50 AM SCRIPT ARTIST PHOSPHORUS Routine 09/06/2024 5:16 AM SCRIPT ARTIST Sigmoid diverticulitis MAGNESIUM LEVEL Routine 09/06/2024 5:16 AM SCRIPT ARTIST Sigmoid diverticulitis BASIC METABOLIC PANEL Routine 09/06/2024 5:16 AM SCRIPT ARTIST Diverticulitis of large intestine with abscess without bleeding CBC WITH DIFFERENTIAL Routine 09/06/2024 5:16 AM SCRIPT ARTIST POC GLUCOSE Routine 09/06/2024 1:[address] ABDOMEN PELVIS W CONTRAST Routine 09/05/2024 10:37 PM SCRIPT ARTIST XR ABDOMEN FOR FEEDING TUBE 1 VW Stat 09/05/2024 5:20 PM SCRIPT ARTIST PHOSPHORUS Routine 09/05/2024 2:11 AM SCRIPT ARTIST Diverticulitis of large intestine with abscess without bleeding Sigmoid diverticulitis MAGNESIUM LEVEL Routine 09/05/2024 2:11 AM SCRIPT ARTIST Diverticulitis of large intestine with abscess without bleeding Sigmoid diverticulitis BASIC METABOLIC PANEL Routine 09/05/2024 2:11 AM SCRIPT ARTIST CBC WITH DIFFERENTIAL Routine 09/05/2024 2:11 AM SCRIPT ARTIST LMW HEPARIN ACTIVITY Timed Study 09/04/2024 9:45 PM SCRIPT ARTIST URINALYSIS W/REFLEX MICROSCOPIC Routine 09/04/2024 12:43 PM SCRIPT ARTIST BASIC METABOLIC PANEL Routine 09/04/2024 1:51 AM SCRIPT ARTIST CBC WITH DIFFERENTIAL Routine 09/04/2024 1:51 AM SCRIPT ARTIST POTASSIUM LEVEL Routine 09/03/2024 9:20 PM SCRIPT ARTIST MAGNESIUM LEVEL Routine 09/03/2024 1:23 PM SCRIPT ARTIST BASIC METABOLIC PANEL Timed Study 09/03/2024 1:23 PM SCRIPT ARTIST POC GLUCOSE Routine 09/03/2024 8:52 AM SCRIPT ARTIST EKG 12-LEAD Routine 09/03/2024 6:13 AM SCRIPT ARTIST LACTIC ACID Stat 09/03/2024 5:58 AM SCRIPT ARTIST C-REACTIVE PROTEIN Stat 09/03/2024 5: 58 AM SCRIPT ARTIST PHOSPHORUS Stat 09/03/2024 5:58 AM SCRIPT ARTIST MAGNESIUM LEVEL Stat 09/03/2024 5:58 AM SCRIPT ARTIST COMPREHENSIVE METABOLIC PANEL Stat 09/03/2024 5:58 AM SCRIPT ARTIST CBC WITH DIFFERENTIAL Stat 09/03/2024 5:58 AM SCRIPT ARTIST BLOOD CULTURE Routine 09/03/2024 5:58 AM SCRIPT ARTIST BLOOD CULTURE Routine 09/03/2024 5:58 AM SCRIPT ARTIST BLOOD CULTURE Routine 09/03/2024 5:48 AM SCRIPT ARTIST BLOOD CULTURE Routine 09/03/2024 5:48 AM SCRIPT ARTIST PROTIME-INR Stat 09/03/2024 5:[address] ABDOMEN PELVIS W CONTRAST Routine 08/26/2024 2:32 PM SCRIPT ARTIST CREATININE Routine 08/25/2024 7:06 AM SCRIPT ARTIST CBC WITHOUT DIFFERENTIAL Routine 08/25/2024 7:06 AM SCRIPT ARTIST LMW HEPARIN ACTIVITY Timed Study 08/24/2024 1:43 AM SCRIPT ARTIST FLEXIBLE SIGMOIDOSCOPY REPORT 08/23/2024 4:22 PM SCRIPT ARTIST XR FLUORO LESS THAN 1 HOUR Routine 08/23/2024 3:27 PM SCRIPT ARTIST ID ANES INSERT ENDOTRACHEAL AIRWAY Routine 08/23/2024 2:34 PM SCRIPT ARTIST SIGMOIDOSCOPY FLEXIBLE 08/23/2024 2:00 PM SCRIPT ARTIST XR ABDOMEN FOR FEEDING TUBE 1 VW Stat 08/23/2024 1:43 PM SCRIPT ARTIST XR ABDOMEN FOR FEEDING TUBE 1 VW Stat 08/23/2024 12:25 PM SCRIPT ARTIST CBC WITH DIFFERENTIAL Routine 08/23/2024 3:13 AM SCRIPT ARTIST BASIC METABOLIC PANEL Routine 08/23/2024 3:13 AM SCRIPT ARTIST C. DIFFICILE DETECTION Routine 08/22/2024 5:44 PM SCRIPT ARTIST LMW HEPARIN ACTIVITY Timed Study 08/22/2024 1:12 PM SCRIPT ARTIST CBC WITH DIFFERENTIAL Routine 08/22/2024 3:36 AM SCRIPT ARTIST BASIC METABOLIC PANEL Routine 08/22/2024 3:36 AM SCRIPT ARTIST XR ENEMA WATER SOLUBLE Routine 08/21/2024 2:21 PM SCRIPT ARTIST C-REACTIVE PROTEIN Routine 08/21/2024 4: 16 AM SCRIPT ARTIST COMPREHENSIVE METABOLIC PANEL Routine 08/21/2024 4:16 AM SCRIPT ARTIST CBC WITH DIFFERENTIAL Routine 08/21/2024 4:16 AM SCRIPT ARTIST URINALYSIS W/REFLEX MICROSCOPIC Routine 08/20/2024 10:44 PM SCRIPT ARTIST BASIC METABOLIC PANEL Routine 08/20/2024 9:50 PM SCRIPT ARTIST from Last 3 Months Results * CT ABDOMEN PELVIS W CONTRAST (10/04/2024 10:20 AM SCRIPT ARTIST) Only the most recent of3 resultswithin the time period is included. Anatomical Region Laterality Modality Abdomen Computed Tomogra phy 10/04/2024 11:2 0 AM SCRIPT ARTIST Impressions 10/04/2024 1:21 PM SCRIPT ARTIST IMPRESSION: 1. Infrarenal IVC filter is present. Nonocclusive thrombus is present within the IVC filter, similar in appearance to the prior exam. 2. Interval descending and sigmoid colectomy with left abdominal colostomy and partial small bowel resection. Small low-density collection containing a gas locule posterior to the small bowel anastomosis measuring 2.1 x 1.2 cm. Additional small low-density collection with gas locules in the anterior abdominal wall measuring 2.8 x 1.0 x 3.9 cm. Small abscesses are not excluded. No drainable abscess. DICTATION LOCATION: Location [address] [place] [address] 10/04/2024 1:21 PM SCRIPT ARTIST EXAMINATION: Computed tomography of the abdomen and pelvis with intravenous contrast DATE: 10/04/2024 10:20 AM HISTORY: ivc filter check. IVC thrombosis (CMS/HCC). TECHNIQUE: Computed tomography of the abdomen and pelvis was performed following the uneventful administration of IOPAMIDOL 61 % INTRAVENOUS SOLUTION (MULTI-DOSE BULK PACK) Given:100 mL contrast according to standard protocol. The examination was performed with the adjustment of mA according to the patient size and/or the use of Iterative Reconstruction Technique. COMPARISON: 09/05/2024 FINDINGS: LOWER CHEST: Mild bibasilar atelectasis. LIVER: Within normal limits GALLBLADDER: Within normal limits. BILE DUCTS: Within normal limits. PANCREAS: Within normal limits. SPLEEN: Within normal limits. ADRENALS: Within normal limits. KIDNEYS/URETERS: 3 mm nonobstructing left inferior renal pole calculus. Otherwise normal. BLADDER: Within normal limits. REPRODUCTIVE ORGANS: Within normal limits. BOWEL: Interval descending and sigmoid colectomy with left abdominal colostomy. Partial small bowel resection and anastomosis are noted in the right abdomen. No evidence of bowel obstruction or acute bowel inflammation. Small low-density collection containing a gas locule posterior to the small bowel anastomosis measures 2.1 x 1.2 cm transaxially. Mild adjacent fat stranding. The appendix is not visible; however, no right lower quadrant inflammatory changes are present. Moderate size hiatal hernia. PERITONEUM/RETROPERITONEUM: No free intraperitoneal fluid. No significant lymphadenopathy. VESSELS: Atherosclerosis. Infrarenal IVC filter is present. Nonocclusive thrombus is present within the filter, similar in appearance to the prior exam. ABDOMINAL WALL: Small low-density collection containing gas locules in the anterior abdominal wall measuring 2.8 x 1.0 x 3.9 cm. Additional more ill-defined gas locules in the anterior abdominal incision. BONES: Spinal degenerative changes. Procedure Note Sixto Horton MD - 10/04/2024 EXAMINATION: Computed tomography of the abdomen and pelvis with intravenous contrast DATE: 10/04/2024 10:20 AM HISTORY: ivc filter check. IVC thrombosis (CMS/HCC). TECHNIQUE: Computed tomography of the abdomen and pelvis was performed following the uneventful administration of IOPAMIDOL 61 % INTRAVENOUS SOLUTION (MULTI-DOSE BULK PACK) Given:100 mL contrast according to standard protocol. The examination was performed with the adjustment of mA according to the patient size and/or the use of Iterative Reconstruction Technique. COMPARISON: 09/05/2024 FINDINGS: LOWER CHEST: Mild bibasilar atelectasis. LIVER: Within normal limits GALLBLADDER: Within normal limits. BILE DUCTS: Within normal limits. PANCREAS: Within normal limits. SPLEEN: Within normal limits. ADRENALS: Within normal limits. KIDNEYS/URETERS: 3 mm nonobstructing left inferior renal pole calculus. Otherwise normal. BLADDER: Within normal limits. REPRODUCTIVE ORGANS: Within normal limits. BOWEL: Interval descending and sigmoid colectomy with left abdominal colostomy. Partial small bowel resection and anastomosis are noted in the right abdomen. No evidence of bowel obstruction or acute bowel inflammation. Small low-density collection containing a gas locule posterior to the small bowel anastomosis measures 2.1 x 1.2 cm transaxially. Mild adjacent fat stranding. The appendix is not visible; however, no right lower quadrant inflammatory changes are present. Moderate size hiatal hernia. PERITONEUM/RETROPERITONEUM: No free intraperitoneal fluid. No significant lymphadenopathy. VESSELS: Atherosclerosis. Infrarenal IVC filter is present. Nonocclusive thrombus is present within the filter, similar in appearance to the prior exam. ABDOMINAL WALL: Small low-density collection containing gas locules in the anterior abdominal wall measuring 2.8 x 1.0 x 3.9 cm. Additional more ill-defined gas locules in the anterior abdominal incision. BONES: Spinal degenerative changes. IMPRESSION: 1. Infrarenal IVC filter is present. Nonocclusive thrombus is present within the IVC filter, similar in appearance to the prior exam. 2. Interval descending and sigmoid colectomy with left abdominal colostomy and partial small bowel resection. Small low-density collection containing a gas locule posterior to the small bowel anastomosis measuring 2.1 x 1.2 cm. Additional small low-density collection with gas locules in the anterior abdominal wall measuring 2.8 x 1.0 x 3.9 cm. Small abscesses are not excluded. No drainable abscess. DICTATION LOCATION: Location [address] [place] [address] ORDERABLES Final Result * TELEMETRY REPORT (09/21/2024 3:56 PM SCRIPT ARTIST) Provider Scanning ECG ORDERABLES Final Result * (ABNORMAL) CBC WITHOUT DIFFERENTIAL (09/13/2024 12:43 AM SCRIPT ARTIST) Only the most recent of3 resultswithin the time period is included. WBC 13.8(H) 4.0 - 9.8 K/uL 09/13/2024 1:56 AM [facility] [employer] [facility] RBC 2.87(L) 3.90 - 4.90 M/uL 09/13/2024 1:56 AM [facility] [employer] [facility] HEMOGLOBIN 8.3(L) 11.8 - 14.8 g/dL 09/13/2024 1:56 AM [facility] [employer] [facility] HEMATOCRIT 27.5(L) 35.5 - 44.0 % 09/13/2024 1:56 AM [facility] [employer] [facility] MCV 95.8 82.0 - 99.0 fL 09/13/2024 1:56 AM [facility] [employer] [facility] MCH 28.9 27.2 - 32.6 pg 09/13/2024 1:56 AM SCRIPT ARTIST [employer] [facility] MCHC 30.2(L) 31.5 - 35.5 g/dL 09/13/2024 1:56 AM [facility] PLATELETS 388(H) 140 - 350 K/uL 09/13/2024 1:56 AM [facility] MPV 8.8(L) 9.3 - 12.4 fL 09/13/2024 1:56 AM [facility] RDW 14.8(H) 11.5 - 14.5 % 09/13/2024 1:56 AM [facility] RDW-STDEV 51.6(H) 37.1 - 48.7 fL 09/13/2024 1:56 AM [facility] Blood Venipuncture / Unknown 09/13/2024 12:43 AM SCRIPT ARTIST 09/13/2024 1:46 AM SCRIPT ARTIST Belen Sanchez DO HEMATOLOGY ORDERABLES Final Result Performing Organization Address City/[facility]/ZIP Co de Phone Number [facility] CLIA# [id number] [address] [place] [address] * PHOSPHORUS (09/13/2024 12:43 AM SCRIPT ARTIST) Only the most recent of12 resultswithin the time period is included. PHOSPHORUS 3.5 2.5 - 4.5 mg/dL 09/13/2024 2:15 AM [facility] Blood Venipuncture / Unknown 09/13/2024 12:43 AM SCRIPT ARTIST 09/13/2024 1:46 AM SCRIPT ARTIST Belen Sanchez DO CHEMISTRY ORDERABLES F inal Result Performing Organization Address [facility]/ZIP Co de Phone Number [facility] CLIA# [id number] [address] [place] [address] * MAGNESIUM LEVEL (09/13/2024 12:43 AM SCRIPT ARTIST) Only the most recent of13 resultswithin the time period is included. MAGNESIUM 1.9 1.6 - 2.4 mg/dL 09/13/2024 2:15 AM [facility] [employer] [facility] Blood Venipuncture / Unknown 09/13/2024 12:43 AM SCRIPT ARTIST 09/13/2024 1:46 AM SCRIPT ARTIST us Belen Sanchez DO CHEMISTRY ORDERABLES F inal Result [facility] [employer] [facility]# [id number] [address] [facility] [place] [address] * (ABNORMAL) BASIC METABOLIC PANEL (09/13/2024 12:43 AM SCRIPT ARTIST) Only the most recent of18 resultswithin the time period is included. SODIUM 135(L) 136 - 145 mmol/L 09/13/2024 2:15 AM [facility] [employer] [facility] POTASSIUM 3.9 3.5 - 5.0 mmol/L 09/13/2024 2:15 AM [facility] [employer] [facility] CHLORIDE 103 98 - 107 mmol/L 09/13/2024 2:15 AM [facility] [employer] [facility] CO2 23 22 - 29 mmol/L 09/13/2024 2:15 AM [facility] [employer] [facility] CALCIUM 8.4(L) 8.6 - 10.2 mg/dL 09/13/2024 2:15 AM [facility] [employer] [facility] BUN 6(L) 8 - 23 mg/dL 09/13/2024 2:15 AM [facility] [employer] [facility] CREATININE 0.75 0.51 - 0.95 mg/dL 09/13/2024 2:15 AM [facility] [employer] [facility] Comment:The GFR result is no t clinically significant on patients <18 or >70 years of age. GLUCOSE 97 74 - 99 mg/dL 09/13/2024 2:15 AM [facility] [employer] [facility] GFR >60 mL/min/1.7 3 sq meter 09/13/2024 2:15 AM [facility] [employer] [facility] Comment:eGFR calculated with 2020 CKD-EPI equation. Vegetarian diet, extremely high or low muscle mass, and may affect results. Cystatin C with Glomerular Filtration Rate is a suitable alternative for these patients. ANION GAP 9 8 - 16 mmol/L 09/13/2024 2:15 AM [facility] [employer] [facility] Blood Venipuncture / Unknown 09/13/2024 12:43 AM SCRIPT ARTIST 09/13/2024 1:46 AM SCRIPT ARTIST us Belen Sanchez DO CHEMISTRY ORDERABLES F inal Result [facility] [employer] [facility] CLIA# [id number] [address] [facility] [place] [address] * (ABNORMAL) CBC WITH DIFFERENTIAL (09/11/2024 3:39 AM SCRIPT ARTIST) Only the most recent of12 resultswithin the time period is included. WBC 13.3(H) 4.0 - 9.8 K/uL 09/11/2024 4:21 AM [facility] RBC 3.04(L) 3.90 - 4.90 M/uL 09/11/2024 4:21 AM [facility] [employer] [facility] HEMOGLOBIN 9.0(L) 11.8 - 14.8 g/dL 09/11/2024 4:21 AM [facility] HEMATOCRIT 28.4(L) 35.5 - 44.0 % 09/11/2024 4:21 AM [facility] MCV 93.4 82.0 - 99.0 fL 09/11/2024 4:21 AM [facility] [employer] [facility] MCH 29.6 27.2 - 32.6 pg 09/11/2024 4:21 AM [facility] MCHC 31.7 31.5 - 35.5 g/dL 09/11/2024 4:21 AM [facility] RDW 15.0(H) 11.5 - 14.5 % 09/11/2024 4:21 AM [employer] [facility] - . [facility] RDW-STDEV 51.8(H) 37.1 - 48.7 fL 09/11/2024 4:21 AM SCRIPT ARTIST [employer] LABORATORY SERVICES - . [facility] PLATELETS 370(H) 140 - 350 K/uL 09/11/2024 4:21 AM [employer] [facility]ORATORY SERVICES - . [facility] MPV 8.9(L) 9.3 - 12.4 fL 09/11/2024 4:21 AM [employer] [facility] - . [facility] NEUTROPHILS 72 % 09/11/2024 4:21 AM [employer] [facility] - . [facility] LYMPHOCYTES 15 % 09/11/2024 4:21 AM [employer] [facility] - . [facility] MONOCYTES 8 % 09/11/2024 4:21 AM [employer] [facility] EOSINOPHILS 4 % 09/11/2024 4:21 AM [employer] [facility] - . [facility] BASOPHILS 1 % 09/11/2024 4:21 AM [employer] [facility] - . [facility] IMMATURE GRANULOCYTES 1 % 09/11/2024 4:21 AM [employer] [facility] - . [facility] Comment:IG (Immature Granulo cyte) count includes Metamyelocytes, Myelocytes, and Promyelocytes NEUTROPHIL ABSOLUTE 9.53(H) 1.90 - 7.00 K/uL 09/11/2024 4:21 AM [employer] LABORATORY SERVICES [email or web address] LYMPHOCYTE ABSOLUTE 1.95 0.70 - 4.50 K/uL 09/11/2024 4:21 AM [employer] LABORATORY SERVICES - . [facility] MONOCYTE ABSOLUTE 1.11 0.10 - 1.30 K/uL 09/11/2024 4:21 AM [employer] [facility] EOSINOPHIL ABSOLUTE 0.56 0.00 - 0.70 K/uL 09/11/2024 4:21 AM [employer] [facility]ORY SERVICES - . [facility] BASOPHILS ABSOLUTE 0.07 0.00 - 0.20 K/uL 09/11/2024 4:21 AM [employer] [facility]ORATORY SERVICES - . [facility] IMMATURE GRANULOCYTES ABSOLUTE 0.12(H) 0.00 - 0.03 K/uL 09/11/2024 4:21 AM [employer] LABORATORY SERVICES - [facility] Blood Venipuncture / Unknown 09/11/2024 3:39 AM SCRIPT ARTIST 09/11/2024 4:06 AM SCRIPT ARTIST Phan Self MD HEMATOLOGY ORDERABLES Hina l Result Performing Organization Address [facility]/ZIP Co de Phone Number [facility] CLIA# [id number] [address] [place] [address] * (ABNORMAL) CALCIUM IONIZED (09/10/2024 1:31 AM SCRIPT ARTIST) Pathologist [facility] PH, VENOUS 7.38 7.32 - 7.43 09/10/2024 2:19 AM SCRIPT ARTIST [facility] LABORATORY [facility] CALCIUM IONIZED 4.7(L) 4.8 - 5.2 mg/dL 09/10/2024 2:19 AM [facility] Blood Venipuncture / Unknown 09/10/2024 1:31 AM SCRIPT ARTIST 09/10/2024 2:07 AM SCRIPT ARTIST Bj Granado MD CHEMISTRY ORDERABLES Fi nal Result Performing Organization Address [facility] Co de Phone Number [facility] [employer] [facility] CLIA# [id number] [address] [place] [address] * POC GLUCOSE (09/09/2024 10:11 PM SCRIPT ARTIST) Only the most recent of4 resultswithin the time period is included. GLUCOSE POC 94 74 - 99 mg/dL 09/09/2024 10:11 PM SCRIPT ARTIST [facility] LABORATORY [facility] SPECIMEN SOURCE, GLUCOSE POC Whole Blood 09/09/2024 10:11 PM SCRIPT ARTIST [facility] LABORATORY [facility] COMMENT, GLU POC Notified RN/MD 09/09/2024 10:11 PM SCRIPT ARTIST [facility] LABORATORY [facility] Blood, whole 09/09/2024 10:1 1 PM SCRIPT ARTIST 09/09/2024 10:18 PM SCRIPT ARTIST us Bj Granado MD POINT OF CARE TESTING F inal Result [facility]# [id number] [address] [place] [address] * PATHOLOGY (09/07/2024 9:36 AM SCRIPT ARTIST) CASE REPORT Surgical Pathology Report Case: [id number] Authorizing Provider: Phan Self MD Collected: 09/07/2024 09:36 AM Ordering Location: [facility] Received: 09/09/2024 06:38 AM Operating Room Pathologist: Ron Foy MD Specimens: A) - Colon, sigmoid, SIGMOID COLON B) - Small Intestine, SMALL BOWEL C) - Omentum, OMENTUM D) - Colon, COLOSTOMY 1:53 PM SCRIPT ARTIST [facility] FINAL DIAGNOSIS A. Colon, sigmoid, colectomy: -Acute diverticulitis with perforation. -Focal colonic mucosa with ulceration. -Colonic serosa with fibrotic adhesions. -Resection margins appear viable. -Negative for malignancy. -Six lymph nodes, no tumor present (0/6). -predictive maintenance technician consistent with colonic stent, gross examination only. B. Small bowel, resection: -Segment of small bowel with focal perforation, acute serositis and adhesions. -Resection margins appear viable. -Negative for malignancy. C. Omentum, omentectomy: -Fibroadipose tissue with acute serositis and focal reactive mesothelial proliferation. D. Colon, colostomy , excision: -Segment of colonic tissue with acute serositis. -Negative for malignancy. 1:53 PM SCRIPT ARTIST [facility] S DESCRIPTION Four containers are received labeled Guillermina Bonnie . Received in the first container additionally labeled sigmoid colon are 2 segments of colon both received closed with both ends stapled. The first segment is 20.5 cm in length and has 20.5 x 5 x 3 cm of attached mesentery. The serosal surface is remarkable for a 3 cm long area of red-oropeza fibrous adhesions which is 4.5 cm from the closest stapled margin. The remainder the serosal surface is pink-oropeza and glistening. Within the lumen is a wire stent 9.5 cm in length. The stent is adherent to the mucosa. The bowel lumen ranges in circumference from 3.5 cm in the area of the stent to 14 cm towards the stapled margin furthest from the stent and area of stricture. The area of stricture and stent correspond to the serosal adhesions. A transmural defect, 0.6 cm in greatest dimension, is identified within the area of adhesions associated with a diverticulum. The bowel wall in this area has a thickness of 1.5 cm. The remainder of the bowel wall has a thickness of 0.5 cm. The mucosa of the dilated area of the bowel is flattened, and the mucosa in the area of the stent is remarkable for multiple pseudopolyps where the mucosa was trapped within the wire mesh. Multiple diverticula are identified. The attached mesentery is sectioned for lymph nodes. Patented Hogshead Assembler sections of the segment are submitted in cassettes as follows: A1-stapled margin closest to area of adhesions and stent; A2-dilated margins; A3 and A4-transmural defect associated with adhesions and a diverticulum; A5-diverticula from dilated end of bowel; A6 and A7-diverticula and strictured area with stent; A8-potential lymph node. The second segment of bowel is 26.5 cm in length and has 26.5 x 6 x 3.5 cm of attached mesentery. The serosal surface is purple-falcon, smooth, and glistening. The bowel lumen has a uniform circumference of 10 cm, and the wall has a uniform thickness of 0.5 cm. The mucosal surface is pink-falcon and dusky with normal folds. No distinct mucosal lesions are identified. Few diverticula are identified with no transmural defects. No enlarged lymph nodes are identified. [employer] Hogshead As[employer]er sections of the segment are submitted in cassettes as follows: A9 and F40-lpxufbs margins; G58-ideytsjgbdn; D88-nbuhokkof lymph nodes. Received in the second container additionally labeled small bowel is a 5.5 cm long segment of small intestine received closed with both ends stapled. A transmural defect is identified on the serosal surface, 3 cm in length with associated hemorrhage and green-falcon discoloration. The defect is 1.5 cm from the closest stapled margin. The attached mesentery is 6 x 2.5 x 3 cm. The remainder of the serosal surface is purple-falcon and dusky. The bowel wall has a uniform thickness of 0.3 cm. The lumen has a uniform circumference of 6 cm. The mucosal surface is oropeza and velvety with normal folds. No enlarged lymph nodes are identified. Patented Hogshead Assembler sections are submitted in cassettes as follows: B1-stapled margin closest to transmural defect; B2-opposite stapled margin; B3-longitudinal section to include transmural defect. Received in the third container additionally labeled omentum is a 62 x 19 x 2.5 cm piece of yellow lobulated adipose tissue consistent with omentum. Sectioning exhibits unremarkable yellow lobulated adipose tissue. No lesions are identified. Patented Hogshead Assembler sections are submitted in cassettes C1 and C2. Received in the fourth container additionally labeled colostomy is a 3 cm long by 4.5 cm diameter segment of colon with one open end and one stapled end. No skin is definitively identified. The mucosa is pink-oropeza and velvety with normal folds. No distinct lesions are identified. Perpendicular sections of the open end are submitted in cassette D1. An en face section at the stapled end is submitted in cassette D2. KA 4 1:53 PM [facility] MICROSCOPIC DESCRIPTION The slides are labeled [id number] and Guillermina Simpson. Microscopic examination substantiates the above diagnosis. 4 1:53 PM [facility] OPERATIVE PROCEDURE 1: CYSTOURETHROSCOPY URETERAL STENT INSERTION 2: COLON SIGMOID RESECTION 3: COLOSTOMY 4: SMALL BOWEL RESECTION 4 1:53 PM [facility] COMMENT Special stain, immunohistochemical, and/or in situ hybridization results are interpreted with controls that demonstrate appropriate staining reactions. Note on use of immunohistochemistry reagents and in situ hybridization probes: These tests were developed and their performance characteristics determined by [facility], Department of Laboratory Medicine. It has not been cleared or approved by the U.S. Food and Drug Administration. The FDA has determined that such clearance or approval is not necessary. The test is used for clinical purposes. It should not be regarded as investigational or for research. This laboratory is certified to perform high complexity testing. Frozen section/operating room consultation, gross examination and dissection, and case sign out may have been performed in part or completely in the following laboratories: [facility], CLIA #[id number] [address] [place] [address] [facility], [place] #[id number] [address] [place] [address] [facility], CLIA #[id number] [facility] [place] [address] This report was created with the [employer] voice-activated dictation system. Inherent to this system is the possibility of syntax, grammar, punctuation and other errors that could impact the interpretation of the report. If there are interpretative questions about aspects of this report, please contact the performing pathologist. 1:53 PM SCRIPT ARTIST [facility] Tissue SIGMOID COLON STRUCTURE / Unknown Collection / Unknown 09/07/2024 9:36 AM SCRIPT ARTIST 09/09/2024 6:38 AM SCRIPT ARTIST Tissue specimen (specimen) (Small Intestine) Collection / Unknown 09/07/2024 10:10 AM SCRIPT ARTIST 09/09/2024 6:38 AM SCRIPT ARTIST Tissue specimen (specimen) (Omentum) 09/07/2024 10:52 AM SCRIPT ARTIST 09/09/2024 6:38 AM SCRIPT ARTIST Tissue specimen (specimen) SPECIMEN FROM COLON / Unknown 09/07/2024 11:35 AM SCRIPT ARTIST 09/09/2024 6:38 AM SCRIPT ARTIST Phan Self MD PATHOLOGY/CYTOLOGY ORDERAB LES Final Result Performing Organization Address City/State/[facility] Co de Phone Number [facility] CLIA# [id number] [address] [place] [address] * ID ANES INSERT ENDOTRACHEAL AIRWAY (09/07/2024 8:15 AM SCRIPT ARTIST) Narrative Sharmila Ochoa AA-C - 09/07/2024 8:15 AM SCRIPT ARTIST Sharmila Ochoa AA-C 09/07/2024 8:40 AM Airway Date/Time: 09/07/2024 8:15 AM Location: OR Plan: routine intubation Patient Identity Confirmed by: Verbally with patient and armband Staffing Performed: SILVER LAP MACHINE TENDER/CAA Authorized by: Kannan Braga MD Performed by: Sharmila Ochoa, LEW Indications and Patient Condition: Indications for Airway Management: Anesthesia Sedation Level: general anesthesia Preoxygenated: yes Mask Difficulty Assessment: 2 - vent by mask + OA or adjuvant +/- NMBA Oral Airway: 90mm Plan to extubate at end of case: Yes Final Airway Details: Final Airway Type: Endotracheal airway ETT Cuffed: Yes Technique Used for Successful ETT Placement: Video laryngoscopy Devices/Methods Used in Placement: Intubating stylet Blade Size: 3 Insertion Site: Oral ETT Size (mm): 7.0 Video Laryngoscopy Devices: GlideScope Measured from: Teeth ETT to Teeth (cm): 22 Tube secured with: Tape Placement Verified by: auscultation, end tidal CO2 and chest rise Cormack-Lehane Classification: Grade I - full view of glottis Number of Attempts at Approach: 1 Additional Procedure Information: atraumatic and dentition unchanged Kannan Braga MD PROCEDURE/MINOR SURGICAL OR DERABLES Final Result * ID ANESTHESIA BLOCK PB PLACEHOLDER CHARGE (09/07/2024 7:37 AM SCRIPT ARTIST) Narrative Melani Moran MD - 09/07/2024 7:37 AM SCRIPT ARTIST Melani Moran MD 09/07/2024 7:38 AM TAP Block Patient location during procedure: Pre-op Start time: 09/07/2024 7:16 AM End time: 09/07/2024 7:28 AM Reason for block: at surgeon's request and post-op pain management Staffing Performed: Anesthesiologist (/) Authorized by: Melani Moran MD Performed by: Melani Moran MD Vocational Education Professional: Sindi Loving RN Preanesthetic Checklist Completed: patient identified, IV checked, site marked, risks and benefits discussed, surgical consent, monitors and equipment checked, pre-op evaluation and timeout performed Hand hygiene performed prior to procedure Patient was prepped and draped in usual sterile fashion Patient position: Supine Prep: ChloraPrep Patient monitoring: Continuous pulse oximetry, Heart rate and Non-invasive blood pressure Block Region: Truncal Block Block Type: TAP Laterality: Bilateral Injection technique: Single-shot [place] Identification: ultrasound guided Local injected: Bupivacaine with epinephrine and Bupivacaine 0.25% (30 ml on each side) Dexamethasone (mg): 4 Needle Needle type: Short-bevel Needle gauge: 22 G Needle localization: Ultrasound guidance Nerve Stimulator or Paresthesia Response Motor response or paresthesia obtained mA ms Depth (cm) Sedation Given: Midazolam (mg): 1 Fentanyl (mcg): 50 Patient Response: Awake and Responsive to verbal stimuli Assessment Paresthesia pain: None Heart rate change: no Slow fractionated injection: yes Narrative Injections made incrementally with aspirations every (mL): 5 Events: easy and well tolerated, Image stored electronically in record and no block events Outcome: A full evaluation is pending Melani Moran MD PROCEDURE/MINOR SURGICAL ORDERABLES Final Result * IR IVC FILTER (09/06/2024 1:38 PM SCRIPT ARTIST) Anatomical Region Laterality Modality Abdomen X-Ray Angiograph y 09/06/2024 1:40 PM SCRIPT ARTIST Impressions 09/06/2024 3:19 PM SCRIPT ARTIST IMPRESSION: Technically successful placement of Jennie retrievable IVC filter as detailed above. PLAN: Recommend interventional radiology consult for filter retrieval once filter is no longer required (IR scheduling [phone]). DICTATION LOCATION: Location 1 - [facility] 09/06/2024 3:19 PM SCRIPT ARTIST INFERIOR VENA CAVA (IVC) FILTER PLACEMENT UNDER FLUOROSCOPIC AND ULTRASOUND GUIDANCE TIME/DATE: 09/06/2024 1:38 PM. 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 IR: Dick Zelaya M.D. CONSENT: The indications, procedures, benefits, and risks (including but not limited to increased risk of below the filter thrombosis and filter migration/penetration) were discussed with the patient/patient's proxy and informed consent was obtained per protocol. SEDATION: Local anesthetic with lidocaine 1%. TECHNIQUE: The patient was identified by standard protocol and a timeout was performed at the beginning of the procedure. Maximum sterile technique was utilized for all aspects of the procedure. PROCEDURE IN DETAIL: Patient was prepped and draped in usual sterile fashion. Limited ultrasound was performed demonstrating venous patency. A sonographic image was recorded into the patient's permanent medical record. Under ultrasound guidance, a needle was advanced into the right internal jugular vein. A 0.035 guidewire advanced easily into the inferior vena cava. Following dilation, introducer sheath was placed over the wire to the level of the common iliac veins and angiogram was performed documenting the level of the renal veins. The sheath was positioned inferior to the level of the renal veins. A retrievable filter was then deployed and completion angiogram. The sheath was removed and hemostasis achieved with manual compression. A sterile dressing was applied. The patient tolerated the procedure well. MEDICATIONS/DRUGS: None FLUOROSCOPIC TIME: 0.5 min SKIN DOSE: 91 mGy ESTIMATED BLOOD LOSS: 3 mL. COMPLICATIONS: None. FINDINGS: Pre-IVC filter placement images demonstrate no significant caval thrombosis or venous anomaly. Post-IVC filter placement images demonstrate appropriate positioning of new infrarenal filter. Procedure Note Dick Zelaya MD - 09/06/2024 INFERIOR VENA CAVA (IVC) FILTER PLACEMENT UNDER FLUOROSCOPIC AND ULTRASOUND GUIDANCE TIME/DATE: 09/06/2024 1:38 PM. 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 IR: Dick Zelaya M.D. CONSENT: The indications, procedures, benefits, and risks (including but not limited to increased risk of below the filter thrombosis and filter migration/penetration) were discussed with the patient/patient's proxy and informed consent was obtained per protocol. SEDATION: Local anesthetic with lidocaine 1%. TECHNIQUE: The patient was identified by standard protocol and a timeout was performed at the beginning of the procedure. Maximum sterile technique was utilized for all aspects of the procedure. PROCEDURE IN DETAIL: Patient was prepped and draped in usual sterile fashion. Limited ultrasound was performed demonstrating venous patency. A sonographic image was recorded into the patient's permanent medical record. Under ultrasound guidance, a needle was advanced into the right internal jugular vein. A 0.035 guidewire advanced easily into the inferior vena cava. Following dilation, introducer sheath was placed over the wire to the level of the common iliac veins and angiogram was performed documenting the level of the renal veins. The sheath was positioned inferior to the level of the renal veins. A retrievable filter was then deployed and completion angiogram. The sheath was removed and hemostasis achieved with manual compression. A sterile dressing was applied. The patient tolerated the procedure well. MEDICATIONS/DRUGS: None FLUOROSCOPIC TIME: 0.5 min SKIN DOSE: 91 mGy ESTIMATED BLOOD LOSS: 3 mL. COMPLICATIONS: None. FINDINGS: Pre-IVC filter placement images demonstrate no significant caval thrombosis or venous anomaly. Post-IVC filter placement images demonstrate appropriate positioning of new infrarenal filter. IMPRESSION: Technically successful placement of [place] retrievable IVC filter as detailed above. PLAN: Recommend interventional radiology consult for filter retrieval once filter is no longer required (IR scheduling [phone]). DICTATION LOCATION: Location 1 - [facility] Bj Granado MD IR ORDERABLES Final R esult * LMW HEPARIN MONITORING (09/06/2024 10:20 AM SCRIPT ARTIST) Only the most recent of4 resultswithin the time period is included. ANTI-XA LMW HEP 0.33 See Interpreta tion. IU/mL 09/06/2024 12:25 PM SCRIPT ARTIST [facility] Blood Venipuncture / Unknown 09/06/2024 10:20 AM SCRIPT ARTIST 09/06/2024 11:00 AM SCRIPT ARTIST Narrative [facility] - 09/06/2024 12:25 PM SCRIPT ARTIST LMWH Therapeutic Range: Twice daily dosin.50-1.00 IU/mL Once daily dosin.00-2.00 IU/mL Based on Enoxaparin brand low molecular weight heparin. Note: Refer to pharmacy recommendations for pediatric dosing information. The reference range for this test is specific to the anticoagulant and is not appropriate for monitoring patients on a DOAC protocol. Bj Granado MD HEMATOLOGY ORDERABLES F inal Result [id number] [address] [place] [place] [address] * XR ABDOMEN FOR FEEDING TUBE 1 VW (09/06/2024 5:54 AM SCRIPT ARTIST) Only the most recent of4 resultswithin the time period is included. Anatomical Region Laterality Modality Abdomen Computed Radiogr aphy 09/06/2024 5:54 AM SCRIPT ARTIST Impressions 09/06/2024 8:08 AM SCRIPT ARTIST IMPRESSION: 1. NG tube coiled just above the diaphragm, likely within a hiatal hernia. 2. Persistent dilatation of bowel loops. DICTATION LOCATION: Location 1 [facility] Narrative 09/06/2024 8:08 AM SCRIPT ARTIST SINGLE PORTABLE AP VIEW OF THE ABDOMEN DATE: 09/06/2024 5:54 AM HISTORY: Check Tube Placement COMPARISON: 09/05/2024 FINDINGS: A nasogastric tube coils just above the diaphragm, possibly within a small hiatal hernia. Dilated bowel loops persist within the central and right aspect of the abdomen. Mild left basilar opacities persist. Procedure Note Gibran Mendoza MD - 09/06/2024 SINGLE PORTABLE AP VIEW OF THE ABDOMEN DATE: 09/06/2024 5:54 AM HISTORY: Check Tube Placement COMPARISON: 09/05/2024 FINDINGS: A nasogastric tube coils just above the diaphragm, possibly within a small hiatal hernia. Dilated bowel loops persist within the central and right aspect of the abdomen. Mild left basilar opacities persist. IMPRESSION: 1. NG tube coiled just above the diaphragm, likely within a hiatal hernia. 2. Persistent dilatation of bowel loops. DICTATION LOCATION: Location 1 - [facility] Bj Granado MD DIAGNOSTIC IMAGING [facility] Final Result * (ABNORMAL) URINALYSIS WITH REFLEX MICROSCOPIC (09/04/2024 12:43 PM SCRIPT ARTIST) Only the most recent of2 resultswithin the time period is included. COLOR UA Yellow Pale to Dark Yellow 09/04/2024 1:26 PM SCRIPT ARTIST [facility] LABORATORY SERVICES [facility] CLARITY UA Turbid(A) Clear 09/04/2024 1:26 PM SCRIPT ARTIST [facility] LABORATORY SERVICES [facility] SPECIFIC GRAVITY UA 1.034 1.003 - 1.035 09/04/2024 1:26 PM SCRIPT ARTIST [facility] LABORATORY [facility] PH UA 5.0 5.0 - 8.0 09/04/2024 1:26 PM SCRIPT ARTIST [facility] LABORATORY [facility] LEUKOCYTE ESTERASE UA 3+(A) Negative 09/04/2024 1:26 PM SCRIPT ARTIST [facility] NITRITE UA Negative Negative 09/04/2024 1:26 PM [facility] PROTEIN UA 1+(A) Negative 09/04/2024 1:26 PM [facility] GLUCOSE UA Negative Negative 09/04/2024 1:26 PM [facility] KETONES UA Trace(A) Negative 09/04/2024 1:26 PM [facility] UROBILINOGEN UA Normal <2.0 mg/dL 1:26 PM [facility] BILIRUBIN UA Negative Negative 09/04/2024 1:26 PM [facility] BLOOD UA Trace(A) Negative 09/04/2024 1:26 PM [facility] WBC UA >100(A) 0 - 2 /hpf 09/04/2024 1:26 PM [facility] RBC UA 11-25(A) 0 - 2 /hpf 09/04/2024 1:26 PM [facility] BACTERIA UA Negative Negative /hpf 09/04/2024 1:26 PM [facility] EPITHELIAL CELLS, URINE 11-25(A) 0 - 5 /hpf 09/04/2024 1:26 PM [facility] HYALINE CAST 11-25(A) None Seen, 0-2 /lpf 09/04/2024 1:26 PM [facility] Ascorbic Acid UA Positive(A) Negative 024 1:26 PM [facility] Urine URINE SPECIMEN OBTAINED BY CLEAN CATCH PROCEDURE / Unknown Collection / Unknown 09/04/2024 12:43 PM SCRIPT ARTIST 09/04/2024 12:54 PM SCRIPT ARTIST Álvaro Angeles MD URINE ORDERABLES Final Resu lt [facility] CLIA# [id number] [address] [place] [address] * (ABNORMAL) POTASSIUM LEVEL (09/03/2024 9:20 PM SCRIPT ARTIST) POTASSIUM 3.1(L) 3.5 - 5.0 mmol/L 09/03/2024 10:02 PM SCRIPT ARTIST [facility] LABORATORY [facility] Blood Venipuncture / Unknown 09/03/2024 9:20 PM SCRIPT ARTIST 09/03/2024 9:24 PM SCRIPT ARTIST us Bj Granado MD CHEMISTRY ORDERABLES Fi nal Result [facility] CLIA# [id number] [facility] [place] [address] * EKG 12-LEAD (09/03/2024 6:13 AM SCRIPT ARTIST) 09/03/2024 6:13 AM SCRIPT ARTIST Narrative INTERFACE SYSTEM - 09/03/2024 7:[address] 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: Greyson : 1955 Requested By: MAGDI KHAN Order Number: [id number] Reading MD: Andres Arzola Measurements Intervals [place] Rate: 84 P: 107 ID: [id number] QRS: -9 QRSD: 109 T: -31 QT: 242 QTc: 287 Interpretive Statements SINUS RHYTHM WITH FIRST DEGREE AV BLOCK INFERIOR MYOCARDIAL INFARCTION , PROBABLY OLD [40+ ms Q WAVE AND/OR ST/T ABNORMALITY IN II/aVF] Electronically Signed On 09-03-2024 7:53:41 SCRIPT ARTIST by Andres Arzola us Álvaro Angeles MD ECG ORDERABLES Final Resul t INTERFACE SYSTEM Refer to clinic/hospital department * LACTIC ACID (09/03/2024 5:58 AM SCRIPT ARTIST) LACTIC ACID 0.7 <=2.0 mmol/L 09/03/2024 7:02 AM SCRIPT ARTIST [facility] Blood Venipuncture / Unknown 09/03/2024 5:58 AM SCRIPT ARTIST 09/03/2024 6:13 AM SCRIPT ARTIST Álvaro Angeles MD CHEMISTRY ORDERABLES Final Result [facility]# [id number] [address] [facility] [place] [address] * BLOOD CULTURE (09/03/2024 5:58 AM SCRIPT ARTIST) Only the most recent of2 resultswithin the time period is included. BLOOD CULTURE No growth 09/08/2024 7:23 AM SCRIPT ARTIST [facility] Blood (Peripheral) Venipuncture / Unknown 09/03/2024 5:58 AM SCRIPT ARTIST 09/03/2024 6:14 AM SCRIPT ARTIST Narrative [facility] LABORATORY [facility] - 09/08/2024 7:23 AM SCRIPT ARTIST Specimen processed with suboptimal blood volume collected. Álvaro Angeles MD [facility] Final Result Performing Organization Address [facility]/ZIP Co de Phone Number [facility]# [id number] [address] [place] [address] * C-REACTIVE PROTEIN (09/03/2024 5:58 AM SCRIPT ARTIST) Only the most recent of2 resultswithin the time period is included. CRP 4.4 <5.0 mg/L 09/03/2024 7:18 AM [facility] [employer] SERVICES [facility] Blood Venipuncture / Unknown 09/03/2024 5:58 AM SCRIPT ARTIST 09/03/2024 6:13 AM SCRIPT ARTIST Álvaro Angeles MD CHEMISTRY ORDERABLES Final Result Performing Organization Address [facility] Co de Phone Number [facility]# [id number] [address] [place] [address] * (ABNORMAL) COMPREHENSIVE METABOLIC PANEL (09/03/2024 5:58 AM SCRIPT ARTIST) Only the most recent of2 resultswithin the time period is included. SODIUM 138 136 - 145 mmol/L 09/03/2024 7:25 AM [facility] [employer] LABORATORY SERVICES [facility] POTASSIUM 2.4(LL) 3.5 - 5.0 mmol/L 09/03/2024 7:25 AM [facility] [employer] LABORATORY SERVICES [facility] CHLORIDE 103 98 - 107 mmol/L 09/03/2024 7:25 AM SCRIPT ARTIST [employer] LABORATORY SERVICES [facility] CO2 26 22 - 29 mmol/L 09/03/2024 7:25 AM SCRIPT ARTIST [employer] LABORATORY SERVICES [facility] CALCIUM 8.5(L) 8.6 - 10.2 mg/dL 09/03/2024 7:25 AM [facility] [employer] LABORATORY SERVICES [facility] BUN 5(L) 8 - 23 mg/dL 09/03/2024 7:25 AM [facility] [employer] LABORATORY SERVICES [facility] CREATININE 0.61 0.51 - 0.95 mg/dL 09/03/2024 7:25 AM [facility] LABORATORY SERVICES - [facility] Comment:The GFR result is no t clinically significant on patients <18 or >70 years of age. GLUCOSE 102(H) 74 - 99 mg/dL 09/03/2024 7:25 AM [facility] TOTAL PROTEIN 5.6(L) 6.7 - 8.6 g/dL 09/03/2024 7:25 AM [facility] ALBUMIN 3.1(L) 3.5 - 5.2 g/dL 09/03/2024 7:25 AM [facility] BILIRUBIN TOTAL 0.3 0.2 - 1.1 mg/dL 09/03/2024 7:25 AM [facility] ALKALINE PHOSPHATASE 66 35 - 104 U/L 09/03/2024 7:25 AM [facility] AST 12 <33 U/L 09/03/2024 7:25 AM [facility] ALT 9 <34 U/L 09/03/2024 7:25 AM [facility] GFR >60 mL/min/1.7 3 sq meter 09/03/2024 7:25 AM [facility] Comment:eGFR calculated with 2020 CKD-EPI equation. Vegetarian diet, extremely high or low muscle mass, and may affect results. Cystatin C with Glomerular Filtration Rate is a suitable alternative for these patients. ANION GAP 9 8 - 16 mmol/L 09/03/2024 7:25 AM [facility] Blood Venipuncture / Unknown 09/03/2024 5:58 AM SCRIPT ARTIST 09/03/2024 6:13 AM [facility] - 09/03/2024 7:25 AM [facility] Samples containing indocyanine green cause interferences on Total and/or Direct Bilirubin and must not be measured. Álvaro Angeles MD CHEMISTRY ORDERABLES Final Result [facility] CLIA# [id number] [address] [facility] [place] [address] * PROTIME-INR (09/03/2024 5:47 AM SCRIPT ARTIST) PROTIME 13.8 12.7 - 15.1 Seconds 09/03/2024 6:46 AM SCRIPT ARTIST [facility] INR 1.1 0.9 - 1.1 09/03/2024 6:46 AM SCRIPT ARTIST [facility] Blood Venipuncture / Unknown 09/03/2024 5:47 AM SCRIPT ARTIST 09/03/2024 6:13 AM SCRIPT ARTIST Narrative [facility] - 09/03/2024 6:46 AM SCRIPT ARTIST INR Therapeutic Range: Adult: 2.0 - 3.0 for pulmonary embolism or prophylaxis against venous thrombosis or systemic embolization. 2.0 - 3.0 for patients with tissue heart valves. 2.5 - 3.5 for patients with mechanical heart valves or post MT. Pediatric (12 years and under): 1.5 - 3.0 Although the target range in children is not well established, INR values of 1.5 - 3.0 are recommended for most patients. Higher values have been used in children with prosthetic cardiac valves and hereditary clotting disorders. (<3 days) therapeutic ranges have not been established. us Álvaro Angeles MD HEMATOLOGY ORDERABLES Final Result [facility]# [id number] [facility] [place] [address] * CREATININE (08/25/2024 7:06 AM SCRIPT ARTIST) CREATININE 0.70 0.51 - 0.95 mg/dL 08/25/2024 8:10 AM SCRIPT ARTIST [facility] Comment:The GFR result is no t clinically significant on patients <18 or >70 years of age. GFR >60 mL/min/1.7 3 sq meter 08/25/2024 8:10 AM [facility] Comment:eGFR calculated with 2020 CKD-EPI equation. Vegetarian diet, extremely high or low muscle mass, and may affect results. Cystatin C with Glomerular Filtration Rate is a suitable alternative for these patients. Blood Venipuncture / Unknown 08/25/2024 7:06 AM SCRIPT ARTIST 08/25/2024 7:30 AM SCRIPT ARTIST us Estelle Deleon MD CHEMISTRY ORDERABLES Final Re sult [facility] LABORATORY SERVICES [facility]# [id number] [address] [place] [address] * FLEXIBLE SIGMOIDOSCOPY REPORT (08/23/2024 4:22 PM SCRIPT ARTIST) Narrative Procedure Note Raman Bailey MD - 08/23/2024 4:[address] [facility] Endoscopy Patient Name: Guillermina Simpson Procedure Date: 08/23/2024 Date of : 1955 Attending MD: Raman Bailey MD, Procedure: Flexible Sigmoidoscopy Indications: For therapy of colonic obstruction Patient Profile: Sigmoid stricture Providers: Raman Bailey MD Referring MD: Medicines: None, General Anesthesia Complications: No immediate complications. Procedure: Informed consent was obtained for the procedure, including moderate sedation after risks were discussed. Based on the pre-procedure assessment, including review of the patient's medical history, medications, allergies, and review of systems, the patient was deemed to be an appropriate candidate for sedation. A timeout was performed. Continuous ECG monitoring, pulse oximetry, blood pressure monitoring, and direct observation were performed. The flexible sigmoidoscopy was technically difficult and complex. The was introduced through the anus and advanced to the descending colon. The was introduced through the anus and advanced to descending colon. Estimated Blood Loss: Estimated blood loss was minimal. Findings: Procedure was started with a standard diagnostic gastroscope. Diffuse diverticulosis otherwise normal-appearing rectum and distal sigmoid colon. In mid sigmoid there was a very tight turn with severely edematous mucosa and narrowed lumen. Able to advance through this area anterior normal-appearing area of descending colon. This roughly appeared to be about 7 cm in length. A long 0.035 inch straight soft Jagwire was then passed through the scope and advanced under fluoroscopy and 2 more proximal descending colon. Scope was removed with wire left in place. Exchanged for a adult colonoscope. The wire was backloaded on the colonoscope. Scope was then inserted. With use of wire able to cross stricture into descending colon. A uncovered 25 mm x 9 cm stent was then advanced over the wire. The stent was then deployed under direct endoscopic and fluoroscopic visualization crossing stricture. The stent did appear to cross the entire narrowed area although distal end of stent appeared to be partially facing towards colon wall. 2 Mantis clips were then placed to anchor distal end of stent to decrease risk of migration. Impression: - Uncovered 25mm x 9cm colon stent placed crossing sigmoid stricture. - Distal end of stent angled towards rectal wall. - Potentially could place an overlapping stent if still have obstructive symptoms Recommendation: - Return patient to hospital [facility] for ongoing care. - Advance diet as tolerated - Continue all medications - Once tolerating PO diet would place on Miralax at least once daily to ensure stools are soft or partially liquid Raman Bailey MD 08/23/2024 4:22:39 PM This report has been signed electronically. Number of Addenda: [address]; [place] [address] Raman Bailey MD GI PROCEDURE ORDERABLES Final Result * XR FLUORO LESS THAN 1 HOUR (08/23/2024 3:27 PM SCRIPT ARTIST) Anatomical Region Laterality Modality Computed Radiogr aphy 08/23/2024 3:27 PM SCRIPT ARTIST Impressions 08/23/2024 3:51 PM SCRIPT ARTIST IMPRESSION: Please see procedure note by the service performing the procedure for details. Narrative 08/23/2024 3:51 PM SCRIPT ARTIST PROCEDURE/EXAM(S): XR FLUORO LESS THAN 1 HOUR PROVIDED CLINICAL HISTORY/INDICATION: Female of 69 years age. Other - Please see comments. See Reason for Exam. DICTATION LOCATION: Location 1 - [facility] TECHNIQUE/FINDINGS: Fluoroscopy was provided by the radiology department for another service and fluoroscopic images were obtained over the abdomen and pelvis for a procedure. I was not present or involved with this procedure. Please see procedure note by the physician/service performing the procedure for details. FLUOROSCOPY TIME / EXPOSURE: 0.01 minutes / 35 mGy (Ka,r). Procedure Note Amie Hearn MD - 08/23/2024 PROCEDURE/EXAM(S): XR FLUORO LESS THAN 1 HOUR PROVIDED CLINICAL HISTORY/INDICATION: Female of 69 years age. Other - Please see comments. See Reason for Exam. DICTATION LOCATION: Location 1 [facility] TECHNIQUE/FINDINGS: Fluoroscopy was provided by the radiology department for another service and fluoroscopic images were obtained over the abdomen and pelvis for a procedure. I was not present or involved with this procedure. Please see procedure note by the physician/service performing the procedure for details. FLUOROSCOPY TIME / EXPOSURE: 0.01 minutes / 35 mGy (Ka,r). IMPRESSION: Please see procedure note by the service performing the procedure for details. 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 Authorized by: Noel Mendiola MD Performed by: Nanette Leroy AA-C Indications and Patient Condition: Indications for Airway Management: Anesthesia Sedation Level: general anesthesia Preoxygenated: yes Patient Position: Sniffing and ramp Mask Difficulty Assessment: 0 - not attempted Plan to extubate at end of case: Yes Final Airway Details: Final Airway Type: Endotracheal airway ETT Cuffed: Yes Cuff Volume (mL): 6 Technique Used for Successful ETT Placement: Direct laryngoscopy Devices/Methods Used in Placement: Cricoid pressure, intubating stylet and modified RSI Blade Type: curved blade Blade Size: 3 Insertion Site: Oral ETT Size (mm): 7.0 Measured from: Teeth ETT to Teeth (cm): 23 Tube secured with: Tape Placement Verified by: auscultation, end tidal CO2 and chest rise Cormack-Lehane Classification: Grade IIb - view of arytenoids or posterior of glottis only Number of Attempts at Approach: 2 Additional Procedure Information: atraumatic and dentition unchanged Noel Mendiola MD PROCEDURE/MINOR SURGICAL OR DERABLES Final Result * C. DIFFICILE DETECTION (08/22/2024 5:44 PM SCRIPT ARTIST) TOXIGENIC C DIFFICILE NOT DETECTED Not Detected 08/22/2024 7:10 PM SCRIPT ARTIST [facility] Stool STOOL SPECIMEN / Unknown Collection / Unknown 08/22/2024 5:44 PM SCRIPT ARTIST 08/22/2024 5:52 PM SCRIPT ARTIST Narrative [facility] - 08/22/2024 7:10 PM SCRIPT ARTIST This assay is used to detect Toxigenic C. difficile target(B gene) DNA sequences in unformed stool specimens. If toxigenic C. difficile is not detected, but clinical suspicion is high please consult ID for consultation and potential repeat testing. This test should not be used as a test of cure. Juan Ramon Okeefe MD MICROBIOLOGY - GENERAL ORDERABLES Final Result [facility]# [id number] [facility] [place] [address] * XR ENEMA WATER SOLUBLE (08/21/2024 2:21 PM SCRIPT ARTIST) Anatomical Region Laterality Modality Abdomen Computed Radiogr aphy 08/21/2024 2:36 PM SCRIPT ARTIST Impressions 08/21/2024 2:49 PM SCRIPT ARTIST IMPRESSION: Severe indeterminate etiology stricture of the proximal/mid sigmoid colon. This corresponds to findings on recent CT. This limits used evacuation of contrast. DICTATION LOCATION: Location 1 - [facility] Narrative 08/21/2024 2:49 PM SCRIPT ARTIST XR ENEMA WATER SOLUBLE DATE: 08/21/2024 2:21 PM HISTORY: Sigmoid stricture on recent sigmoidoscopy according to the EMR. Sigmoid colon thickening on recent outside CT imaging.. FINDINGS: Fluoroscopy time 0.9 minutes. Dose 307.4 mgGy Cystografin 600 mL [id number] mm. Patient was placed on the fluoroscopy table. Rectal tube was placed. Field Agent images demonstrate bowel gas throughout the abdomen. There is good distention of the rectum and distal sigmoid. Severe stricturing is seen within a relatively long segment in the proximal/mid sigmoid colon. Small irregular contrast-enhanced lumen is identified. A few scattered diverticuli are present in the descending and sigmoid colon. There is good distention of the descending colon with column of contrast extending to the splenic flexure during fluoroscopy. Overhead radiographic images demonstrate progression of contrast mixing with stool into the transverse and ascending colon. Postevacuation reveals marked reduction of contrast within the distal sigmoid and rectum. Large volume of residual contrast is seen proximal to the stricture. Procedure Note Arron Leach MD - 08/21/2024 XR ENEMA WATER SOLUBLE DATE: 08/21/2024 2:21 PM HISTORY: Sigmoid stricture on recent sigmoidoscopy according to the EMR. Sigmoid colon thickening on recent outside CT imaging.. FINDINGS: Fluoroscopy time 0.9 minutes. Dose 307.4 mgGy Cystografin 600 mL [id number] mm. Patient was placed on the fluoroscopy table. Rectal tube was placed. Field Agent images demonstrate bowel gas throughout the abdomen. There is good distention of the rectum and distal sigmoid. Severe stricturing is seen within a relatively long segment in the proximal/mid sigmoid colon. Small irregular contrast-enhanced lumen is identified. A few scattered diverticuli are present in the descending and sigmoid colon. There is good distention of the descending colon with column of contrast extending to the splenic flexure during fluoroscopy. Overhead radiographic images demonstrate progression of contrast mixing with stool into the transverse and ascending colon. Postevacuation reveals marked reduction of contrast within the distal sigmoid and rectum. Large volume of residual contrast is seen proximal to the stricture. IMPRESSION: Severe indeterminate etiology stricture of the proximal/mid sigmoid colon. This corresponds to findings on recent CT. This limits used evacuation of contrast. DICTATION LOCATION: Location - [facility] Juan Ramon Okeefe MD DIAGNOSTIC IMAGING ORDGregory WILLAMS Final Result from Last 3 Months Insurance FOR LIFE MEDICARE PART A AND B [employer] MEDICARE PART A AND B FOR LIFE Advance Directives For more information, please contact: [phone] * Full Code (Latest Code Status on File) Date Activated Date Inactivated Comments 09/07/2024 7:30 PM 09/13/2024 11:59 PM * Full Code Date Activated Date Inactivated Comments 09/03/2024 4:14 AM 09/07/2024 7:30 PM * Full Code Date Activated Date Inactivated Comments 08/23/2024 2:19 PM 08/27/2024 7:39 PM * Full Code Date Activated Date Inactivated Comments 08/20/2024 7:08 PM 08/23/2024 2:19 PM * Full Code Date Activated Date Inactivated Comments 03/05/2016 10:32 AM 03/06/2016 3:59 PM Care Teams Director Information Relationship Specialty Start Date End Date Petey Vasquez MD [address] [facility] [address] [place] [id number] PCP - General Family Practice 11/12/24
--- OUTSIDE RECORDS SUMMARY | 2024-11-14 13:32 | XMS_ITS | Encounter Summary ---
[facility] Address [address] [place] [address] Care Team Providers Care Education And Training Coordinator Name Role Phone Petey Vasquez MD Primary Care Provider [phone] Reason for Visit * Auth/Cert (Routine) Specialty Diagnoses / Procedures Referred By Irwin t Referred To Contact Perioperative Diagnoses Non-healing surgical wound, initial encounter Procedures GA ANRCT XM SURG REQ ANES GENERAL SPI/EDRL DX GA NEG PRESSURE WOUND THERAPY NON DME <= 50 SQ CM EXAMINATION UNDER ANESTHESIA Phan Self MD [address] [facility] [address] [place] [phone] Phone: tel: fax: [facility] Operating Room [address] [place] [address] Phone: tel: fax: Referral ID Status Reason Start Date Expiration Date Visits Re quested Visits Authorized [id number] 1 1 Encounter Details Date Type Department Care Team (Latest Contact Info) Description 10/11/2024 Hospital Encounter [facility] Operating Room [address] [place] [address] Phan Self MD [address] [facility] [address] [place] [phone] Non-healing surgical wound, initial encounter Social History Tobacco Use Types Packs/Day Years [...] Sex Assigned at Female 09/22/2024 11:47 PM PRINTING BINDERY ASSISTANT Legal Sex Female 7:23 AM CDT Gender Identity Female 09/22/2024 11:47 PM PRINTING BINDERY ASSISTANT Sexual Orientation Straight 09/22/2024 11 :47 PM PRINTING BINDERY ASSISTANT documented as of this encounter OR Notes * [facility] - Brandi Gutiérrez RN - 10/09/2024 9:08 AM CST Images from the original note were not included. PRE-PROCEDURE INSTRUCTIONS [facility] Name: Guillermina Nicole Age: 69 y.o. Please report to the: Surgery Center - [address] [address] Date of Procedure: 10/11/24 Please follow these important instructions Discharge home care of venipuncture site. Remove your bandage (pressure dressing/Coban) after 1-3 hours or once bleeding has stopped. Avoid excessive movement of the extremity. Apply ice to site for pain/swelling. Arrive at the time your surgeon's office has instructed. You will receive a call from your surgeon's office with your arrival time. Please note, based on patient and procedure specific considerationspatients are normally told to arrive either 1.5 hours or 2 hours prior to their surgery start time.If you have not been given your arrival time 2 days before your surgery, please contact your surgeon 's office. The decision whether to stay overnight or go home will be made by the attending surgeon. PLEASE NOTIFY your surgeon promptly if you begin to feel ill prior to your surgery. A wound or rash at the surgical site or any other kind of illness may require postponing the surgery to another date for your safety. If this occurs within 24 hours of your surgery, please contact your surgeon's office and then the OR desk at [phone], which is available 03/04. *Notify the [facility] department ([phone]) of any changes in your medical condition or medications. If you have any questions, call the [facility] Center at [phone]; Monday-Monday 7:30am-4:00pm Adult Fasting Instructions Outpatient and patients who will be admitted following procedure. Please read before day of procedure. Please note, based on patient and procedure specific considerations patients are normally told to arrive either 1.5 hours or 2 hours prior to their surgery start time. If you have not yet been given your surgery start time, please contact your surgeon's office. ALL foods and non-clear liquids All solid food, all liquids you are unable to see through *See Exceptions Below STOP at midnight prior to the morning of your procedure Clear Liquids THE ONLY CLEAR LIQUIDS ALLOWED ARE: Water Gatorade or other sports/electrolyte drinks Juices: Clear Apple, white grape, cranberry (No pulp or cider) Coffee/Tea WITHOUT cream or other additive IF INSTRUCTED, CLEAR nutritional supplement drink No other clear liquids allowed including alcohol *See Exceptions Below STOP 3 hours before your scheduled procedure time: At midnight prior to the morning of your procedure STOP all solid foods and non- clear liquids?(all solid food, all alcohol, all liquids you are unable to see through)? May have CLEAR liquids between midnight and 3 hours prior to your procedure time.? CLEAR liquids?allowed: Water, Gatorade or other sports/electrolyte drinks, Juices (clear apple, white grape, cranberry (NO PULP OR CIDER), Coffee/Tea WITHOUT cream or other additive. If instructed, clear nutritional supplement drink? *Exceptions:? Patients with End Stage Kidney Disease, gastroparesis (slow emptying of the stomach)? - Clear liquids must stop 6 hours prior to your procedure? If you are having surgery under the Enhanced Recovery After Surgery (ERAS) protocol, please disregard these instructions and follow the ERAS instructions.? If your surgeon has instructed you to stay on a clear liquid diet prior to the day of surgery, follow your surgeon???s instructions and avoid all food and non- clear liquids? If you have any questions, call the [facility] at [phone]?- Monday-Monday 7:30 a.m. - 4:00 p.m.? WITHIN 24 HOURS PRIOR TO SURGERY Shower (bathe) and shampoo the evening before and morning of surgery. If instructed to do so, please follow the directions on the provided soap or antibacterial soap. Before you bathe, or shower carefully read all directions and warnings on the product label. Showeror bathe with an antiseptic soap solution chosen by your surgeon, such as Chlorhexidine Gluconate (CHG) with brand names like Hibiclens.? If you are allergic to CHG, Hibiclens or Aloe. DO NOT use product.?Showering will ensure removal of bacteria and minimize risk of infection. Do not use the CHG soap on your face. Avoid getting the soap in your genital area, eyes, ears, mouth, or nose. While using the soap, if you feel itchy or experience red skin, stop using the product and immediately rinse off with water. Tell your care team about this reaction. After rinsing off the soap, do not use regular soap. After your shower, do not apply any powders, lotion, creams, deodorant, or makeup to your skin. Do not shave or remove any hair at the surgical site four days prior to surgery.? Using a clean freshly laundered dry towel pat dry after the showers each time you shower.? Sleep inclean freshly laundered sleepwear and bed linens. DO NOT WEAR JEWELRY (rings, earrings, and body piercings), wigs, or hair pieces to the hospital. We recommend patients abstain from SMOKING or VAPING TOBACCO / NICOTINE / MEDICAL MARIJUANA for as long as possible prior to surgery. DO NOT SMOKE, VAPE OR USE any TOBACCO / NICOTINE/ MEDICAL MARIJUANA PRODUCTS (smoking,?oral,?edibleproducts, ointments, tinctures and concentrates)?on the day of your procedure. DAY OF SURGERY INSTRUCTIONS YOU WILL NEED A RESPONSIBLE ADULT FAMILY MEMBER OR FRIEND WITH YOU UPON DISCHARGE. YOUR SURGERY MAYBE CANCELLED IF YOU DO NOT HAVE A RESPONSIBLE ADULT TO TAKE YOU HOME. It is highly suggested you have a responsible adult with you overnight after receiving anesthesia. WEAR comfortable, loose-fitting clothes to the hospital that will fit over dressings after your surgery. WEAR GLASSES instead of contact lenses to the hospital; bring a case for glasses, dentures, and hearing aids as you will be asked to remove these items before your surgery. BRING your insurance cards and funeral limousine driver's license or photo ID. DO NOT BRING VALUABLES or large amounts of obrien with you to the hospital. BRING any medical devices you need to the hospital, including remotes for stimulators, CPAP, BIPAP,or WOUND VAC machines. Surgical times are estimates and can vary depending on numerous factors. Expect a minimum post-op recovery of 1 hour. The medical staff will provide updates to family and/or friends as appropriate. For surgical procedures, patient may be allowed two adult visitors. Special considerations may be allowed for pediatric patients under the age of 18 years. During your hospital stay you will receive a personal passcode to help protect your health information. This will be a number that you may share with anyone you choose to receive your protected health information (PHI). Family and friends will need to ask for you by name and use the passcode beforeyour care team can share information, either in person or by phone. Please ask those who have your passcode to protect it. ADVANCED PLANNING FOR MEDICATION USE * Unless otherwise ordered by a member of the [facility] Anesthesiology Staff. 1. STOP a. Seven (7) DAYS PRIOR TO SURGERY OR WHEN NOTIFIED IF < SEVEN DAYS: The use of all vitamins, herbal supplements, and other alternative substances. b. Seven (7) DAYS PRIOR TO SURGERY: The use of any UNPRESCRIBED Aspirin, Excedrin and NSAIDs which include Motrin, Ibuprofen, Aleve, and Naprosyn. CURRENT MEDICATION LIST Pre-Surgery Instructions Medication Instructions furosemide (LASIX) 20 mg tablet Do not take day of surgery Micardis HCT 40-12.5 mg Tablet Take morning of surgery with sip of water acetaminophen (TYLENOL) 500 mg tablet May take as needed (PRN) medication with sip of water famotidine (PEPCID) 20 mg tablet Take morning of surgery with sip of water simvastatin (ZOCOR) 20 mg tablet Continue to take the evening prior to surgery, as prescribed alendronate (FOSAMAX) 70 mg tablet Continue as prescribed omeprazole (PriLOSEC) 20 mg Capsule, Delayed Release(E.C.) Take morning of surgery with sip of water ezetimibe (ZETIA) 10 mg tablet Take morning of surgery with sip of water enoxaparin (LOVENOX) 120 mg/0.8 mL injection Contact prescribing provider metoprolol tartrate (LOPRESSOR) 25 mg tablet Take morning of surgery with sip of water FAQs about Surgical Site Infections What is a Surgical Site Infection (SSI)? A surgical site infection is an infection that occurs after a surgery in the part of the body wherethe surgery took place. Most patients who have surgery do not develop an infection. However, infections develop in about 1 to 3 out of every 100 patients who have surgery. Some of the common symptomsof a surgical site infection are: Redness and pain around the area where you had surgery Drainage of cloudy fluid from your surgical wound Fever Can SSI be treated? Yes. Most surgical site infections can be treated with antibiotics. The antibiotic given to you depends on the bacteria (germs) causing the infection. Sometimes patients with SSI also need another surgery to treat infection. What are some of the things that hospitals are doing to prevent SSIs? To prevent SSIs, doctors, nurses, and other healthcare providers: Clean their hands and arms up to their elbows with antiseptic agent just before the surgery. Clean their hands with soap and water or an alcohol-based hand rub before and after caring for eachpatient. May remove some of your hair immediately before surgery using electric clippers if the hair is in the same area where the procedure will occur. They should not shave you with a razor. Wear special hair covers, mask, gowns, and gloves during surgery to keep the surgery area clean. Give you antibiotics before your surgery starts. In most cases, you should get antibiotics within 60 minutes before the surgery starts and the antibiotics should be stopped within 24 hours after surgery. Clean the skin at the site of your surgery with a special soap that kills germs What can I do to help prevent SSIs? Before your surgery: Tell your doctor and other medical problems you may have. Health problems such as allergies, diabetes, and obesity could affect your surgery and your treatment. Quit smoking. Patients who smoke get more infections. Talk to your doctor about how you can quit before your surgery. Do not shave near where you will have surgery. Shaving with a razor can irritate your skin and makeit easier to develop an infection. At the time of your surgery: Speak up if someone tries to shave you with a razor before surgery. Ask why you need to be shaved and talk with your surgeon if you have any concerns. Ask if you will get antibiotics before surgery. After your surgery: Make sure that your healthcare providers clean their hands before examining you, either with soap and water or an alcohol-based hand rub. If you do not see your providers clean their hands, please ask them to do so. Family and friends who visit you should not touch the surgical wound or dressings. Family and friends should clean their hands with soap and water or an alcohol- based hand rub beforeand after visiting you. If you do not see them clean their hands, ask them to clean their hands. What do I need to do when I go home from the hospital? Before you go home, your doctor or nurse should explain everything you need to know about taking care of your wound. Make sure you understand how to care for your wound before you leave the hospital. Always clean your hands before and after caring for your wound. Before you go home, make sure you know who to contact if you have questions or problems after you get home. If you have any symptoms of an infection, such as redness and pain at the surgery site, drainage, or fever, call your doctor immediately. If you have additional questions, please ask your doctor or nurse. Having Surgery? Enhancing Nutrition Before Surgery Can Make a Difference!! Studies have shown that enhancing nutrition prior to surgery plays an important role in a healthierand faster recovery. Surgery adds stress to the body that can result in increased protein and energy needs, unintended weight loss, inflammation, and the lower ability to fight off infections. Consuming a well- balanced diet before surgery, along with the use of oral nutritional drinks can help to support your immune health, help to maintain your strength, and lead to a faster recovery. Follow theguidelines below to help improve your nutritional status before and after surgery. Continue to follow all guidelines provided by the [facility] which includes stopping all vitamins and herbal supplements one week (7 days) prior to surgery. Eat a Well-Balanced Diet: You don???t need to follow a complicated diet prior to surgery to improve your nutrition. Instead, focus on eating a healthy balanced diet filled with a variety of foods from all the food groups. Aim for 3 well balanced meals and between meals snacks daily. Refer to ChooseMyPlate.gov for healthy eating guidelines. Eating adequate protein is essential prior to surgery. Try incorporating lean protein sources or plant-based protein at all your meals. Healthy proteins include fish, chicken, lean beef, eggs, beans,lentils, soy, tofu, and nuts. Dairy products are a great way to increase your protein as well as calcium intake. Choose from skimor 1% milk, low-fat yogurts, low fat cottage cheese. Increase intake of fruits and vegetables. Eat a variety of colorful fruits and vegetables that fillup at least half of your plate. Some high nutrient fruits and vegetables include berries, oranges, bananas, avocados, leafy greens, carrots, broccoli, sweet potatoes, and lyon peppers. Choose more whole grains such as brown rice, barley, quinoa, oats, or whole grain breads. Increase intake of healthy fats. Choose whole food sources of fats such as nuts, ofe seeds, flaxseed, walnuts, avocado. Choose other heart healthy fats such as olive oil instead of butter. Limit sodium intake by seasoning with fresh herbs and spices instead of salt. Decrease intake of processed foods such as canned vegetables, frozen meals, fast foods, and packaged snack foods. Limit alcohol to no more than 2 serving a day for men and 1 serving a day for women (1 servin oz. beer, 8 oz. malt liquor, 5 oz. wine, 1.5 oz. distilled spirits. Between Meal Snacks: Having snacks between meals is a great way to increase your protein and nutritional intake. Try keeping healthy and quick snacks on hand, as they require little or no preparation time! Great snack ideas include hard boiled eggs, cheese and crackers, string cheese, nut butters with crackers or bread, nuts, yogurt, cereals with low fat milk, oatmeal, fruit smoothies, protein bars, high protein oral nutritional drinks. Stay Well Hydrated: Drinking adequate water is essential in keeping you hydrated and reducing the risk of constipation. Aim for at least 64 ounces of non-caffeinated liquids daily. Water is best, but all types of liquidcontribute to your fluid intake such as broth, soup, milk, juice, tea, and coffee. (Continue with previously prescribed fluid restrictions for other medial concerns) Nutrition Oral Drinks Before and After Surgery: Surgery can create unique nutritional needs that sometimes can???t be met with a normal well-balanced diet alone. Adding high protein nutritional drinks into your diet prior to surgery may help to meet these added surgical needs and aid in a faster recovery. More recent research has also shown thatadding specific immune enhancing nutrients, such as Arginine and Tpmze-4-Hicqe Acids, may result infewer surgical complications and a quicker recovery. These specific immune enhancing nutrients can be found in the oral nutritional drinks such as Ensure Surgery and Nestle Impact Advanced Recovery. For patients with diabetes or renal disease, please refer to your physician prior to following the below oral nutritional drink guidelines. Reminder for all patients: Stop all vitamins and herbal supplements one week (7 days) prior to surgery. Oral Nutritional Drink Guidelines Prior to Surgery: Consume 2-3 immune enhancing drinks or high protein nutritional drinks daily for 5-7 days before surgery. Immune enhancing drinks include Ensure Surgery, Nestle Impact Advanced Recovery. High protein nutritional drinks should contain 18 gram of protein or more per serving. Examples include Boost High Protein, Ensure Max, Premier Protein to name a few. Check for generic or store brandoptions such as Equate. Supplements available for purchase at [facility] - Ensure Surgery, Ensure Max, Ensure Enlive, (phone: [phone]) Supplements are also available for purchase at [employer] and many other grocery stores and pharmacies. Day of Surgery Guidelines. Follow the Adult Fasting Instructions provided to you by the [facility] for your specific surgery. For questions regarding your day of surgery diet or fasting guidelines please call the [facility] at [phone], Monday-Monday. 7:30 a.m. to 4 p.m. Oral Nutritional Drink Guidelines After Surgery: When able to start taking a diet after surgery, resume taking 2-3 high protein nutritional drinks (immune enhancing or other high protein nutritional drinks) for 5-7 days. Depending on your nutritional status before or after surgery, you may benefit from continuing with an oral nutritional drink for at least 30 days. A registered dietitian may visit you if admitted to the hospital and help you to determine the typeand duration of the oral nutritional drink to help with your recovery. Questions for a Registered Dietitian: Call [phone] PLEASE NOTIFY your surgeon promptly if you begin to feel ill prior to your surgery. A wound or rash at the surgical site or any other kind of illness may require postponing the surgery to another date for your safety. If this occurs within 24 hours of your surgery, please contact your surgeon's office and then the OR desk at [phone], which is available 03/04. TING BINDERY ASSISTANT * [facility] - Brandi Gutiérrez RN - 10/09/2024 9:08 AM CST Images from the original note were not included. [facility] Routine Orders Protocol [facility] Approved by: [facility] - Medical Executive Committee Approval Date: 08/01/2024 SCOPE: For all patients being pre-screened in the [facility] for surgery/procedures scheduled at [facility] and the [facility] ORDERS ARE ENTERED ???PER PROTOCOL?? Enter the protocol in the patient's electronic health record using smartphrase: .paceroutineordersprotocol Laboratory Orders: [facility]/Anesthesiology Care Screening for Procedures Laboratory exams obtained within 3 months prior to surgery are acceptable if normal, or at baseline. Hematocrit/Hemoglobin ([id number]) Cases of expected major blood loss in patients of any age as evidenced by an order for Type and Cross or Type and Screen. PT/INR (Ctj204) should be drawn day of surgery for patients: Taking Warfarin (Coumadin) or who have had Warfarin (Coumadin) discontinued within prior 7 days BMP (Lab15) patients with: Diabetes Renal disease Dialysis patients: Day of Surgery; If dialysis on day of surgery, post-dialysis Patients taking the following medications: Digoxin Diuretics Steroids BUN (Djb693)/ Serum Cr (Lab66) When use of intravenous contrast dye is planned Liver function panel (Lab20) in any patient with: Jaundice, or active liver disease HgbA1c: If result not available from within 3 months of [facility] phone or in-person contact, for patients that meet the following conditions: Planned operation is a total hip/knee joint replacement, spinal fusion, total shoulder arthroplastyor reverse shoulder arthroplasty Hx of diabetes BMI > 35 (for major surgeries) EKG (EKG) 12 lead EKG EKG obtained within the last 3 months for the following: Known cardiac disease Patients undergoing cardiac, thoracic, or vascular surgery CIED Cardiac Symptoms: Angina, dysrhythmia, palpitations, SOB, PND, S3 Moderate or greater risk surgery with any of the following: Stroke/TIA/CVD, PAD/PVD, CKD (Cr > 2), DM, or Drugs or toxins that alter conduction (e.g., digoxin, cocaine, MAOIs, antiarrhythmics, antipsychotics, TCAs) Medication Orders - In preparation for surgery/procedure: Unless otherwise ordered by a member of the [facility] Anesthesiology Staff. STOP Seven (7) DAYS PRIOR TO SURGERY OR WHEN NOTIFIED IF < SEVEN DAYS: the use of all vitamins, herbal supplements, and other alternative substances. Seven (7) DAYS PRIOR TO SURGERY: The use of any UNPRESCRIBED Aspirin, Excedrin and NSAIDs which include Motrin, Ibuprofen, Aleve, and Naprosyn. The use of phentermine, or medications containing phentermine. GLP-1 agonists (dulaglutide (TRULICITY), exenatide (BYDUREON, BYETTA), liraglutide (SAXENDA, VICTOZA), semaglutide (OZEMPIC, RYBSELSUS, WEGOVY), tirzepatide (MOUNJARO)) If on daily dosing; HOLD ON THE MORINING OF SURGERY/PROCEDURE If on weekly dosing: STOP SEVEN (7) DAYS PRIOR TO SURGERY/PROCEDURE SGLT-2 inhibitor (dapagliflozin (FARXIGA), canagliflozin (INVOKANA), sotagliflozin (INPEFA) and empagliflozin (JARDIANCE)) STOP THREE (3) DAYS PRIOR TO SURGERY/PROCEDURE Ertugliflozin (STEGLATRO)-STOP FOUR (4) DAYS PRIOR TO SURGERY/PROCEDURE 24 HOURS PRIOR TO PLANNED ARRIVAL AT [facility]: use of angiotensin-converting enzyme (IFTIKHAR) inhibitor and angiotensin receptor lyudmila (ARB). HOLD ON THE MORNING OF SURGERY/PROCEDURE: Diuretics (EXCEPTION: patients with CHF) Opioid ANTAGONISTS Continue-Prescribed medications on usual schedule and take medication day of surgery with sips of water to swallow Aspirin and NSAIDS unless specifically instructed by surgeon to discontinue. Patients taking a gabapentinoid INKING MACHINE TENDER continue usual medication and doses up to and on the day of procedure All other prescription medicines on routine schedule as prescribed, unless instructed otherwise Place sign and held orders for the day of surgery for the following: Acetaminophen (TYLENOL) for adult patients 1000 mg, oral, pre-procedure once If unable to take tablet and those presenting for gastrectomy/gastric bypass, give acetaminophen oral solution (325 mg/10.15 mL) 975 mg, oral, pre-procedure once Antiemetic for adult patients (to be implemented in PreSurg for procedures scheduled for less than 2 hours) Ondansetron (ZOFRAN) ODT, 8 mg, oral, pre-procedure once Anti-inflammatory Medication for adult patients- celecoxib (CELEBREX) Protocol Exclusions: Intracranial surgery, spine fusion surgery, nephrectomy, cardiac, vascular, orurologic surgery and patients with WI/stent within 6 months, age greater than 90 years old HOLD CELECOXIB IF PREOPERATIVE TORADOL ORDERED For patients less than 70 years old, 400 mg, oral, pre-procedure once For patients greater than or equal to 70 years old, 200 mg, oral, pre-procedure once Blood Bank: For surgical procedures, prepare blood per [facility] Blood Bank Orders and Patient Identification for Blood Products Policy unless additional blood or blood products have been ordered by the provider, then follow provider order. Educational Materials: (to be provided to patients if relevant to their care and present in person to the [facility]) [facility] NPO Guidelines Attachment [facility] Nutrition Before Surgery Guidelines [facility] Instructions for Patient for Insulin Pump Attachment (for diabetic patients only) TING BINDERY ASSISTANT * Salome-OP - Jessica Abreu RN - 10/09/2024 8:25 AM CST [facility] (Pre-Anesthesia Consultation & Evaluation): We are sending this message because we missed you on our attempt to reach you for a pre-procedure phone call. It is imperative that the nursing staff speaks to you prior to your procedure. We need toreview your health history for anesthesia, send instructions and/or schedule you an appointment with our anesthesia providers prior to your procedure. Please call us as soon as possible to prevent any delays in your case. Monday - Monday 8:00am - 5:00pm. Thank you, [facility] [phone] TING BINDERY ASSISTANT documented in this encounter Plan of Treatment Upcoming Encounters Date Type Department Care Team (Late st Contact Info) Description 11/27/2024 4:30 PM CDT Telephone Check Up [facility] - [place] [address] [address] [place] [address] Kerwin Londono MD [address] [facility] [place] [id number] documented as of this encounter Visit Diagnoses Not on filedocumented in this encounter Care Teams Education And Training Coordinator Relationship Specialty Start Date End Date Petey Vasquez MD [address] [place] [address] PCP - General Family Practice 11/12/24 documented as of this encounter
[2024-11-14 13:41] LABS: Alanine Aminotransferase 48 U/L (14-59); Albumin Level 3.4 g/dL (3.4-5.0); Alkaline Phosphatase 188 U/L (46-116); Anion Gap 8 mmol/L (4-12); Aspartate Amino Transferase 24 U/L (15-37); Bilirubin,Total 0.4 mg/dL (0.00-1.00); Blood Urea Nitrogen 19 mg/dL (7-18); Calcium 9.6 mg/dL (8.5-10.1); Carbon Dioxide 28 mmol/L (21-32); Chloride 103 mmol/L (98-108); Estimated Glomerular Filt Rate 58; Ferritin 157 ng/mL (8-252); Folic Acid 4.1 ng/mL (8.6->20); Glucose 95 mg/dL (70-99); Iron 47 ug/dL (50-170); Magnesium 2.3 mg/dL (1.8-2.4); Osmolality Calculated 290 mOsm/kg (285-295); Percent Iron Saturation 14 % (12-57); Potassium 4.7 mmol/L (3.5-5.1); Sodium 139 mmol/L (136-145); Total Protein 7.3 g/dL (6.4-8.2); Vitamin B12 565 pg/mL (193-986)
[2024-11-14 13:43] LABS: Cholesterol 226 mg/dL (0-200); HDL Direct 59 mg/dL (40-60); LDL Cholesterol Calculated 143 mg/dL (<130); Triglycerides 120 mg/dL (0-150)
[2024-11-18 05:13] LABS: Methylmalonic Acid 135 nmol/L (69-390)
== END 2024-11-14 12:02 | disposition home or self-care (01) ==
LOC: CHSIMG 12:06
PROVIDERS: Internal Medicine Cardiovascular Disease; Student in an Organized Health Care Education/Training Program; PCP Family Medicine; Visit Provider Internal Medicine Hematology & Oncology
DX: I10 Essential (primary) hypertension (principal); E78.2 Mixed hyperlipidemia; I82.4Y2 Acute embolism and thrombosis of unspecified deep veins of left proximal lower extremity; I82.412 Acute embolism and thrombosis of left femoral vein; I82.432 Acute embolism and thrombosis of left popliteal vein; D64.9 Anemia, unspecified
CPT/HCPCS: 36415; 80053; 80061; 82607; 82728; 82746; 83540; 83550; 83735; 83921; 84238; 85025; 93971

== ENCOUNTER 2025-01-06 10:46 | Outpatient (RCR) | payer MEDICARE, OTHER, SELFPAY ==
--- NOTE | 2025-01-06 11:49 | PTOPEVAL1 ---
Assessment and note entered by Norris Klein Evaluation Information Assessment Status Evaluation ICD-10 Condition Codes (PT) Pain in Thoracic Spine M54.6,Pain in low back M54. 50,Radiculopathy, thoracolumbar region M54.15, Radiculopathy, lumbar region M54.16 Onset 01/07/24 Subjective Information Pt. reports experience low and mid back pain for at least the past year. She describes her pain as an ache across the mid back and across the low back, with occasional pain described into the right buttock and back of the right leg. She reports that her pain comes and goes. She reports that pain is worsened with sitting in one position and when getting out of bed. She reports that standing in one position will also increase her pain. She states that she does notice pain will ease if she is mobile. She reports that she is able to complete work at home but limited due to pain. She placement of a colostomy at the end of August, which she states also limits her. She states that her goal is to decrease her low back pain. Reported Pain Level Pain Score 6: Self Report Assessment PT Clinical Summary Pt. is a 69 year old female who enters the clinic with mid and low back pain. She presents with impaired flexibility, impaired gait, impaired postural awareness, l.e. weakness and functional decline. Continued skilled PT is indicated in order to improve these areas in order to improve pt. comfort with IADL performance. Plan of Care Interventions Electrical Stimulation,Gait Training,Hot Pack/Cold Pack,Manual Therapy,Neuro Re-education,Patient/ Caregiver Education,Therapeutic Activities, Therapeutic Exercise PT Services Indicated Yes Treatment Frequency and 3x/week x 12 visits Duration These treatments will address the objective and functional deficits as defined above. The patient will be advanced safely and appropriately in order for the patient to progress towards his/her prior level of function. Additional exercises will be introduced and as well as a comprehensive home exercise program upon discharge, if needed, ?to ensure carryover of functional gains achieved in the clinic. This treatment plan has been reviewed and agreement upon by the patient.
--- NOTE | 2025-01-30 15:28 | OPREHPOC ---
Outpatient Therapy Plan of Care This is a Multidisciplinary Plan of Care that may contain components documented by all disciplines (PT, OT, and ST.) PT Problem 1 PT Problem #1 Knowledge Deficit PT Goal 1 Goal / Goal Update Pt. will be independent with a HEP addressing trunk mobility and core strength. Target Visit 2 Progress Met PT Problem 2 PT Problem #2 Impaired Strength PT Goal 1 Goal / Goal Update Pt. will present with 4+/5 bilateral hip abduction and extension strength. met for extension Target Visit 12 Progress Partially Met PT Problem 3 PT Problem #3 Impaired Functional Mobility PT Goal 1 Goal / Goal Update Pt. will present with less than 20% limitation on the Oswestry indicating significant functional improvement. not met Pt. will report being able to stand for duration of 45 minutes with 4/10 pain at worst. not met Target Visit 12 Progress Not Met PT Problem 4 PT Problem #4 Impaired Safety Awareness PT Goal 1 Goal / Goal Update Pt. will demonstrate the ability to complete floor to waist lift with small object with proper mechanics and no pain increase. not met Target Visit 12 Progress Not Met
--- NOTE | 2025-01-30 15:28 | PTOPPROGNS ---
Assessment and note entered by JT File, PT Evaluation Information Assessment Status Progress ICD-10 Condition Codes (PT) Pain in Thoracic Spine M54.6,Pain in low back M54. 50,Radiculopathy, thoracolumbar region M54.15, Radiculopathy, lumbar region M54.16 Onset 01/07/24 Subjective Information patient is very sore today. she reports she is compliant with her HEP at home. she reports she has bouts off and on where her pain will get real severe, and she is unsure what causes it to flare up. Assessment PT Clinical Summary mrs. lara presents to skilled PT services today for her 10th skilled PT visit. she reports a high level of pain today in the back. she was limited in activities today due to her increased pain. however, she has shown improved hip extension strength today. patient would benefit from continued skilled PT within initial POC to decrease pain and work towards achievement of all goals to improve her quality of life/functional activity performance. Plan of Care Interventions Electrical Stimulation,Gait Training,Hot Pack/Cold Pack,Manual Therapy,Neuro Re-education,Patient/ Caregiver Education,Therapeutic Activities, Therapeutic Exercise PT Services Indicated Yes Treatment Frequency and continue per initial POC Duration These treatments will address the objective and functional deficits as defined above. The patient will be advanced safely and appropriately in order for the patient to progress towards his/her prior level of function. Additional exercises will be introduced and as well as a comprehensive home exercise program upon discharge, if needed, ?to ensure carryover of functional gains achieved in the clinic. This treatment plan has been reviewed and agreement upon by the patient.
--- NOTE | 2025-02-07 11:05 | OPREHPOC ---
Outpatient Therapy Plan of Care This is a Multidisciplinary Plan of Care that may contain components documented by all disciplines (PT, OT, and ST.) PT Problem 1 PT Problem #1 Knowledge Deficit PT Goal 1 Goal / Goal Update Pt. will be independent with a HEP addressing trunk mobility and core strength. Target Visit 2 Progress Met PT Problem 2 PT Problem #2 Impaired Strength PT Goal 1 Goal / Goal Update Pt. will present with 4+/5 bilateral hip abduction and extension strength. met for extension Target Visit 16 Progress Partially Met PT Problem 3 PT Problem #3 Impaired Functional Mobility PT Goal 1 Goal / Goal Update Pt. will present with less than 20% limitation on the Oswestry indicating significant functional improvement. not met Pt. will report being able to stand for duration of 45 minutes with 4/10 pain at worst. not met Target Visit 16 Progress Not Met PT Problem 4 PT Problem #4 Impaired Safety Awareness PT Goal 1 Goal / Goal Update Pt. will demonstrate the ability to complete floor to waist lift with small object with proper mechanics and no pain increase. not met Target Visit 16 Progress Not Met
--- NOTE | 2025-02-07 11:06 | PTOPREEVAL ---
Assessment and note entered by JT File, PT Evaluation Information Assessment Status Re-evaluation ICD-10 Condition Codes (PT) Pain in Thoracic Spine M54.6,Pain in low back M54. 50,Radiculopathy, thoracolumbar region M54.15, Radiculopathy, lumbar region M54.16 Onset 01/07/24 Subjective Information patient reports she is not as sore today as she was the last few visits. she reports she still has pain in the lower back that limits her ability to bend, reach, lift, etc. she reports she has been taking it easier the past few days, and feels this has helped to reduce her pain/symptoms. Reported Pain Level Pain Score 6: Self Report Assessment PT Clinical Summary mrs. bartlett presents to skilled PT with decreased pain and symptoms since her progress note. she displays slight improvement in the oswestry score today compared to progress note. however, she still has significant pain in the back, weakness of the LE's, and inability to perform functional activities such as bending and lifting. continued skilled PT is advised to improve patients remaining objective/functional deficits and achieve goals to improve her quality of life/ functional activity performance. Plan of Care Interventions Electrical Stimulation,Gait Training,Hot Pack/Cold Pack,Manual Therapy,Neuro Re-education,Patient/ Caregiver Education,Therapeutic Activities, Therapeutic Exercise PT Services Indicated Yes Treatment Frequency and continue skilled PT 2x weekly for 4 more visits Duration These treatments will address the objective and functional deficits as defined above. The patient will be advanced safely and appropriately in order for the patient to progress towards his/her prior level of function. Additional exercises will be introduced and as well as a comprehensive home exercise program upon discharge, if needed, ?to ensure carryover of functional gains achieved in the clinic. This treatment plan has been reviewed and agreement upon by the patient.
--- NOTE | 2025-02-13 10:37 | PCPTNOTE ---
Cancelled session. Reports her hip is out. Scheduled for next week.
--- NOTE | 2025-02-25 17:07 | PTOPDC ---
Assessment and note entered by Lexi Espinoza DPT Evaluation Information Assessment Status Discharge ICD-10 Condition Codes (PT) Pain in Thoracic Spine M54.6,Pain in low back M54. 50,Radiculopathy, thoracolumbar region M54.15, Radiculopathy, lumbar region M54.16 Onset 01/07/24 Subjective Information patient reports she can bend forward farther now than starting PT. She reports pain is not as intense but still present. Reported Pain Level Pain Score 3: Self Report Assessment PT Clinical Summary Mrs. Nicole attended 16 visits of skilled PT with good progressions towards goals. Although she did not meet goals she made good progress with improved ability to bend to pickling solution maker objects from the floor as well as improved LE strength. She continues to have pain but pain is less than start of PT. She is independent with HEP and is appropriate for DC at this time. Plan of Care PT Services Indicated No
== END 2025-02-25 20:00 | disposition home or self-care (01) ==
LOC: CHSPT 10:46
PROVIDERS: Visit Provider Student in an Organized Health Care Education/Training Program
DX: M51.34 Other intervertebral disc degeneration, thoracic region (principal); M51.379 Other intervertebral disc degeneration, lumbosacral region without mention of lumbar back pain or lower extremity pain
CPT/HCPCS: 97014; 97110; 97112; 97140; 97150; 97161; 97530; G0283

== ENCOUNTER 2025-02-10 12:16 | Outpatient (CLI) | payer MEDICARE, OTHER, SELFPAY ==
--- NOTE | ~2025-02-10 | DEXA_ITS ---
Bone Density Report Name: JAYE SIMPSON Age: 69 Sex: Female Ethnicity: White Date of : 1955 Indication: osteopenia; parental hip fracture; height loss; Referring Provider: MARCO ANTONIO OCAMPO Study: Bone densitometry was performed. Exam Date: February 10, 2025 Accession number: [id number] Bone Density: Region BMD T-score Z-score Classification AP Spine(L1, L2, L3) 0.902 -1.1 1.0 Osteopenia Femoral Neck (Left) 0.654 -1.8 0.1 Osteopenia Total Hip (Left) 0.872 -0.6 1.0 Normal Femoral Neck (Right) 0.700 -1.3 0.5 Osteopenia Total Hip (Right) 0.837 -0.9 0.7 Normal Femoral Neck Mean 0.677 -1.5 0.3 Osteopenia Total Hip Mean 0.854 -0.7 0.8 Normal World Health Organization criteria for BMD impression classify patients as: Normal (T-score at or above -1.0), Osteopenia (T-score between -1.0 and -2.5), or Osteoporosis (T-score at or below -2.5). 10-year Fracture Risk(1): Major Osteoporotic Fracture 15% Hip Fracture 3.5% Reported Risk Factors: [place] (), Neck BMD=0.654, BMI=39.6, parental fracture (1) FRAX(R) Version 3.08. Fracture probability calculated for an untreated patient. Fracture probability may be lower if the patient has received treatment. Previous Exams: Region Exam Age BMD T-score BMD Change BMD Change Date g/cm2 vs Baseline vs Previous AP Spine (L1-L3) 02/10/2025 69 0.902 -1.1 0.037 (4.2%)# 0.037 (4.2%)# 08/30/2022 67 0.866 -1.4 Total Hip(Left) 02/10/2025 69 0.872 -0.6 -0.024 (-2.7%) -0.024 (-2.7%) 08/30/2022 67 0.896 -0.4 Total Hip(Right) 02/10/2025 69 0.837 -0.9 -0.041 (-4.6%) -0.041 (-4.6%) 08/30/2022 67 0.878 -0.5 *Denotes significance at 95% confidence level, LSC for AP Spine = 0.022 g/cm2, LSC for Total Hip = 0.027 g/cm2 # Denotes dissimilar scan types or analysis methods Clinical Information Provided by Patient: Parent has had a hip fracture Has used the following medications: Boniva (i.e. ibandronate), Vitamin D Patient maximum height was 70 Menopause Age: 55 No regular weight bearing exercise Does not regularly consume dairy products Drinks caffeinated beverages Onset of menses at age 13 Number of children 2 Impression: The patient has low bone mass, based on the Left Femoral Neck T-score. The patient has risk factors, including: parental hip fracture. The BMD for the Total Hip(Right) decreased, changing by -4.6% since the last DXA exam. Discussion: BONE DENSITY IS LOW AT ONE OR MORE SKELETAL SITES. This patient's lowest T-score is low at one or more skeletal sites. It meets the World Health Organization's (WHO) criteria for ?low bone mass? (T-score between -1.0 and -2.5). The patient's 10-year risk of fracture as calculated by FRAX is less than the threshold where pharmacological therapy is recommended by the National Osteoporosis Foundation (NOF). However, all treatment decisions require clinical judgment and consideration of individual patient factors, including patient preferences, comorbidities, previous drug use, risk factors not captured in the FRAX model (e.g., frailty, falls, vitamin D deficiency, increased bone turnover, interval significant decline in bone density) and possible under or overestimation of fracture risk by FRAX. The patient should follow a healthful lifestyle (good nutrition with adequate calcium and vitamin D, and appropriate weight-bearing exercise). Follow-Up: Consider repeating this study in 2 years to reassess this patient's status, or sooner if there is some new clinical indication. Reported by: EVANGELINA on 02/10/2025 12:55:00 PM. Reviewed, dictated and finalized at location A.
--- OUTSIDE RECORDS SUMMARY | 2025-02-10 12:20 | XMS_ITS | Continuity of Care Document ---
Author Organization [facility] Address [address] [place] [address] [address] Phone Care Team Providers Care Procurement Inspector Name Role Phone Flo Brantley MD Unavailable Unavailable Procedures Procedure Date Work/medical disability examination [facility] X-ray exam lower spine 2-3 views 2007 Advance Directives Directive Yes / No Effective Date File Name No Information Encounters Encounter Description Practice Location Reason(s) For Visit Diagnoses Date Provider Providers Copied on Encounter Work/medical disability examination [facility], [address] [place] [address], [id number], tel:[phone] [facility] No Information [address] Rossi. [address] [place] [address], [id number] , . tel: [phone] Family History Family Member Type Diagnosis Age At Onset No Information Payers Payer name Insurance type Covered democrat ID Authoriza tion(s) Evalumed [id number] Social History Type Description Quantity Date Captured [...]
--- OUTSIDE RECORDS SUMMARY | 2025-02-10 12:21 | XMS_ITS | Clinical Summary ---
Author Organization [facility] Address [address] [place] [address] Phone Care Team Providers Care Wrapper Opener Name Role Phone Petey Vasquez MD Primary Care Provider [phone] Allergies Active Allergy Reactions Criticality Noted Date Comments Oxycodone Nausea and Vomiting,Unknown Medium 03/05/20 16 Medications metoprolol tartrate (LOPRESSOR) 25 mg tablet Take 25 mg by mouth daily. Active ezetimibe (ZETIA) 10 mg tablet Take 10 mg by mouth daily. Active alendronate (FOSAMAX) 70 mg tablet Take [...] furosemide (LASIX) 20 mg tablet 5 Active apixaban (ELIQUIS) 5 mg tablet Take 1 Tablet (5 mg) by mouth 2 times daily. 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 Diverticulitis of large inte peyman with abscess without bleeding 03/05/2016 Sigmoid diverticulitis Encounters Date Type Department Care Team Description 01/30/2025 External Device Data STL ABSTRACTION Provider, Abstract 12/24/2024 External Device Data STL ABSTRACTION Provider, Abstract 12/24/2024 External Device Data STL ABSTRACTION Provider, Abstract 12/17/2024 External Device Data STL ABSTRACTION Provider, Abstract 12/17/2024 External Device Data STL ABSTRACTION Provider, Abstract 11/28/2024 Refill [facility] - [address] [place] [address] Kerwin Lodnono MD 11/27/2024 4:30 PM CDT Telephone Check Up [facility] [address] [place] [id number] Kerwin Londono MD Chronic anemia (Primary Dx); Acute deep vein thrombosis (DVT) of proximal vein of left lower extremity (CMS/HCC) 11/27/2024 External Device Data STL ABSTRACTION Provider, Abstract 11/20/2024 External Device Data STL ABSTRACTION Provider, Abstract 11/19/2024 External Device Data STL ABSTRACTION Provider, Abstract 11/19/2024 Orders Only [facility] - [address] [place] [address] Kerwin Londono MD 11/18/2024 Results Follow-Up [facility] [address] [place] [address] Kerwin Londono MD US VENOUS DOPPLER LEG LEFT 11/16/2024 External Device Data STL ABSTRACTION Provider, Abstract 11/15/2024 External Device Data STL ABSTRACTION Provider, Abstract 11/15/2024 Orders Only [facility] - [address] [place] [address] Kerwin Londono MD 11/14/2024 Orders Only [facility] - [address] [place] [address] Kerwin Londono MD 11/13/2024 External Device Data STL ABSTRACTION Provider, Abstract 11/12/2024 3:00 PM POLICE CADET Office Visit [facility] - [address] [place] [address] Kerwin Londono MD Chronic anemia (Primary Dx); Acute deep vein thrombosis (DVT) of proximal vein of left lower extremity (CMS/HCC) from Last 3 Months Family History Medical [...] No 09/07/2024 Food Insecurity Answer Date Recorded Patient needs follow up regardin 01/07/2025 Transportation Needs Answer Date Record ed Patient needs follow up regardin 01/07/2025 Housing Stability Answer Date Recorded Social/Environmental Concerns No concerns Utility Needs Answer Date Recorded Patient needs follow up regardin 01/07/2025 Comments No Sex and Gender Information Value Date Recorded Sex Assigned at Female 09/22/2024 11:47 PM POLICE CADET Legal Sex Female 7:23 AM CDT Gender Identity Female 09/22/2024 11:47 PM POLICE CADET Sexual Orientation Straight 09/22/2024 11 :47 PM POLICE CADET Last Filed Vital Signs Vital Sign Reading Time Taken Comments Blood Pressure 80/46 11/12/2024 3:09 PM POLICE CADET Pulse 72 11/12/2024 3:01 PM POLICE CADET Temperature 36.9 C (98.4 F) 11/12/2024 3:01 PM POLICE CADET Respiratory Rate 15 11/12/2024 3:01 PM POLICE CADET Oxygen Saturation 96% 11/12/2024 3:01 PM POLICE CADET Inhaled Oxygen Concentration - - Weight 106.5 kg (234 lb 12.8 oz) 11/12/2024 3:01 PM POLICE CADET Height 170.2 cm (5' 7) 11/12/2024 3:01 PM POLICE CADET Body Mass Index 36.77 11/12/2024 3:01 PM POLICE CADET Plan of Treatment Upcoming Encounters Date Type Department Care Team (Late st Contact Info) Description 03/04/2025 2:30 PM CDT Office Visit [facility] - Bob [address] [place] [address] Kerwin Londono MD [address] [facility] [address] [place] [address] Health Maintenance Due Date Last Done Comments Pre-Diabetes and Diabetes Screening 1955 DTAP/TDAP/TD VACCINES (1 - Tdap) 1973 BREAST CANCER SCREENING 1994 FIT-DNA Q [...] Screening 08/15/2034 Medical Devices Implanted Type Area Community Affairs Manager Device Identifier Shelf Expiration Date Model / Serial / Lot Barrier Seprafilm 5x6in [id number] - [id number] Implanted:Q ty: 1 on 09/07/2024 by Phan Self MD at [facility] Adhesion Barrier N/A: Abdomen [employer] 06/26/2026 [id number] / / [id number] Clip Endo Mantis 2.8mm 235cm [id number] - [id number] Implanted:Q ty: 1 on 08/23/2024 by Raman Bailey MD at [facility] Clip N/A: Perianal [employer] PHI [id number] 02/22/2027 [id number] / / [id number] Clip Endo Mantis 2.8mm 235cm [id number] - [id number] Implanted:Q ty: 1 on 08/23/2024 by Raman Bailey MD at [facility] Clip N/A: Perianal [employer] PHI [id number] 02/22/2027 [id number] / / [id number] Stent Colonic [id number] - [id number] Implanted:Q ty: 1 on 08/23/2024 by Raman Bailey MD at [facility] Stent N/A: Perianal [employer] PHI [id number] 03/27/2026 [id number] / / [id number] Ivc Filter-08/12 Implanted:Q ty: 1 on 09/06/2024 by Dick Zelaya MD Inferior Vena Cava 06/10/2027 [id number] / / [id number] Description:Bourbon IVC Filte r implanted on 09/06/[address] Zelaya Procedures Procedure Name Priority Date/Time Associated Diagnosis Comments US VENOUS DOPPLER LEG LEFT Routine 11/14/2024 4:23 PM POLICE CADET METHYLMALONIC ACID Routine 11/14/2024 10 :37 AM POLICE CADET COMPREHENSIVE METABOLIC PANEL Routine 11/14/2024 9:18 AM POLICE CADET FLEXIBLE SIGMOIDOSCOPY REPORT 08/23/2024 4:22 PM POLICE CADET from Last 3 Months or Most Recently Relevant to Health Maintenance Results * US VENOUS DOPPLER LEG LEFT (11/14/2024 4:23 PM POLICE CADET) Anatomical Region Laterality Modality Lower Extremity Ultrasound us Kerwin Londono MD US ORDERABLES Final Result * METHYLMALONIC ACID (11/14/2024 10:37 AM POLICE CADET) Blood us Kerwin Londono MD CHEMISTRY ORDERABLES Final Resu lt * COMPREHENSIVE METABOLIC PANEL (11/14/2024 9:18 AM POLICE CADET) Blood us Kerwin Londono MD CHEMISTRY ORDERABLES Final Resu lt * FLEXIBLE SIGMOIDOSCOPY REPORT (08/23/2024 4:22 PM POLICE CADET) Narrative Procedure Note Raman Bailey MD - 08/23/2024 4:22 PM CST [facility] Endoscopy Patient Name: Guillermina Simpson Procedure Date: [...] signed electronically. Number of Addenda: [address]; [place] [address] Raman Bailey MD GI PROCEDURE ORDERABLES Final Result from Last 3 Months or Most Recently Relevant to Health Maintenance Insurance [facility] Address: [place] [address] MEDICARE PART A AND B [employer] MEDICARE PART A AND B [facility] Address: [address] [address] Advance Directives For more information, please contact: [phone] * Full Code (Latest Code Status on [...] 10:32 AM 03/06/2016 3:59 PM Care Teams Wrapper Opener Relationship Specialty Start Date End Date Petey Vasquez MD [address] [facility] [address] [facility] [address] [place] [address] PCP - General Family Practice 11/12/24
--- OUTSIDE RECORDS SUMMARY | 2025-02-10 12:21 | XMS_ITS | Encounter Summary ---
[facility] Organization [facility] Address [address] [place] [address] Care Team Providers Care Inspector Outside Steam Distribution Name Role Phone Petey Vasquez MD Primary Care Provider Reason for Visit * Auth/Cert (Routine) Specialty Diagnoses / Procedures Referred By Irwin t Referred To Contact Perioperative Diagnoses Non-healing surgical wound, initial encounter Procedures NE ANRCT XM SURG REQ ANES GENERAL SPI/EDRL DX NE NEG PRESSURE WOUND THERAPY NON DME <= 50 SQ CM EXAMINATION UNDER ANESTHESIA Phan Self MD [address] [facility] [address] [place] [address] Phone: tel: fax: [facility] Operating Room [address] [place] [address] Phone: tel: fax: Referral ID Status Reason Start Date Expiration Date Visits Re quested Visits Authorized [id number] 1 1 Encounter Details Date Type Department Care Team (Latest Contact Info) Description 10/11/2024 Hospital Encounter [facility] Operating Room [address] [place] [address] Phan Self MD [address] [facility] [address] [place] [phone] Non-healing surgical wound, initial encounter Social [...] Sex Assigned at Female 09/22/2024 11:47 PM REFUGE WORKER Legal Sex Female 7:23 AM CDT Gender Identity Female 09/22/2024 11:47 PM REFUGE WORKER Sexual Orientation Straight 09/22/2024 11 :47 PM REFUGE WORKER documented as of this encounter OR Notes * [facility]-OP - Brandi Gutiérrez RN - 10/09/2024 9:08 AM CST Images from the original note were not included. PRE-PROCEDURE INSTRUCTIONS [facility] Name: Guillermina Nicole Age: 69 y.o. Please report to the: Surgery Center - [address] [address] Date of Procedure: 10/11/24 Please follow these [...] office and then the OR desk at [phone], which is available 03/04. *Notify the PACE department ([phone]) of any changes in your medical condition or medications. If you have any questions, call the [facility]ACE Center at [phone]; Monday-Monday 7:30am-4:00pm Adult Fasting Instructions Outpatient and [...] any questions, call the [facility]ACE Center at [phone]?- Monday-Monday 7:30 a.m. - 4:00 p.m.? WITHIN [...] your surgery. BRING your insurance cards and route driver coin machines's license or photo ID. DO NOT BRING [...] immune enhancing nutrients, such as Arginine and Owupq-4-Hqjsv Acids, may result infewer surgical complications and [...] as Equate. Supplements available for purchase at [facility] - Ens[facility] Surgery, Ensure Max, Ensure Enlive, (phone: [phone]) Supplements are also available for purchase at [employer] and many other grocery stores and pharmacies. Day of Surgery Guidelines. Follow the Adult Fasting Instructions provided to you by the [facility] Center for your specific surgery. For questions regarding your day of surgery diet or fasting guidelines please call the [facility] Center at [phone], Monday-Monday. 7:30 a.m. to 4 p.m. Oral [...] recovery. Questions for a Registered Dietitian: Call [phone] PLEASE NOTIFY your surgeon promptly if you begin to feel ill prior to your surgery. A wound or rash at the surgical site or any other kind of illness may require postponing the surgery to another date for your safety. If this occurs within 24 hours of your surgery, please contact your surgeon's office and then the OR desk at [phone], which is available 03/04. GE WORKER * Salome-OP - Brandi Gutiérrez RN - 10/09/2024 9:08 AM CST Images from the original note were not included. [facility] Routine Orders Protocol [facility] Approved by: [facility] - Medical Executive Committee Approval Date: 08/01/2024 SCOPE: For all patients being pre-screened in the [facility]ACE Clinic for surgery/procedures scheduled at [facility] and the [facility] ORDERS ARE ENTERED ???PER PROTOCOL?? Enter the protocol in the patient's electronic health record using smartphrase: .paceroutineordersprotocol Laboratory Orders: PACE/Anesthesiology Care Screening for Procedures Laboratory exams obtained within 3 months prior to surgery are acceptable if normal, or at baseline. Hematocrit/Hemoglobin (Aop0619) Cases of expected major blood loss in patients of any age as evidenced by an order for Type and Cross or Type and Screen. PT/INR (Rfa098) should be drawn day of surgery for patients: Taking Warfarin (Coumadin) or who have had Warfarin (Coumadin) discontinued within prior 7 days BMP (Lab15) patients with: Diabetes Renal disease Dialysis patients: Day of Surgery; If dialysis on day of surgery, post-dialysis Patients taking the following medications: Digoxin Diuretics Steroids BUN (Mlu916)/ Serum Cr (Lab66) When use of intravenous [...] otherwise ordered by a member of the [facility] Anesthesiology Staff. STOP Seven (7) DAYS PRIOR [...] ARRIVAL AT [facility]: use of angiotensin-converting enzyme (IFTIKHAR) inhibitor and angiotensin receptor lyudmila (ARB). HOLD ON THE MORNING OF SURGERY/PROCEDURE: Diuretics (EXCEPTION: patients with CHF) Opioid ANTAGONISTS Continue-Prescribed medications on usual schedule and take medication day of surgery with sips of water to swallow Aspirin and NSAIDS unless specifically instructed by surgeon to discontinue. Patients taking a gabapentinoid FURNITURE SALESPERSON continue usual medication and doses up to [...] cardiac, vascular, orurologic surgery and patients with VT/stent within 6 months, age greater than 90 years old HOLD CELECOXIB IF PREOPERATIVE TORADOL ORDERED For patients less than 70 years old, 400 mg, oral, pre-procedure once For patients greater than or equal to 70 years old, 200 mg, oral, pre-procedure once Blood Bank: For surgical procedures, prepare blood per [facility] Blood Bank Orders and Patient Identification for Blood Products Policy unless additional blood or blood products have been ordered by the provider, then follow provider order. Educational Materials: (to be provided to patients if relevant to their care and present in person to the [facility] Clinic) [facility] NPO Guidelines Attachment [facility] FNS Nutrition Before Surgery Guidelines [facility] ANES [facility] Instructions for Patient for Insulin Pump Attachment (for diabetic patients only) GE WORKER * Salome-OP - Jessica Abreu RN - [...] 8:00am - 5:00pm. Thank you, PACE Staff [phone] GE WORKER documented in this encounter Plan of Treatment Upcoming Encounters Date Type Department Care Team (Late st Contact Info) Description 03/04/2025 2:30 PM CDT Office Visit [facility] - Bob [address] [facility] [address] [place] [address] Kerwin Londono MD [address] [facility] [address] [place] [address] documented as of this encounter Visit Diagnoses Not on filedocumented in this encounter Care Teams Inspector Outside Steam Distribution Relationship Specialty Start Date End Date Petey Vasquez MD [address] [facility] [address] [place] [address] PCP - General Family Practice 11/12/24 documented as of this encounter
[2025-02-10 13:03] LABS: Basophils Absolute Auto 0.07 K/mm3 (0.00-0.10); Basophils Percent Auto 0.8 % (0.0-1.0); Eosinophils Absolute Auto 0.14 K/mm3 (0.02-0.50); Eosinophils Percent Auto 1.5 % (1.0-6.0); Hematocrit 37.6 % (35.0-42.0); Hemoglobin 11.6 g/dL (11.7-13.8); Immature Granulocyte Absolute 0.05 K/mm3 (0.00-0.00); Immature Granulocyte Percent A 0.5 % (0.0-0.0); Lymphocytes Absolute Auto 2.54 K/mm3 (1.10-4.50); Lymphocytes Percent Auto 27.6 % (18.0-42.0); Mean Corpuscular HGB Conc 30.9 g/dL (32-36); Mean Corpuscular Hemoglobin 28.6 pg (27.0-31.0); Mean Corpuscular Volume 92.8 fL (78.0-102.0); Mean Platelet Volume 8.6 fl (9.2-11.8); Monocytes Absolute Auto 0.59 K/mm3 (0.10-0.90); Monocytes Percent Auto 6.4 % (2.0-11.0); Neutrophils Absolute Auto 5.81 K/mm3 (1.70-7.20); Neutrophils Percent Auto 63.2 % (50.0-70.0); Platelet Count Result 350 K/mm3 (150-420); Red Blood Count 4.05 M/mm3 (4.20-5.40); Red Cell Distribution Width 14.3 % (11.6-14.4); White Blood Count 9.2 K/mm3 (4.8-10.8)
[2025-02-10 13:21] LABS: Iron 69 ug/dL (37-170)
[2025-02-10 13:31] LABS: Percent Iron Saturation 21 % (20-50)
[2025-02-10 14:29] LABS: Folic Acid > 20.0 ng/mL (2.76->20)
== END 2025-02-10 12:17 | disposition home or self-care (01) ==
LOC: CHSIMG 12:18
PROVIDERS: PCP Family Medicine; Visit Provider Student in an Organized Health Care Education/Training Program
DX: D64.9 Anemia, unspecified (principal); M85.89 Other specified disorders of bone density and structure, multiple sites
CPT/HCPCS: 36415; 77080; 82607; 82728; 82746; 83540; 83550; 85025; 85027

== ENCOUNTER 2025-02-24 12:16 | Outpatient (CLI) | payer MEDICARE, OTHER, SELFPAY ==
--- NOTE | ~2025-02-24 | US_ITS ---
EXAMINATION: US venous doppler LE DATE: 02/24/2025 12:49 INDICATION: Deep venous thrombosis TECHNIQUE: Grayscale ultrasound images without and with compression and Doppler ultrasound images of the bilateral lower extremity veins were obtained. COMPARISON: 11/14/2024 FINDINGS: The visualized portions of right common femoral vein, profunda (deep) femoral vein, femoral vein, pop liteal vein, posterior tibial veins, peroneal veins, gastrocnemius vein and greater saphenous vein ou tflow are patent. 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 The second left femoral vein and popliteal vein remain patent and compressible. The visualized portions of left common femoral vein, profunda fe moral vein, gastrocnemius vein and greater saphenous vein outflow are patent. No noncompressible thro mbosed veins identified at the left calf although the left posterior tibial and peroneal veins were u nable to be definitively identified. IMPRESSION: 1. No deep venous thrombosis in the right lower limb. 2. Persistent deep venous thrombosis, nonocclusive in one of the paired left popliteal vein and occlu sive throughout one of the paired left femoral veins. The second of the paired left popliteal and fem oral veins remain patent as do the remaining visualized veins in the left lower limb. Reviewed, dictated and finalized at location A. IMPRESSION: 1. No deep venous thrombosis in the right lower limb. 2. Persistent deep venous thrombosis, nonocclusive in one of the paired left po pliteal vein and occlusive throughout one of the paired left femoral veins. The second of the paired left popliteal and femoral veins remain patent as do the remaining visualized veins in the left lower limb.
--- OUTSIDE RECORDS SUMMARY | 2025-02-24 13:12 | XMS_ITS | Clinical Summary ---
Author Organization [facility] Address 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 [place]plan[place]-enteric fistula 08/20/2024 Diverticulitis of large inte peyman with abscess without bleeding 03/05/2016 Sigmoid diverticulitis Encounters Date Type Department Care Team Description 02/10/2025 Orders Only [facility]ology - [place] [address] [place] [address] Kerwin Londono MD 01/30/2025 External Device Data STL ABSTRACTION Provider, Abstract 12/24/2024 External Device Data STL ABSTRACTION Provider, Abstract 12/24/2024 External Device Data STL ABSTRACTION Provider, Abstract 12/17/2024 External Device Data STL ABSTRACTION Provider, Abstract 12/17/2024 External Device Data STL ABSTRACTION Provider, Abstract 11/28/2024 Refill [facility]ology - [place] [address] [place] [address] Kerwin Londono MD 11/27/2024 4:30 PM CDT Telephone Check Up [facility]ology - [place] [address] [place] [address] Kerwin Londono MD Chronic anemia (Primary Dx); Acute deep vein thrombosis (DVT) of proximal vein of left lower extremity (CMS/HCC) 11/27/2024 External Device Data STL ABSTRACTION Provider, Abstract from Last 3 Months Family History Medical [...] Sex Assigned at Female 09/22/2024 11:47 PM MILL DRESSER Legal Sex Female 7:23 AM CDT Gender Identity Female 09/22/2024 11:47 PM MILL DRESSER Sexual Orientation Straight 09/22/2024 11 :47 PM MILL DRESSER Last Filed Vital Signs Vital Sign Reading Time Taken Comments Blood Pressure 80/46 11/12/2024 3:09 PM MILL DRESSER Pulse 72 11/12/2024 3:01 PM MILL DRESSER Temperature 36.9 C (98.4 F) 11/12/2024 3:01 PM MILL DRESSER Respiratory Rate 15 11/12/2024 3:01 PM MILL DRESSER Oxygen Saturation 96% 11/12/2024 3:01 PM MILL DRESSER Inhaled Oxygen Concentration - - Weight 106.5 kg (234 lb 12.8 oz) 11/12/2024 3:01 PM MILL DRESSER Height 170.2 cm (5' 7) 11/12/2024 3:01 PM MILL DRESSER Body Mass Index 36.77 11/12/2024 3:01 PM MILL DRESSER Plan of Treatment Upcoming Encounters Date Type Department Care Team (Late st Contact Info) Description 03/04/2025 2:30 PM CDT Office Visit [facility]cology [facility] Hematology - [place] [address] [facility] [address] [place] [address] Kerwin Londono MD [address] [facility] [address] [place] [address] Health Maintenance Due Date Last [...] Screening 08/15/2034 Medical Devices Implanted Type Area Oim Architect Device Identifier Shelf Expiration Date Model / Serial / Lot Barrier Seprafilm 5x6in [id number] - [id number] Implanted:Q ty: 1 on 09/07/2024 by Phan Self MD at [facility] Adhesion Barrier N/A: Abdomen SANOFI [employer]ENT[employer] PHARM 06/26/2026 [id number] / / [id number] Clip Endo Mantis 2.8mm 235cm [id number] - [id number] Implanted:Q ty: 1 on 08/23/2024 by Raman Bailey MD at [facility] Clip N/A: Perianal [employer] PHI [id number] 02/22/2027 [id number] / / [id number] Clip Endo Mantis 2.8mm 235cm [id number] - [id number] Implanted:Q ty: 1 on 08/23/2024 by Raman Bailey MD at [facility] Clip N/A: Perianal [employer] PHI [id number] 02/22/2027 [id number] / / [id number] Stent Colonic [id number] - [id number] Implanted:Q ty: 1 on 08/23/2024 by Raman Bailey MD at [facility] Stent N/A: Perianal [employer] PHI [id number] 03/27/2026 [id number] / / [id number] Ivc Filter-08/12 Implanted:Q ty: 1 on 09/06/2024 by Dick Zelaya MD Inferior Vena Cava 06/10/2027 [id number] / / [id number] Description:Jennie IVC Filte r implanted on 09/06/[address] Zelaya Procedures Procedure Name Priority Date/Time Associated Diagnosis Comments CBC WITH DIFFERENTIAL Routine 02/10/2025 3:15 PM CDT FLEXIBLE SIGMOIDOSCOPY REPORT 08/23/2024 4:22 PM MILL DRESSER from Last 3 Months or Most Recently Relevant to Health Maintenance Results * CBC WITH DIFFERENTIAL (02/10/2025 3:15 PM CDT) Blood us Kerwin Londono MD HEMATOLOGY ORDERABLES Final Res ult * FLEXIBLE SIGMOIDOSCOPY REPORT (08/23/2024 4:22 PM MILL DRESSER) Narrative Procedure Note Raman Bailey MD - 08/23/2024 4:22 PM CST [facility] Endoscopy Patient Name: Guillermina Simpson Procedure [...] of Addenda: [address]; [place] [address] Raman Bailey MD GI PROCEDURE ORDERABLES Final Result from Last 3 Months or Most Recently Relevant to Health Maintenance Insurance [facility] MEDICARE PART A AND B [employer] Express MEDICARE PART A AND B [facility] [employer] Member Subscriber Plan / Payer (Ef fective 2024-Present) Name:GUILLERMINA SIMPSON Relation to Subscriber:Spouse Name:Demetrio Simpson Date of :1952 Address: [address] [place] [address] Payer ID:Not on file Group ID:Not on file Type:[facility] Address: [place] [id number] Advance Directives For more information, please contact: [phone] * Full Code (Latest Code Status on [...] 10:32 AM 03/06/2016 3:59 PM Care Teams Contracting Analyst Relationship Specialty Start Date End Date Petey Vasquez MD [address] [facility] [address] [facility] [address] [place] [address] PCP - General Family Practice 11/12/24
--- OUTSIDE RECORDS SUMMARY | 2025-02-24 13:12 | XMS_ITS | Continuity of Care Document ---
Author Organization [facility] Address [address] [place] [address] [address] Phone Care Team Providers Care Distribution Agent Name Role Phone Flo Brantley MD Unavailable Unavailable Procedures Procedure Date Work/medical disability examination I M E X-ray exam lower spine 2-3 views 2007 Advance Directives Directive Yes / No Effective Date File Name No Information Encounters Encounter Description Practice Location Reason(s) For Visit Diagnoses Date Provider Providers Copied on Encounter Work/medical disability examination I M [facility] [employer] [facility], [address] [place] [address], [id number], tel:[phone] [facility] No Information [address] [place] [address], [id number] , . tel: [phone] Family History Family Member Type Diagnosis Age At Onset No Information Payers Payer name Insurance type Covered democrat ID Authoriza tion(s) Evalumed [id number] Social History Type Description Quantity Date Captured [...]
== END 2025-02-24 12:17 | disposition home or self-care (01) ==
LOC: CHSIMG 12:18
PROVIDERS: PCP Family Medicine; Visit Provider Internal Medicine Hematology & Oncology
DX: I82.432 Acute embolism and thrombosis of left popliteal vein (principal); I82.412 Acute embolism and thrombosis of left femoral vein
CPT/HCPCS: 93970

== ENCOUNTER 2025-07-01 12:49 | Outpatient (CLI) | payer MEDICARE, OTHER, SELFPAY ==
--- NOTE | ~2025-07-01 | US_ITS ---
EXAMINATION:US venous doppler LE LT INDICATION:Acute embolism TECHNIQUE: Multiple grayscale, color flow and Doppler images of the left lower extremity deep venous systems were obtained and reviewed. COMPARISON:Ultrasound dated 02/24/2025 FINDINGS: There is chronic thrombosis of the small segment of the mid femoral vein and a segment of one of 2 popliteal veins. Remainder of the left lower extremity veins are patent. IMPRESSION: 1: Chronic deep venous thrombosis of the left femoral and popliteal veins. Reviewed, dictated and finalized at location O.
--- OUTSIDE RECORDS SUMMARY | 2025-07-01 15:30 | XMS_ITS | Clinical Summary ---
Author Organization [facility] Address 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 [place]-enteric fistula 08/20/2024 Diverticulitis of large inte peyman with abscess without bleeding 03/05/2016 Sigmoid diverticulitis Encounters Date Type Department Care Team Description 06/24/2025 External Device Data STL ABSTRACTION Provider, Abstract 06/03/2025 External Device Data STL ABSTRACTION Provider, Abstract 05/27/2025 External Device Data STL ABSTRACTION Provider, Abstract 05/14/2025 External Device Data STL ABSTRACTION Provider, Abstract 04/16/2025 External Device Data STL ABSTRACTION Provider, Abstract [...] Sex Assigned at Female 09/22/2024 11:47 PM RECORD KEEPER Legal Sex Female 7:23 AM CDT Gender Identity Female 09/22/2024 11:47 PM RECORD KEEPER Sexual Orientation Straight 09/22/2024 11 :47 PM RECORD KEEPER Last Filed Vital Signs Vital Sign Reading Time Taken Comments Blood Pressure 127/70 03/04/2025 2:06 PM CDT Pulse 66 03/04/2025 2:06 PM CDT Temperature 36.9 C (98.5 F) 03/04/2025 2:06 PM CDT Respiratory Rate 15 03/04/2025 2:06 PM CDT Oxygen Saturation 94% 03/04/2025 2:06 PM CDT Inhaled Oxygen Concentration - - Weight 113.2 kg (249 lb 9.6 oz) 03/04/2025 2:06 PM CDT Height 170.2 cm (5' 7) 11/12/2024 3:01 PM RECORD KEEPER Body Mass Index 39.09 11/12/2024 3:01 PM RECORD KEEPER Plan of Treatment Health Maintenance Due Date Last Done Comments DTAP/TDAP/TD VACCINES (1 - Tdap) 1973 FIT-DNA Q 3 years 1999 FIT/FOBT Q 1 year 1999 PNEUMOCOCCAL VACCINE 50+ YEA RS (1 of 1 - PCV) 2004 RSV VACCINE (60+ or ) (1 - Risk 50-74 years 1-dose series) 2004 ZOSTER VACCINE (1 of 2) 2004 BREAST CANCER SCREENING 03/13/2025 03/13/20 24, 03/13/2024, 10/07/2022, Additional history exists INFLUENZA VACCINE (#1) 2025 Flex Sig/CT Colonography Q 5 years 08/23/2029 08/23/2024, 08/15/2024, 08/15/2024 OSTEOPOROSIS SCREENING 02/10/2030 5, 08/30/2022, 08/26/2020 COLORECTAL SCREENING 08/15/2034 08/15/2024, 08/15/20 Colorectal Cancer Screening 08/15/2034 Medical Devices Implanted Type Area Jigger Crown Pouncing Machine Operator Device Identifier Shelf Expiration Date Model / Serial / Lot Barrier Seprafilm 5x6in [id number] - [id number] Implanted:Q ty: 1 on 09/07/2024 by Phan Self MD at [facility] Adhesion Barrier N/A: Abdomen SANOFI [employer] PHARM 06/26/2026 [id number] / / [id number] Clip Endo Mantis 2.8mm 235cm [id number] - [id number] Implanted:Q ty: 1 on 08/23/2024 by Raman Bailey MD at [facility] Clip N/A: Perianal [employer] PHI [id number] 02/22/2027 [id number] / / [id number] Clip Endo Mantis 2.8mm 235cm [id number] - [id number] Implanted:Q ty: 1 on 08/23/2024 by Raman Bailey MD at [facility] Clip N/A: Perianal [employer] PHI [id number] 02/22/2027 [id number] / / [id number] Stent Colonic [id number] - [id number] Implanted:Q ty: 1 on 08/23/2024 by Raman Bailey MD at [facility] Stent N/A: Perianal [employer] PHI [id number] 03/27/2026 [id number] / / [id number] Ivc Filter-08/12 Implanted:Q ty: 1 on 09/06/2024 by Dick Zelaya MD Inferior Vena Cava 06/10/2027 [id number] / / [id number] Description:[place] IVC Filte r implanted on 09/06/[address] Zelaya Procedures Procedure Name Priority Date/Time Associated Diagnosis Comments FLEXIBLE SIGMOIDOSCOPY REPORT 08/23/2024 4:22 PM RECORD KEEPER from Last 3 Months or Most Recently Relevant to Health Maintenance Results * FLEXIBLE SIGMOIDOSCOPY REPORT (08/23/2024 4:22 PM RECORD KEEPER) Narrative Procedure Note Raman Bailey MD - 08/23/2024 4:22 PM CST [facility] Endoscopy Patient Name: Guillermina Simpson Procedure [...] of Addenda: [address]; [place] [address] Raman Bailey MD GI PROCEDURE ORDERABLES Final Result from Last 3 Months or Most Recently Relevant to Health Maintenance Insurance [employer] MEDICARE PART A AND B RX [employer] Express MEDICARE PART A AND B [employer] Advance Directives For more information, please contact: [phone] * Full Code (Latest Code Status on [...] 10:32 AM 03/06/2016 3:59 PM Care Teams General Farm Hand Relationship Specialty Start Date End Date Petey Vasquez MD [address] [facility] [address] [place] [address] PCP - General Family Practice 11/12/24
--- OUTSIDE RECORDS SUMMARY | 2025-07-01 15:30 | XMS_ITS | Encounter Summary ---
Author Organization [facility] Address [address] [place] [address] Care Team Providers Care Screwhead Polisher Name Role Phone Maureen Roman MD Primary Care Provider [phone] Petey Vasquez MD Primary Care Provider [phone] Encounter Details Date Type Department Care Team (Late st Contact Info) Description 08/19/2024 Hospital Follow-up Call [facility] Cardiovascular Care Unit [address] [place] [address] Coby Martinez RN Social History Tobacco Use Types Packs/Day Years Used Date Smoking Tobacco: Former Cigarettes 0.1 11 1 972 - 1982 Smokeless Tobacco: Never Alcohol Use Standard Drinks/Week Comments Not Currently 0 (1 standard drink = 0.6 oz pur e alcohol) [facility] Utilities Answer Date Recorded In the past 12 months has [facility], gas, oil, or water [employer] threatened to shut off services in your [...] any time in the past 12 m [facility], were you homeless or living in a detention (including now)? No 08/14/2024 Comments No Sex [...] on filedocumented in this encounter Care Teams Screwhead Polisher Relationship Specialty Start Date End Date Maureen Roman MD [address] [facility] [address] [place] [address] PCP - General FAMILY PRACTICE 08/14/24 08/25/24 Petey Vasquez MD [address] [facility] [address] [place] [address] PCP - General FAMILY PRACTICE 08/26/24 documented as of this encounter
--- OUTSIDE RECORDS SUMMARY | 2025-07-01 15:30 | XMS_ITS | Clinical Summary ---
Author Organization [facility] Address [address] [place] [address] Care Team Providers Care Lotteries Agent Name Role Phone Petey Vasquez MD Primary Care Provider [phone] Allergies Active Allergy Reactions Criticality Noted Date [...] Date Diagnosed Date Thrombus 08/14/2024 Colitis 08/14/2024 Social History Tobacco Use Types Packs/Day Years Used Date Smoking Tobacco: Former Cigarettes 0.1 11 1 972 - 1982 Smokeless Tobacco: Never Alcohol Use Standard Drinks/Week Comments Not Currently 0 (1 standard drink = 0.6 oz pur e alcohol) [facility] Utilities Answer Date Recorded In the past 12 months has th e electric, gas, oil, or water [employer] threatened to shut off services in your [...] any time in the past [facility], were you homeless or living in a care home (including now)? No 08/14/2024 Comments No Sex and Gender Information Value Date Recorded Sex Assigned at Not on file Legal Sex Female 8:11 PM CDT Gender Identity Not on file Sexual Orientation Not on file Last Filed Vital Signs Vital Sign Reading Time Taken Comments Blood Pressure 143/56 08/17/2024 8:04 AM FUEL CELL BUILDER Pulse 78 08/17/2024 8:04 AM FUEL CELL BUILDER Temperature 37 C (98.6 F) 08/17/2024 8:04 AM FUEL CELL BUILDER Respiratory Rate 18 08/17/2024 8:04 AM FUEL CELL BUILDER Oxygen Saturation 96% 08/17/2024 8:04 AM FUEL CELL BUILDER Inhaled Oxygen Concentration - - Weight 118.2 kg (260 lb 9.3 oz) 08/17/2024 5:54 AM FUEL CELL BUILDER Height 170.2 cm (5' 7) 08/14/2024 4:49 AM FUEL CELL BUILDER Body Mass Index 40.81 08/14/2024 4:49 AM FUEL CELL BUILDER Plan of Treatment Health Maintenance Due Date Last Done Comments Hepatitis C 1972 Mammogram Screening 1994 RSV Immunization or 60+ Years (1 - Risk 60-74 years 1-dose series) 2014 Annual Medicare Wellness Visit 2019 Dexa Scan (General) 2019 COVID-19 Vaccine (3 - season) 2025 08/18/2021, 01/23/2021 Influenza Adult (#1) 2025 05/14/2024, 06/16/2022, 08/18/2021, Additional history exists DTaP, Tdap and Td Vaccines (2 - Td or Tdap) 04/05/2026 04/05/2016 Colorectal Cancer Screening Flex Sig (5 Years) 08/15/2029 08/15/2024, 08/15/2024 Zoster Vaccines Completed 08/29/2019, 06/21/2019 Pneumococcal Vaccine: 50+ Years Completed 06/08/2020, 06/21/2019 Hepatitis A Vaccines Aged Out No long er eligible based on patient's age to complete this topic Meningococcal B Vaccine Aged Out No l onger eligible based on patient's age to complete this topic Meningococcal Vaccine Aged Out No didier avi eligible based on patient's age to complete this topic RSV Immunizations Under 20 Months Aged Out No longer eligible based on patient's age to complete this topic Procedures Procedure Name Priority Date/Time Associated Diagnosis Comments FLEX SIG GENERIC 08/15/2024 1:07 PM FUEL CELL BUILDER from Last 3 Months or Most Recently Relevant to Health Maintenance Results * FLEX SIG GENERIC (08/15/2024 1:07 PM FUEL CELL BUILDER) Melani Foreman MD [facility] Final Result from Last 3 Months or Most Recently Relevant to Health Maintenance Insurance MEDICARE [facility] Advance Directives * Full Code (Latest Code Status on File) Date Activated Date Inactivated Comments 08/14/2024 5:33 AM 08/17/2024 3:15 PM Care Teams Lotteries Agent Relationship Specialty Start Date End Date Petey Vasquez MD [address] [place] [address] PCP - General FAMILY PRACTICE 08/26/24
== END 2025-07-01 12:50 | disposition home or self-care (01) ==
LOC: CHSIMG 12:51
PROVIDERS: PCP Family Medicine; Visit Provider Internal Medicine Hematology & Oncology
DX: I82.432 Acute embolism and thrombosis of left popliteal vein (principal); I82.512 Chronic embolism and thrombosis of left femoral vein
CPT/HCPCS: 93971

== ENCOUNTER 2025-08-14 13:21 | Outpatient (CLI) | payer MEDICARE, OTHER, SELFPAY ==
--- NOTE | ~2025-08-14 | MM_ITS ---
EXAMINATION: MM screening ammy BI w francis HISTORY: Screening. TECHNIQUE: Craniocaudal and mediolateral oblique 3-D tomosynthesis images were obtained and synthetic 2-D images were generated. CAD analysis was submitted and interpreted. COMPARISON: 2023, 2022, and 2021. BREAST PARENCHYMAL COMPOSITION: Not Dense: There are scattered areas of fibroglandular FINDINGS: No suspicious masses are seen. There are no suspicious calcifications. No unexplained architectural distortion is seen. There are no skin or nipple abnormalities identified. There is no adenopathy seen on the images submitted. IMPRESSION: No mammographic evidence to suggest malignancy is seen. The patient may return to screening mammography as per ACR guidelines. BI-RADS 1 - Negative. Reviewed, dictated and finalized at location C. NG ROOM SUPERVISOR
== END 2025-08-14 13:22 | disposition home or self-care (01) ==
PROVIDERS: PCP Family Medicine; Visit Provider Student in an Organized Health Care Education/Training Program
DX: Z12.31 Encounter for screening mammogram for malignant neoplasm of breast (principal)
CPT/HCPCS: 77063; 77067